=== PATIENT | female | born 1955 | race Caucasian/White ===

== ENCOUNTER → 2016-06-26 | Outpatient (CLI) | payer OTHER ==
[~2016-06-26] MED LIST: ACCUNEB SO1.25 MG/1; ACETAMINOPHEN325 M1 PO; ASPIR 8181 MG PO; ATIVAN0.5 MG PO; ATORVASTATIN CA40 MG PO; CARVEDILOL3.125 MG PO; CYCLOBENZAPRINE5 MG PO; DEMADEX20 MG PO; DUONEB 2.5-0.5 M3 ML INH; GABAPENTIN 100100 MG PO; HYDROCODONE-AP1 EAC6 PO; JANUVIA25 MG PO; KEFLEX500 MG PO; LASIX 40 MG TAB40 M2 PO; LEVOTHYROXIN0.025 MG PO; LEVOTHYROXIN0.075 MG PO; MAGNESIUM OXID400 MG PO; MILK OF MA2400 MG/10 PO; MIRTAZAPINE15 M2 PO; MYLANTA PO; NICOTINE PATCH TRANSDERM; NICOTINE TRANSDE7 MG TRANSDERM; NORCO 5-325 TA1 EACH PO; PLAVIX 75 MG TA75 M1 PO; PREVALITE PACKET4 GM PO; PROTONIX40 M1 PO; SENNA8.6 MG PO; SENOKOT-S1 TA1 PO; TRIPHROCAPS SOFT1 MG PO; TUMS PO; VITAMIN D2000 UNIT PO; VITAMIN E400 UNIT PO; ZINC50 M1 PO
== END ==
LOC: RAD 12:51
DX: M19.011 Primary osteoarthritis, right shoulder (principal)

== ENCOUNTER → 2016-08-14 | Outpatient (CLI) | payer OTHER | LOC: RAD 14:52 | DX: J90 Pleural effusion, not elsewhere classified (principal) ==

== ENCOUNTER → 2016-08-21 | Outpatient (CLI) | payer OTHER ==
--- NOTE | ~2016-08-21 | CNG ---
[facility] [place] [address] CYTO-NONGYN REPORT PROCEDURE Name: PERNELL PEREZ Room #: REG [facility]..#: [id number] Admission: 08/21/16 Date of : 51 Discharge: Report #: [id number] Path Case #: [id number] CYTOPATHOLOGY REPORT COLLECTION DATE: 08/21/2016 RECEIVED DATE: 08/21/2016 SUBMITTING PHYS: Dr. Fady Corbin OTHER PHYS: JANES Cano CLINICAL HISTORY: Right pleural effusion. SPECIMEN(S) RECEIVED: A.Pleural fluid, Right * * * * * * * * * * * * FINAL DIAGNOSIS: A. Pleural fluid, Right: No malignant epithelial cells identified. Paucicellular specimen with rare reactive mesothelial cells showing focal reactive atypia and scattered acute and chronic inflammatory cells identified. PATHOLOGIST: Geeta Bonilla M.D. REPORT ELECTRONICALLY SIGNED BY: Geeta Bonilla M.D. DATE/TIME: 08/22/2016 11:40 * * * * * * * * * * * * GROSS PATHOLOGY: A. Pleural fluid, Right: The specimen is submitted unfixed, labeled "Pernell Perez". Received by the Cytology Department is 15 mL of cloudy yellow fluid. One ThinPrep slide and a cell block were prepared. (clt 08.21.2016) DELIVERY AND MAIL SORTER(S): PAWAN Munoz([facility]) INITIAL CPT CODE(S): A; 39228, 36496 Professional services performed by [facility] at [facility] [address], [place] [address] Technical services performed by [facility] at [address] [place] [address]., [address], [place] [address]. [facility] [address] [place] [address], [facility] [address] [place] [address] [facility] [address] [place] [address] CYTO-NONGYN REPORT PROCEDURE Name: PERNELL PEREZ Room #: REG CLDarron Rivera.#: [id number] Admission: 08/21/16 Date of : 51 Discharge: Report #: [id number] Path Case #: [id number] PHONE: [phone] DIRECTOR: Randy Parish M.D. * * * END OF REPORT * * *
[2016-08-21 13:12] LABS: HEMOGLOBIN 9.8 gm/dL (12.0-15.0); MCH 29.5 pg (26.0-34.0); MCHC 31.7 g/dL (28.0-37.0); MCV 93.1 fL (80.0-100.0); PLATELET COUNT 178 thou/uL (150-400); RBC 3.32 mil/uL (4.20-5.00); RDW 20.3 % (10.5-14.5); WBC 6.8 thou/uL (4.0-11.0)
[2016-08-21 13:14] LABS: MANUAL DIFF YES
[2016-08-21 13:23] LABS: CALCIUM 8.8 mg/dL (8.5-10.1); CREATININE 6.1 mg/dL (0.6-1.0); POTASSIUM 5.5 mmol/L (3.5-5.1)
[2016-08-21 13:24] LABS: INR 1.1; PROTIME 11.5 Seconds (9.3-11.4)
[2016-08-21 13:31] LABS: ABSOLUTE NEUTROPHILS 4.1 thou/uL (1.4-8.2); PLATELET ESTIMATE NORMAL; TOTAL CELL COUNT 100
[2016-08-21 14:39] LABS: BF NUCLEATED CELLS 360; BF RBC 420
[2016-08-21 14:40] LABS: MANUAL DIFF YES
[2016-08-21 15:03] LABS: CLARITY HAZY; COLOR YELLOW; TOTAL VOLUME 60 mL
[2016-08-21 15:35] LABS: BF MACROPHAGE 19; BF NEUTROPHILS 1
[2016-08-22 15:07] LABS: BODY FLUID ALBUMIN 1.5 g/dL (()); BODY FLUID AMYLASE 56 U/L (()); BODY FLUID GLUCOSE 152 mg/dL (()); BODY FLUID LDH 121 IU/L (())
== END ==
LOC: ULTRA 07:44
PROVIDERS: Internal Medicine Pulmonary Disease
DX: J90 Pleural effusion, not elsewhere classified (principal); D64.89 Other specified anemias

== ENCOUNTER → 2016-09-04 | Outpatient (CLI) | payer OTHER | LOC: RAD 08:26 | DX: J90 Pleural effusion, not elsewhere classified (principal) ==

== ENCOUNTER → 2016-10-04 | Outpatient (CLI) | payer OTHER | LOC: RAD 13:26 | DX: J90 Pleural effusion, not elsewhere classified (principal) ==

== ENCOUNTER → 2016-10-11 | Outpatient (CLI) | payer OTHER ==
[~2016-10-11] MED LIST changes: +BENADRYL25 MG PO; +CLARINEX5 MG PO; +JANUVIA100 MG PO; +METOLAZONE 5 MG5 MG PO; +PREDNISONE 10 M10 MG PO; +RENVELA800 MG PO; +SANDOSTATI50 MCG/1 M SUBQ; +VIRT-CAPS SOFTGE1 MG PO
--- NOTE | ~2016-10-11 | CNG ---
[facility] [employer] [place] [address] CYTO-NONGYN REPORT PROCEDURE Name: PERNELL PEREZ Room #: REG [facility]..#: [id number] Admission: 10/11/16 Date of : 51 Discharge: Report #: [id number] Path Case #: [id number] CYTOPATHOLOGY REPORT COLLECTION DATE: 10/11/2016 RECEIVED DATE: 10/11/2016 SUBMITTING PHYS: Dr. Fady Corbin OTHER PHYS: JANES Cano CLINICAL HISTORY: Pleural effusion. SPECIMEN(S) RECEIVED: A.Pleural fluid * * * * * * * * * * * * FINAL DIAGNOSIS: A. Pleural fluid: - No malignant epithelial cells identified. Reactive mesothelial cells and lymphocytes are present in a background of debris. PATHOLOGIST: Lisset Cook M.D. REPORT ELECTRONICALLY SIGNED BY: Lisset Cook M.D. DATE/TIME: 10/12/2016 14:22 * * * * * * * * * * * * GROSS PATHOLOGY: A. Pleural fluid: The specimen is submitted unfixed, labeled "Pernell Perez". Received by the Cytology Department is 15 mL of cloudy yellow fluid. One ThinPrep slide and a cell block were prepared. (clt 10.11.2016) BEVERAGE MANAGER(S): PAWAN Conner([facility]) INITIAL CPT CODE(S): A; 48326, 18891 Professional services performed by [facility] at [facility] [address] [facility] , [place] [address] Technical services performed by [facility] at [address] [place] [address]., [address], [place] [address]. [facility] [address] [place] [address], [facility] [address] [place] [address] PHONE: [phone] [facility] [address] [place] [address] CYTO-NONGYN REPORT PROCEDURE Name: PERNELL PEREZ Room #: REG CL Stormy.#: [id number] Admission: 10/11/16 Date of : 51 Discharge: Report #: [id number] Path Case #: [id number] DIRECTOR: Randy Parish M.D. * * * END OF REPORT * * *
[2016-10-11 10:43] LABS: HEMATOCRIT 25.9 % (37.0-47.0); MCV 93.5 fL (80.0-100.0); RBC 2.77 mil/uL (4.20-5.00); RDW 17.1 % (10.5-14.5); WBC 7.6 thou/uL (4.0-11.0)
[2016-10-11 10:59] LABS: CALCIUM 8.4 mg/dL (8.5-10.1); CREATININE 4.9 mg/dL (0.6-1.0); POTASSIUM 4.3 mmol/L (3.5-5.1)
[2016-10-11 11:01] LABS: APTT 24.9 Seconds (24.5-32.8); INR 1.1; PROTIME 11.3 Seconds (9.3-11.4)
[2016-10-11 13:44] LABS: BF NUCLEATED CELLS 461; BF RBC 978
[2016-10-11 17:11] LABS: BF NEUTROPHILS 0; CLARITY SLIGHTLY CLOUDY; COLOR YELLOW; MANUAL DIFF YES; TOTAL VOLUME 60 mL
[2016-10-11 17:12] LABS: BF COMMENTS MONOCYTE 1; BF MACROPHAGE 31
[2016-10-12 13:09] LABS: BODY FLUID ALBUMIN 1.6 g/dL (()); BODY FLUID AMYLASE 70 U/L (()); BODY FLUID GLUCOSE 145 mg/dL (()); BODY FLUID LDH 122 IU/L (()); BODY FLUID PROTEIN 3.3 g/dL (())
== END | disposition home or self-care (01) ==
LOC: ULTRA 09:48
PROVIDERS: Internal Medicine Pulmonary Disease
DX: J90 Pleural effusion, not elsewhere classified (principal)

== ENCOUNTER 2016-10-21 16:24 | Inpatient (IN) | payer OTHER ==
[~2016-10-21] VITALS: Ht 160 cm; Wt 74.6 kg
--- NOTE | ~2016-10-21 | CNG ---
[facility] [place] [address] CYTO-NONGYN REPORT PROCEDURE Name: PERNELL PEREZ Room #: 205-P [facility] IN M.R.#: [id number] Admission: 10/21/16 Date of : 51 Discharge: 10/23/16 Report #: [id number] Path Case #: [id number] CYTOPATHOLOGY REPORT COLLECTION DATE: 10/23/2016 RECEIVED DATE: 10/23/2016 SUBMITTING PHYS: Dr. Zbigniew Hdez OTHER PHYS: JANSE Cano CLINICAL HISTORY: SOA, itching, aching legs. SPECIMEN(S) RECEIVED: A.Pleural fluid, Right * * * * * * * * * * * * FINAL DIAGNOSIS: A. Right Pleural fluid: - No malignant epithelial cells identified. A few mesothelial cells and lymphocytes identified. PATHOLOGIST: Lisset Cook M.D. REPORT ELECTRONICALLY SIGNED BY: Lisset Cook M.D. DATE/TIME: 10/24/2016 13:54 * * * * * * * * * * * * GROSS PATHOLOGY: A. Pleural fluid, Right: The specimen is submitted unfixed, labeled "Pernell Perez". Received by the Cytology Department is 25 mL of yellow cloudy fluid. One ThinPrep slide and a cell block were prepared. (clt 10.23.2016) INSPECTOR ALIGNING(S): PAWAN Munoz([facility]) INITIAL CPT CODE(S): A; 39787, 21370 Professional services performed by [facility] at [facility] [address], [place] [address] Technical services performed by [facility] at [address] [place] [address]., [address], [place] [address]. [facility] [address] [place] [address], [address] [place] [address] PHONE: [phone] [facility] [address] [place] [address] CYTO-NONGYN REPORT PROCEDURE Name: PERNELL PEREZ Room #: 205-P [facility] IN M.R.#: [id number] Admission: 10/21/16 Date of : 51 Discharge: 10/23/16 Report #: [id number] Path Case #: [id number] DIRECTOR: Randy Parish M.D. * * * END OF REPORT * * *
--- NOTE | ~2016-10-21 | EKG ---
[address] [address] ELECTROCARDIOGRAM REPORT Name: PERNELL PEREZ Room #: 205-P ADM IN M.R.#: [id number] Admission: 10/21/16 Attend Phys: Zbigniew Hdez MD Discharge: Date of : 51 Report #: [id number] THIS REPORT FOR: //name// [facility] ED Test Date: 2016-10-21 Test Time: 16:48:15 Pat Name: PERNELL PEREZ Department: Room: [facility] Gender: F Food Operations Manager: JUSTINE : 1955 Requested By: Devendra Perrin Order Number: [id number] MD: Saul Johnson Measurements Intervals [place] Rate: 76 P: 41 MN: 131 QRS: 43 QRSD: 89 T: 41 QT: 428 QTc: 482 Interpretive Statements Sinus rhythm Anteroseptal infarct, old Compared to ECG 12/30/2015 15:45:46 Atrial premature complex(es) no longer present Myocardial infarct finding still present Electronically Signed On 10-21-2016 22:31:49 CDT by Saul Johnson [email or web address] <ELECTRONICALLY SIGNED> By: Saul Johnson MD 10/21/16 2231 1648 1648 Saul Johnson MD /EPI
[~2016-10-21 16:24] MED LIST changes: -BENADRYL25 MG PO; -CLARINEX5 MG PO; -JANUVIA100 MG PO; -METOLAZONE 5 MG5 MG PO; -PREDNISONE 10 M10 MG PO; -RENVELA800 MG PO; -SANDOSTATI50 MCG/1 M SUBQ; -VIRT-CAPS SOFTGE1 MG PO
[2016-10-21 16:30] VITALS: BP 109/67
[2016-10-21 17:21] LABS: ABSOLUTE NEUTROPHILS 4.1 thou/uL (1.4-8.2); BASOPHILS 2.2 % (0.0-2.0); EOSINOPHILS 4.7 % (0.0-3.0); HEMOGLOBIN 8.1 gm/dL (12.0-15.0); LYMPHOCYTES 20.7 % (24.0-44.0); MCH 28.7 pg (26.0-34.0); MCHC 32.2 g/dL (28.0-37.0); MCV 89.1 fL (80.0-100.0); MONOCYTES 9.2 % (1.0-8.0); PLATELET COUNT 195 thou/uL (150-400); POLYS 63.2 % (36.0-66.0); WBC 6.5 thou/uL (4.0-11.0)
[2016-10-21 17:22] LABS: MANUAL DIFF NO
[2016-10-21 17:38] LABS: ANION GAP 9 mmol/L (7-16); BUN 33 mg/dL (7-18); CHLORIDE 95 mmol/L (98-107); CO2 28 mmol/L (21-32); CREATININE 6.7 mg/dL (0.6-1.0); GLUCOSE 127 mg/dL (74-106); POTASSIUM 4.5 mmol/L (3.5-5.1); SODIUM 132 mmol/L (136-145)
[2016-10-21 17:44] LABS: NT-PRO BRAIN NAT PEPTIDE 8252 pg/mL (<300); TROPONIN-I < 0.04 ng/mL (<0.04-0.07)
[2016-10-21 19:18] VITALS: BP 113/73
[2016-10-21] MEDS ORDERED: METOLAZONE 5 MG5 MG PO (20:12)
[2016-10-21 20:54] VITALS: BP 155/62
[2016-10-21] MEDS ORDERED: VIRT-CAPS SOFTGE1 MG PO (21:02)
[2016-10-21] MEDS ORDERED: BENADRYL25 MG PO (21:04)
[2016-10-21] MEDS ORDERED: SANDOSTATI50 MCG/1 M SUBQ (21:06)
[2016-10-21] MEDS ORDERED: JANUVIA100 MG PO (21:07)
[2016-10-21] MEDS ORDERED: RENVELA800 MG PO (21:07)
[2016-10-21] MEDS ORDERED: CLARINEX5 MG PO (21:14)
[2016-10-21 22:07] LABS: ABG SAMPLE TYPE ARTERIAL; BE(vivo) 1.7 mmol/L (-2 to +3); HCO3 27.4 mmol/L (22.0-26.0); LACTATE 1.47 mmol/L (0.5-2.0); O2(CT) 11.8 mL/dL (15.0-23.0); PCO2 48.4 mmHg (35.0-45.0); PO2 82.4 mmHg (80.0-100.0); sO2 95.7 % (92.0-98.0); tCO2 28.8 mmol/L (24.0-30.0)
[2016-10-21 22:08] LABS: STICK SITE R.RADIAL
[2016-10-21 23:11] VITALS: BP 155/75
[2016-10-21 23:21] VITALS: BP 155/63
[2016-10-22] VITALS (8 sets, daily range): BP systolic 159–202; BP diastolic 62–88
[2016-10-22 02:36] LABS: HEMATOCRIT 25.1 % (37.0-47.0); HEMOGLOBIN 8.1 gm/dL (12.0-15.0); MCH 28.8 pg (26.0-34.0); MCHC 32.4 g/dL (28.0-37.0); MCV 88.9 fL (80.0-100.0); RBC 2.82 mil/uL (4.20-5.00); RDW 17.1 % (10.5-14.5); WBC 8.8 thou/uL (4.0-11.0)
[2016-10-22 02:43] LABS: CALCIUM 7.6 mg/dL (8.5-10.1); CREATININE 7.1 mg/dL (0.6-1.0)
[2016-10-22 02:49] LABS: POTASSIUM 5.5 mmol/L (3.5-5.1)
[2016-10-23] VITALS (7 sets, daily range): BP systolic 146–188; BP diastolic 57–82
[2016-10-23 03:00] LABS: HEMATOCRIT 24.1 % (37.0-47.0); HEMOGLOBIN 7.8 gm/dL (12.0-15.0); MCH 28.5 pg (26.0-34.0); MCHC 32.3 g/dL (28.0-37.0); MCV 88.3 fL (80.0-100.0); RBC 2.73 mil/uL (4.20-5.00); RDW 17.3 % (10.5-14.5); WBC 5.3 thou/uL (4.0-11.0)
[2016-10-23 03:12] LABS: CALCIUM 7.5 mg/dL (8.5-10.1)
[2016-10-23 03:16] LABS: CREATININE 3.9 mg/dL (0.6-1.0); POTASSIUM 3.5 mmol/L (3.5-5.1)
[2016-10-23 11:46] LABS: BF NUCLEATED CELLS 340; BF RBC 1382
[2016-10-23 11:49] LABS: CLARITY HAZY; COLOR YELLOW; TOTAL VOLUME 60 mL
[2016-10-23] MEDS ORDERED: PREDNISONE 10 M10 MG PO (12:34)
[2016-10-23 13:03] LABS: BF MACROPHAGE 16; BF NEUTROPHILS 0; MANUAL DIFF YES
[2016-10-24 15:07] LABS: BODY FLUID ALBUMIN 1.4 g/dL (()); BODY FLUID AMYLASE 57 U/L (()); BODY FLUID GLUCOSE 195 mg/dL (()); BODY FLUID LDH 124 IU/L (())
== END 2016-10-23 18:15 | disposition home or self-care (01) | DRG 190 ==
LOC: ER 16:24 → EROBS 18:18 → 2N 18:18
PROVIDERS: Emergency Medicine; Hospitalist; Nurse Practitioner Acute Care
PROC: 0W993ZX Drainage of Right Pleural Cavity, Percutaneous Approach, Diagnostic (ICD-10-PCS; principal; 2016-10-23)
PROC: BB4BZZZ Ultrasonography of Pleura (ICD-10-PCS; principal; 2016-10-23)
DX: J44.1 Chronic obstructive pulmonary disease with (acute) exacerbation (principal); N18.6 End stage renal disease; J90 Pleural effusion, not elsewhere classified; I50.9 Heart failure, unspecified; E11.22 Type 2 diabetes mellitus with diabetic chronic kidney disease; E03.9 Hypothyroidism, unspecified; E11.42 Type 2 diabetes mellitus with diabetic polyneuropathy; B19.20 Unspecified viral hepatitis C without hepatic coma; T50.995A Adverse effect of other drugs, medicaments and biological substances, initial encounter; I25.10 Atherosclerotic heart disease of native coronary artery without angina pectoris; Z99.2 Dependence on renal dialysis; Z93.0 Tracheostomy status; Z82.49 Family history of ischemic heart disease and other diseases of the circulatory system; Y92.89 Other specified places as the place of occurrence of the external cause; Z86.73 Personal history of transient ischemic attack (TIA), and cerebral infarction without residual deficits; Z86.718 Personal history of other venous thrombosis and embolism; Z87.81 Personal history of (healed) traumatic fracture; Z87.891 Personal history of nicotine dependence; Z90.710 Acquired absence of both cervix and uterus; Z88.8 Allergy status to other drugs, medicaments and biological substances
CPT/HCPCS: 10081; 32100

== ENCOUNTER → 2016-11-15 | Outpatient (CLI) | payer OTHER ==
[~2016-11-15] MED LIST changes: +BENADRYL25 MG PO; +CLARINEX5 MG PO; +JANUVIA100 MG PO; +METOLAZONE 5 MG5 MG PO; +PREDNISONE 10 M10 MG PO; +RENVELA800 MG PO; +SANDOSTATI50 MCG/1 M SUBQ; +VIRT-CAPS SOFTGE1 MG PO
== END ==
LOC: RAD 12:27
DX: J90 Pleural effusion, not elsewhere classified (principal); I51.7 Cardiomegaly; J98.11 Atelectasis

== ENCOUNTER → 2016-11-22 | Outpatient (CLI) | payer OTHER ==
--- NOTE | ~2016-11-22 | CNG ---
[facility] [place] [address] CYTO-NONGYN REPORT PROCEDURE Name: PERNELL PEREZ Room #: REG [facility].#: [id number] Admission: 11/22/16 Date of : 51 Discharge: Report #: [id number] Path Case #: [id number] CYTOPATHOLOGY REPORT COLLECTION DATE: 11/22/2016 RECEIVED DATE: 11/22/2016 SUBMITTING PHYS: Dr. Fady Corbin OTHER PHYS: JANES Cano CLINICAL HISTORY: Pleural effusion. SPECIMEN(S) RECEIVED: A.Pleural fluid, Right * * * * * * * * * * * * FINAL DIAGNOSIS: A. Pleural fluid, Right: - No malignant epithelial cells identified. Paucicellular specimen with rare mesothelial cells and predominantly chronic inflammatory cells (including occasional lymphocytes) are present. PATHOLOGIST: Geeta Bonilla M.D. REPORT ELECTRONICALLY SIGNED BY: Geeta Bonilla M.D. DATE/TIME: 11/23/2016 13:53 * * * * * * * * * * * * GROSS PATHOLOGY: A. Pleural fluid, Right: The specimen is submitted unfixed, labeled "Pernell Perez". Received by the Cytology Department is 35 mL of clear yellow fluid. One ThinPrep slide and a cell block were prepared. (clt 11.22.2016) SKIN CARE THERAPIST(S): PAWAN Conner([facility]) INITIAL CPT CODE(S): A; 17368, 19285 Professional services performed by [facility] at [facility] [address], [place] [address] Technical services performed by [facility] at [address] [place] [address]., [address], [place] [address]. [facility] [address] [place] [address], [facility] [address] [place], [place] [address] [place] [address] [place] [address] CYTO-NONGYN REPORT PROCEDURE Name: PERNELL PEREZ Room #: REG CLDarron Rivera.#: [id number] Admission: 11/22/16 Date of : 51 Discharge: Report #: [id number] Path Case #: [id number] PHONE: [phone] DIRECTOR: Randy Parish M.D. * * * END OF REPORT * * *
[2016-11-22 09:50] LABS: HEMATOCRIT 31.6 % (37.0-47.0); HEMOGLOBIN 9.8 gm/dL (12.0-15.0); MCH 27.5 pg (26.0-34.0); MCHC 31.1 g/dL (28.0-37.0); MCV 88.6 fL (80.0-100.0); RBC 3.57 mil/uL (4.20-5.00); WBC 5.7 thou/uL (4.0-11.0)
[2016-11-22 09:58] LABS: CALCIUM 8.5 mg/dL (8.5-10.1); CREATININE 4.5 mg/dL (0.6-1.0); POTASSIUM 3.6 mmol/L (3.5-5.1); PROTIME 10.7 Seconds (9.3-11.4)
[2016-11-22 11:00] LABS: CLARITY CLEAR; COLOR YELLOW; TOTAL VOLUME 60 mL
[2016-11-22 12:03] LABS: BF NUCLEATED CELLS 401; BF RBC 1538
[2016-11-22 12:45] LABS: BF MACROPHAGE 18; BF NEUTROPHILS 2; MANUAL DIFF YES
[2016-11-23 11:08] LABS: BODY FLUID ALBUMIN 1.4 g/dL (()); BODY FLUID AMYLASE 57 U/L (()); BODY FLUID GLUCOSE 120 mg/dL (()); BODY FLUID LDH 104 IU/L (()); BODY FLUID PROTEIN 2.7 g/dL (())
== END ==
LOC: RAD 09:00 → CAT 11:59
PROVIDERS: Internal Medicine Pulmonary Disease
DX: J90 Pleural effusion, not elsewhere classified (principal)

== ENCOUNTER → 2016-12-04 | Outpatient (CLI) | payer OTHER | LOC: RAD 12:24 | DX: J90 Pleural effusion, not elsewhere classified (principal); J98.11 Atelectasis ==

== ENCOUNTER → 2017-02-14 | Outpatient (CLI) | payer OTHER ==
[2017-02-14 10:05] LABS: HEMATOCRIT 28.7 % (37.0-47.0); HEMOGLOBIN 8.8 gm/dL (12.0-15.0); MCH 25.5 pg (26.0-34.0); MCHC 30.6 g/dL (28.0-37.0); MCV 83.4 fL (80.0-100.0); RBC 3.44 mil/uL (4.20-5.00); RDW 20.4 % (10.5-14.5); WBC 6.6 thou/uL (4.0-11.0)
[2017-02-14 10:16] LABS: PROTIME 10.7 Seconds (9.3-11.4)
[2017-02-14 10:17] LABS: CALCIUM 8.3 mg/dL (8.5-10.1); CREATININE 4.5 mg/dL (0.6-1.0); POTASSIUM 4.4 mmol/L (3.5-5.1)
== END | disposition home or self-care (01) ==
LOC: LABMALL 09:32
PROVIDERS: Internal Medicine Pulmonary Disease
DX: J90 Pleural effusion, not elsewhere classified (principal); J44.9 Chronic obstructive pulmonary disease, unspecified

== ENCOUNTER 2017-03-06 15:40 | Inpatient (IN) | payer OTHER ==
[~2017-03-06] VITALS: Ht 162.6 cm; Wt 65.8 kg
--- NOTE | ~2017-03-06 | HC ---
[facility] [address] [place] [address] CONSULTATION Name: PERNELL PEREZ Room #: 437-P ADM IN M.R.#: [id number] Admission: 03/07/17 Attend Phys: Vinny Olvera DO Discharge: Date of : 51 Report #: [id number] THIS REPORT FOR: //name// CC: Vinny Boswell DATE OF SERVICE: 03/07/2017 REASON FOR CONSULTATION: End-stage renal disease. REASON FOR PRESENTATION: Dizziness. HISTORY OF PRESENT ILLNESS: The patient is a 61-year-old who is well known to me. She is an end-stage renal disease, maintained on hemodialysis every Saturday, and Saturday. She is also known to have liver cirrhosis with recurrent ascites, pleural effusion. She has had repeated episodes of GI bleeding due to AV malformations with numerous hospitalizations related to her GI bleeding. She had a double balloon procedure done at [facility] and then after that she was started on some Sandostatin for her GI bleeding and this has stabilized her GI bleeding with a hemoglobin in the 9 range. She presented complaining of dizziness that started yesterday when she woke up and her way to the dialysis treatment. She completed her dialysis and then presented for further evaluation and management. No significant chest pain. She has vertigo for which she used to take meclizine. She has stopped taking that for some time because of improvement of her symptoms. No reported weakness in any part of her body. No numbness. No visual changes. No headache. She was admitted for further evaluation and management. Initial workup was reviewed and this was nonrevealing other than a right-sided pleural effusion. PAST MEDICAL HISTORY: Extensive and includes the followin. Diabetes mellitus. 2. End-stage renal disease, maintained on hemodialysis. 3. Liver cirrhosis with hepatitis C. 4. Chronic obstructive pulmonary disease. 5. Recurrent pleural effusion. 6. Recurrent gastrointestinal bleeding. 7. Status post hysterectomy. 8. Status post left rotator cuff repair. 9. Status post cardiac arrest requiring ICU stay with a complete heart block. 10. Status post DVT. 11. Coronary artery disease with multiple stents. 12. Left AV fistula. 13. Repeated thoracentesis and paracentesis for both pleural effusion and ascites. [facility] [address] [place] [address] CONSULTATION Name: PERNELL PEREZ Room #: [facility] IN .R.#: [id number] Admission: 03/07/17 Attend Phys: Vinny Olvera DO Discharge: Date of : 51 Report #: [id number] FAMILY HISTORY: Significant for stroke. SOCIAL HISTORY: No drug or alcohol abuse. She is a former smoker. She smoked for 40 years 1 pack per day. She quit a few years ago. REVIEW OF SYSTEMS: GENERAL: Weakness and dizziness. CARDIOVASCULAR: Occasional shortness of breath. PULMONARY: Shortness of breath. GASTROINTESTINAL: No hematemesis or melena. GENITOURINARY: Still makes little amount of urine. No frequency, no urgency. NEUROLOGICAL: As per the history of present illness. MEDICATIONS: 1. Amlodipine. 2. Atorvastatin. 3. Pantoprazole. 4. Sevelamer. 5. Clarinex. 6. Lyrica. 7. Octreotide. PHYSICAL EXAMINATION: GENERAL: The patient is alert, oriented, in no apparent distress. VITAL SIGNS: Temperature 36.7, pulse rate 72, respiratory rate 17, blood pressure 136/44. HEAD AND NECK: No jugular venous distention, no bruit, no thyromegaly. CHEST: Decreased air entry on the right side. CARDIOVASCULAR: Regular, with no rub detected. ABDOMEN: Soft, nontender with no hepatosplenomegaly. LOWER EXTREMITIES: No edema. LABORATORY DATA: Reviewed. BUN is 16, creatinine is 3. Hemoglobin is 7.7. Chest x-ray reviewed. ASSESSMENT, IMPRESSION AND PLAN: 1. Vertigo. 2. End-stage renal disease, maintained on dialysis. 3. Recurrent pleural effusion. 4. Hep C with recurrent ascites 5. Coronary artery disease. 6. Chronic obstructive pulmonary disease. 7. Hypothyroidism. 8. Repeated episodes of gastrointestinal bleeding. 9. Dialysis will be arranged for the patient to be done tomorrow[place] [address] CONSULTATION Name: PERNELL PEREZ Room #: 437-P [facility] IN M.R.#: [id number] Admission: 03/07/17 Attend Phys: Vinny Olvera DO Discharge: Date of : 51 Report #: [id number] for very gentle ultrafiltration with the dialysis tomorrow. She has significant right-sided pleural effusion and pulmonary usually follows her. She is also known to have repeated episodes of gastrointestinal bleeding and I will resume her octreotide. 10. Continue with her usual home medications including her phosphorus binders, peripheral neuropathy medications, thyroid medications. By: 1043 [id number] Shen Torres MD /nt
--- NOTE | ~2017-03-06 | EKG ---
[address] [address] ELECTROCARDIOGRAM REPORT Name: PERNELL PEREZ Room #: 437-P [facility]#: [id number] Admission: 03/06/17 Attend Phys: Willy Dyson MD Discharge: Date of : 51 Report #: [id number] THIS REPORT FOR: //name// [facility] ED Test Date: 2017-03-06 Test Time: 16:09:39 Pat Name: PERNELL PEREZ Department: Room: [facility] Gender: F Feed Mixer: MZOOK : 1955 Requested By: Scot Snyder Order Number: [id number] MD: Saul Johnson Measurements Intervals [place] Rate: 70 P: 45 MA: 170 QRS: 57 QRSD: 94 T: 30 QT: 428 QTc: 462 Interpretive Statements Sinus rhythm Baseline wander in lead(s) V2 Compared to ECG 10/21/2016 16:48:15 Myocardial infarct finding no longer present Electronically Signed On 03-06-2017 21:23:19 [employer] SUPERVISOR by Saul Johnson [email or web address] <ELECTRONICALLY SIGNED> By: Saul Johnson MD 03/06/17 2123 1609 1609 Saul Johnson MD /EPI
--- NOTE | ~2017-03-06 | HC ---
[facility] [address] [place] [address] CONSULTATION Name: PERNELL PEREZ Room #: 437-P ADM IN M.R.#: [id number] Admission: 03/07/17 Attend Phys: Vinny Olvera DO Discharge: Date of : 51 Report #: [id number] THIS REPORT FOR: //name// CC: Vinny Boswell DATE OF SERVICE: 03/08/2017 HISTORY OF PRESENT ILLNESS: The patient is a 61-year-old white female who is a chronic dialysis patient over approximately the last year. She had an episode of severe dizziness prior to dialysis and was admitted to [facility]. She underwent evaluation and MRI showed a small acute subacute ischemic infarct of the right posterior lateral temporal lobe. Her main complaint has been dizziness with position change. She is on Antivert, which seems to help. She also has a premorbid history of neuropathy affecting her hands and her feet. Neurology is involved and she has the infarct of the right temporal lobe and also appears to have a concurrent viral labyrinthitis. She has had a significant functional decline and we are seeing her in rehabilitation medicine consultation. PAST MEDICAL HISTORY: Includes end-stage renal disease on hemodialysis since last May, non-insulin dependent diabetes mellitus, liver cirrhosis with hepatitis C, hypothyroidism, COPD, peripheral neuropathy, left rotator cuff repair, right knee surgery. Complete heart block, was ventilated 02/03/2015 through 02/06/2015. DVT 02/03/2015. Coronary artery disease with stenting 12/22/2016, multiple thoracenteses for recurrent pleural effusions. ALLERGIES: ESTROGENS, INSULIN LISPRO AND METHOCARBAMOL. MEDICATIONS: Please see the full medication listing. HABITS: Former tobacco abuse, quit greater than a year ago. Has a 75-xavs-mkap history. No history of alcohol abuse. SOCIAL HISTORY: Lives in an apartment alone, elevator is present. She premorbidly utilized a walker and also has a wheelchair. There are no steps. She has a sister that lives on the first floor of the same apartment complex. REVIEW OF SYSTEMS: Did not offer any current complaints of chest pain, shortness of breath or abdominal discomfort. Her main complaint is the dizziness with attempted sitting up. She notes she is right handed. She has concern regarding her balance and functional mobility and ADLs. PHYSICAL EXAMINATION: GENERAL: A 61-year-old white female in no obvious distress. VITAL SIGNS: Last recorded temperature is 98.1, pulse 64, respirations 18, [facility] [address] [place] [address] CONSULTATION Name: PERNELL PEREZ Room #: 437-P [facility] ..#: [id number] Admission: 03/07/17 Attend Phys: Vinny Olvera DO Discharge: Date of : 51 Report #: [id number] blood pressure 151/76. She is alert, pleasant. HEENT: Appeared to be benign. NEUROLOGIC: Cranial nerves: She does have some lateral nystagmus, but no horizontal nystagmus. She was able to verbalize reasonably well. She is currently on dialysis through the left arm fistula and I did not do a full examination of the left upper extremity. She appears to have reasonable coordination of the left thumb, wrist and hand. Functional range of motion of the right upper extremity, strength is grade 4/5. She does reasonably good with yzdaar-zf-lnic. LOWER EXTREMITIES: Functional range of motion, strength is grade 4- proximally, 3+ distally. She does have decreased distal sensation both feet and distal hands. DTRs are trace to 1. Functionally, she is needing contact to min assist for basic transfers and short distance ambulation. She has to move slowly. ASSESSMENT: A 61-year-old white female with the following problem list: 1. Right posterior lateral temporal lobe ischemic stroke. 2. Viral labyrinthitis. 3. End-stage renal disease, on hemodialysis. 4. Premorbid significant peripheral neuropathy affecting both distal upper and lower extremities. 5. Chronic obstructive pulmonary disease. 6. Liver cirrhosis with hepatitis C. 7. Recurrent gastrointestinal bleeding. 8. Prior cardiac arrest with complete heart block. 9. History of coronary artery disease with multiple stents. 10. History of repeated thoracentesis and paracentesis for both pleural effusion and ascites. 11. Status post hysterectomy. PLAN: Complex lady with an acute stroke complicated by comorbid viral labyrinthitis. She does meet criteria for an acute in-hospital inpatient rehabilitation stay. She has had a significant functional decline from her premorbid level. From a preadmission screening perspective: 1. Prior level of function is delineated above. 2. Expected level of improvement would be for her to become modified independent with basic transfers, mobility and ADLs at the walker/wheelchair level as well as to improve as far as cognition and decrease in her overall dizziness. 3. Evaluation of the patient's risk for clinical complications. She has multiple significant comorbidities and has potential complications with any or all of them with her potential for GI bleeding, significant cardiac events, pleural effusions, lung disease, kidney disease, etc. 4. Condition that caused the need for rehabilitation would be the acute stroke. 5. Treatments needed would include PT, OT and speech 1 hour per day each five days a week throughout the duration of the acute inpatient rehabilitation stay. 6. Anticipated discharge destination will be back home where she lives alone. [address] [address] CONSULTATION Name: PERNELL PEREZ Room #: 437-P ADM IN M.R.#: [id number] Admission: 03/07/17 Attend Phys: Vinny Olvera DO Discharge: Date of : 51 Report #: [id number] 7. Would anticipate home healthcare therapies along with involvement of her sister. 8. The patient meets diagnostic criteria for an acute in-hospital inpatient rehabilitation stay. She meets medical necessity criteria and has considerable medical comorbidities as noted above. She does have tolerance for an acute rehab stay and has appropriate discharge goals back to the home setting. By: [id number] Nicanor Becerra MD /MITCH
--- NOTE | ~2017-03-06 | CNG ---
[facility] [place] [address] CYTO-NONGYN REPORT PROCEDURE Name: PERNELL PEREZ Room #: 437-P ADM IN M.R.#: [id number] Admission: 03/07/17 Date of : 51 Discharge: Report #: [id number] Path Case #: [id number] CYTOPATHOLOGY REPORT COLLECTION DATE: 03/08/2017 RECEIVED DATE: 03/08/2017 SUBMITTING PHYS: Dr. Vinny Olvera OTHER PHYS: JANES Cano CLINICAL HISTORY: Chest fluid, dizziness SPECIMEN(S) RECEIVED: A.Pleural fluid * * * * * * * * * * * * FINAL DIAGNOSIS: A. Pleural fluid: - No malignant cells identified. -Few mesothelial cells, macrophages and inflammatory cells identified. PATHOLOGIST: Lisset Cook M.D. REPORT ELECTRONICALLY SIGNED BY: Lisset Cook M.D. DATE/TIME: 03/11/2017 16:15 * * * * * * * * * * * * GROSS PATHOLOGY: A. Pleural fluid: The specimen is submitted unfixed, labeled "Pernell Perez". Received by the Cytology Department is 15 mL of cloudy red fluid. One ThinPrep slide and a formalin fixed cell block were prepared. (lg.) LEAD SOFTWARE TESTER(S): PAWAN Trejo([facility]) INITIAL CPT CODE(S): A; 60355, 04912 Professional services performed by [facility] at [facility] [employer] , [place] [address] Technical services performed by [facility] at [address] [place] [address]., [address], [place] [address]. [facility] [address] [place] [address], [facility] [address] [place] [address] PHONE: [phone] [facility] [address] [place] [address] CYTO-NONGYN REPORT PROCEDURE Name: PERNELL PEREZ Room #: 437-P ADM IN M.R.#: [id number] Admission: 03/07/17 Date of : 51 Discharge: Report #: [id number] Path Case #: [id number] DIRECTOR: Randy Parish M.D. * * * END OF REPORT * * *
--- NOTE | ~2017-03-06 | 2DMMODE ---
Formerly [facility] [address] [place] [address] 2 D/M-MODE ECHOCARDIOGRAM Name: PERNELL PEREZ Room #: 437-P ADM IN ..#: [id number] Admission: 03/07/17 Attend Phys: Vinny Olvera, Discharge: Date of : 51 Date of Service: 03/11/17 1545 Report #: [id number] THIS REPORT FOR: //name// APPROVED REPORT Study performed: 03/11/2017 13:29:09 EXAM: Comprehensive 2D, Doppler, and color-flow Echocardiogram Patient Location: Bedside Room #: 437 Status: routine BSA: 1.71 HR: 77 bpm BP: 126/72 mmHg Other Information Study Quality: Adequate Indications COPD CVA/TIA Diabetes Dyspnea Echo Enhancing Agent Indication: Rule out Shunt Agent(s) / Amount(s) Used: Agitated Saline 7 cc 2D Dimensions RVDd: 33.90 mm LVEF(%): 69.29 (>50%) IVSd: 11.15 (7-11mm) LVOT Diam: 18.75 (18-24mm) LVDd: 50.30 mm PWd: 10.79 (7-11mm) Ascending Ao: 30.12 (22-36mm) LVDs: 30.62 (25-40mm) Aortic Root: 30.99 mm IVC: 20.00 mm Mina's LVEF: 69.29 % Volumes Left Atrial Volume (Systole) Single Plane 4CH: 71.78 mL Single Plane 2CH: 61.32 mL LA ESV Index: 43.00 mL/m2 Aortic Valve AoV Peak Tulio.: 1.79 m/s AO Peak Gr.: 12.89 mmHg LVOT Max P.69 mmHg Formerly [facility] [address] [place] [address] 2 D/M-MODE ECHOCARDIOGRAM Name: PERNELL PEREZ Room #: 437-P [facility] IN ..#: [id number] Admission: 03/07/17 Attend Phys: Vinny Olvera, Discharge: Date of : 51 Date of Service: 03/11/17 1545 Report #: [id number] LVOT Max V: 1.29 m/s LUZ MARIA Vmax: 1.99 cm2 Mitral Valve E/A Ratio: 1.2 MV Decel. Time: 194.73 ms MV E Max Tulio.: 1.52 m/s MV A Tulio.: 1.28 m/s MV PHT: 56.47 ms IVRT: 73.82 ms Pulmonary Valve PV Peak Tulio.: 1.23 m/s PV Peak Gr.: 6.05 mmHg Pulmonary Vein P Vein S: 0.35 m/s P Vein A: 0.19 m/s P Vein D: 0.56 m/s P Vein A Dur.: 106.1 msec P Vein S/D Ratio: 0.63 Tricuspid Valve TR Peak Tulio.: 3.59 m/s TR Peak Gr.: 51.62 mmHg PA Pressure: 67.00 mmHg Left Ventricle The left ventricle is normal size. There is normal left ventricular wall thickness. Left ventricular systolic function is hyperdynamic. LVEF is 60-65%. Grade I - abnormal relaxation pattern. Right Ventricle The right ventricle is normal size. The right ventricular systolic function is normal. Atria Left atrium is dilated. Right atrium is dilated. Aortic Valve The aortic valve is normal in structure. Aortic valve is calcified. No aortic regurgitation is present. There is no aortic valvular stenosis. Mitral Valve The mitral valve is normal in structure. Mild mitral regurgitation. No evidence of mitral valve stenosis. Tricuspid Valve Formerly [facility] [address] [place] [address] 2 D/M-MODE ECHOCARDIOGRAM Name: PERNELL PEREZ Room #: 437-P [facility] IN [facility]#: [id number] Admission: 03/07/17 Attend Phys: Vinny Olvera, Discharge: Date of : 51 Date of Service: 03/11/17 1545 Report #: [id number] The tricuspid valve is normal in structure. There is mild tricuspid regurgitation. Estimated PAP 67 mmHg. There is moderate-severe pulmonary hypertension. Pulmonic Valve The pulmonary valve is normal in structure. Trace pulmonic regurgitation. Great Vessels The aortic root is normal in size. The inferior vena cava is dilated with no inspiratory collapse. Pericardium There is no pericardial effusion. <Conclusion> The left ventricle is normal size. LVEF is 60-65%. Left atrium is dilated. Right atrium is dilated. The aortic valve is normal in structure. Aortic valve is calcified. There is no aortic valvular stenosis. The mitral valve is normal in structure. Mild mitral regurgitation. The tricuspid valve is normal in structure. There is mild tricuspid regurgitation. Estimated PAP 67 mmHg. There is moderate-severe pulmonary hypertension. The pulmonary valve is normal in structure. Trace pulmonic regurgitation. There is no pericardial effusion. <ELECTRONICALLY SIGNED> By: Tay Galarza MD 03/11/17 1545 1545 1545 Tay Galarza MD /INF
[~2017-03-06 15:40] MED LIST changes: -MIRTAZAPINE15 M2 PO; +REMERON15 MG PO
[2017-03-06 15:41] VITALS: BP 146/42
[2017-03-06 17:14] LABS: ABSOLUTE NEUTROPHILS 4.1 thou/uL (1.4-8.2); BASOPHILS 0.5 % (0.0-2.0); EOSINOPHILS 7.4 % (0.0-3.0); HEMATOCRIT 24.7 % (37.0-47.0); HEMOGLOBIN 7.7 gm/dL (12.0-15.0); LYMPHOCYTES 17.9 % (24.0-44.0); MCH 25.5 pg (26.0-34.0); MCV 82.3 fL (80.0-100.0); MONOCYTES 10.3 % (1.0-8.0); PLATELET COUNT 196 thou/uL (150-400); POLYS 63.9 % (36.0-66.0); RDW 18.7 % (10.5-14.5); WBC 6.4 thou/uL (4.0-11.0)
[2017-03-06 17:16] LABS: MANUAL DIFF NO
[2017-03-06 17:30] LABS: ANION GAP 6 mmol/L (7-16); BUN 16 mg/dL (7-18); CALCIUM 8.1 mg/dL (8.5-10.1); CHLORIDE 101 mmol/L (98-107); CO2 30 mmol/L (21-32); GLUCOSE 137 mg/dL (74-106); POTASSIUM 4.2 mmol/L (3.5-5.1); SODIUM 137 mmol/L (136-145)
[2017-03-06 17:31] LABS: TROPONIN-I < 0.04 ng/mL (<0.06)
[2017-03-06 18:41] VITALS: BP 123/42
[2017-03-06 20:15] VITALS: BP 145/64
[2017-03-06 20:44] VITALS: BP 132/44
[2017-03-06] MEDS ORDERED: LYRICA 75 MG CA75 MG PO (20:54)
[2017-03-06] MEDS ORDERED: VITAMIN D1000 UNI1 PO (21:00)
[2017-03-06] MEDS ORDERED: NORVASC5 MG PO (22:17)
[2017-03-06] MEDS ORDERED: WELLBUTRIN 75 M75 M1 PO (22:17)
[2017-03-07 04:40] VITALS: BP 132/44
[2017-03-07 08:00] VITALS: BP 136/44
[2017-03-07 15:35] VITALS: BP 115/49
[2017-03-07 19:34] VITALS: BP 119/51
[2017-03-08 03:29] VITALS: BP 154/60
[2017-03-08 06:08] LABS: HEMOGLOBIN 7.3 gm/dL (12.0-15.0); MCH 25.4 pg (26.0-34.0); MCHC 30.2 g/dL (28.0-37.0); RBC 2.86 mil/uL (4.20-5.00)
[2017-03-08 06:25] LABS: ALBUMIN 2.4 g/dL (3.4-5.0); CALCIUM 7.7 mg/dL (8.5-10.1)
[2017-03-08 06:27] LABS: CREATININE 7.1 mg/dL (0.6-1.0)
[2017-03-08 06:32] LABS: POTASSIUM 6.2 mmol/L (3.5-5.1)
[2017-03-08 08:00] VITALS: BP 151/76
[2017-03-08 10:27] LABS: APTT 24.7 Seconds (24.5-32.8); FIBRINOGEN 261.4 mg/dL (210-360); INR 1.1; PROTIME 11.2 Seconds (9.3-11.4)
[2017-03-08 14:05] LABS: CLARITY TURBID; COLOR RED; MANUAL DIFF YES; TOTAL VOLUME 60 mL
[2017-03-08 14:25] LABS: BF NUCLEATED CELLS 803; BF RBC 58333
[2017-03-08 15:19] LABS: BF NEUTROPHILS 4
[2017-03-08 15:26] LABS: BF COMMENTS 10 MONOCYTE; BF MACROPHAGE 10
[2017-03-08 16:36] LABS: CHOLESTEROL 63 mg/dL (<200); HDL CHOLESTEROL 24 mg/dL (>40); LDL CHOLESTEROL 31 mg/dL (<100); TC:HDL 2.6 Ratio (Not establshd); TRIGLYCERIDE 43 mg/dL (<150); VLDL 9 mg/dL (<40)
[2017-03-08 20:04] VITALS: BP 147/56
[2017-03-09 03:13] VITALS: BP 148/48
[2017-03-09 11:30] VITALS: BP 135/47
[2017-03-09 13:09] LABS: BODY FLUID ALBUMIN 1.6 g/dL (()); BODY FLUID AMYLASE 71 U/L (()); BODY FLUID GLUCOSE 177 mg/dL (()); BODY FLUID LDH 207 IU/L (()); BODY FLUID PROTEIN 3.8 g/dL (())
[2017-03-09 16:00] VITALS: BP 142/47
[2017-03-09 20:40] VITALS: BP 153/68
[2017-03-10 03:41] LABS: RBC 2.5 mil/uL (4.20-5.00)
[2017-03-10 03:44] LABS: HEMATOCRIT 20.7 % (37.0-47.0); MCH 25.6 pg (26.0-34.0); MCHC 30.9 g/dL (28.0-37.0); MCV 82.9 fL (80.0-100.0); RDW 19.1 % (10.5-14.5); WBC 7.4 thou/uL (4.0-11.0)
[2017-03-10 03:46] LABS: HEMOGLOBIN 6.4 gm/dL (12.0-15.0)
[2017-03-10 03:56] LABS: ALBUMIN 2.4 g/dL (3.4-5.0); CALCIUM 7.6 mg/dL (8.5-10.1); PHOSPHORUS 4.7 mg/dL (2.5-4.9); POTASSIUM 5.3 mmol/L (3.5-5.1)
[2017-03-10 04:10] LABS: CREATININE 3.6 mg/dL (0.6-1.0)
[2017-03-10 07:39] VITALS: BP 151/52
[2017-03-10 08:00] VITALS: BP 151/52
[2017-03-10 12:00] VITALS: BP 142/48
[2017-03-10 17:23] VITALS: BP 151/54
[2017-03-10 20:07] VITALS: BP 133/45
[2017-03-11 01:31] VITALS: BP 141/54; BP 149/56
[2017-03-11 05:15] VITALS: BP 126/72
[2017-03-11 07:59] LABS: HEMATOCRIT 24.1 % (37.0-47.0); HEMOGLOBIN 7.5 gm/dL (12.0-15.0); MCH 25.7 pg (26.0-34.0); MCV 83.1 fL (80.0-100.0); RBC 2.9 mil/uL (4.20-5.00); RDW 18.6 % (10.5-14.5); WBC 8.7 thou/uL (4.0-11.0)
[2017-03-11 08:09] LABS: CALCIUM 6.4 mg/dL (8.5-10.1); MAGNESIUM 1.5 mg/dL (1.8-2.4); POTASSIUM 5.4 mmol/L (3.5-5.1)
[2017-03-11 08:13] LABS: CREATININE 5.5 mg/dL (0.6-1.0)
[2017-03-11 12:52] VITALS: BP 175/51
[2017-03-11 15:09] VITALS: BP 175/51
== END 2017-03-11 17:11 | disposition home health service (06) | DRG 64 ==
LOC: ER 15:40 → 4S 19:53 → EROBS 19:53 → 4S 20:15 → ENTRNSPT 03-11 16:18 → 4S 03-11 17:11
PROVIDERS: Emergency Medicine; Hospitalist; Internal Medicine; Internal Medicine Geriatric Medicine; Internal Medicine Nephrology; Psychiatry & Neurology Neurology
PROC: 0W993ZZ Drainage of Right Pleural Cavity, Percutaneous Approach (ICD-10-PCS; principal; 2017-03-08)
PROC: 5A1D70Z Performance of Urinary Filtration, Intermittent, Less than 6 Hours Per Day (ICD-10-PCS; 2017-03-08)
PROC: 5A1D70Z Performance of Urinary Filtration, Intermittent, Less than 6 Hours Per Day (ICD-10-PCS; 2017-03-09)
PROC: 30233N1 Transfusion of Nonautologous Red Blood Cells into Peripheral Vein, Percutaneous Approach (ICD-10-PCS; 2017-03-11)
PROC: 5A1D70Z Performance of Urinary Filtration, Intermittent, Less than 6 Hours Per Day (ICD-10-PCS; 2017-03-11)
DX: I63.9 Cerebral infarction, unspecified (principal); N18.6 End stage renal disease; K55.21 Angiodysplasia of colon with hemorrhage; E87.1 Hypo-osmolality and hyponatremia; I50.30 Unspecified diastolic (congestive) heart failure; J90 Pleural effusion, not elsewhere classified; R18.8 Other ascites; E11.22 Type 2 diabetes mellitus with diabetic chronic kidney disease; K74.60 Unspecified cirrhosis of liver; E11.42 Type 2 diabetes mellitus with diabetic polyneuropathy; R42 Dizziness and giddiness; I25.10 Atherosclerotic heart disease of native coronary artery without angina pectoris; D64.9 Anemia, unspecified; E03.9 Hypothyroidism, unspecified; J44.9 Chronic obstructive pulmonary disease, unspecified; B19.20 Unspecified viral hepatitis C without hepatic coma; H83.09 Labyrinthitis, unspecified ear; E87.5 Hyperkalemia; K21.9 Gastro-esophageal reflux disease without esophagitis; E78.5 Hyperlipidemia, unspecified; Z87.891 Personal history of nicotine dependence; Z90.710 Acquired absence of both cervix and uterus; Z86.718 Personal history of other venous thrombosis and embolism; Z95.5 Presence of coronary angioplasty implant and graft; Z79.899 Other long term (current) drug therapy; Z88.8 Allergy status to other drugs, medicaments and biological substances
CPT/HCPCS: 10195; 32100

== ENCOUNTER 2017-04-15 02:21 | Inpatient (IN) | payer OTHER ==
[2017-04-15] VITALS (22 sets, daily range): BP systolic 79–158; BP diastolic 35–124
[~2017-04-15] VITALS: Ht 165.1 cm; Wt 63.0 kg
--- NOTE | ~2017-04-15 | H ---
[facility] [place] [place] [address] HISTORY AND PHYSICAL Name: PERNELL PEREZ Room #: 250-P ADM IN M.R.#: [id number] Admission: 04/15/17 Attend Phys: Miquel Robins MD Discharge: Date of : 51 Report #: [id number] THIS REPORT FOR: //name// CC: Shen Robins DATE OF SERVICE: 04/15/2017 CHIEF COMPLAINT: Weakness. HISTORY OF PRESENT ILLNESS: The patient is a 61-year-old female with history of diabetes; end-stage renal disease, on hemodialysis; liver cirrhosis; history of CVA and history of GI bleed in the past. Presented to the Emergency Room for weakness. The patient has history of chronic vertigo. Apparently, she had dizziness and weakness the day before. She went to bed and she kind of slipped from bed last night. She called EMS. The patient had a heart rate of ____ and the blood pressure of 92/50. The patient was given atropine and IV fluids en route. On arrival to the emergency room, she had EKG done, which showed junctional bradycardia. She was also found to be significantly hyperkalemic with the potassium of 6.5. BUN and creatinine of 63 and 6.5. The patient gets dialyzed 3 times a week, Saturday, Saturday and Saturday and she did get dialyzed last Saturday for 4 hours. The patient was given calcium gluconate and albuterol. The patient started on dialysis. Her heart rate is up to 70. Her blood pressure has improved to 107/59. The patient denies any complaint other than neuropathy bothering her legs. PAST MEDICAL HISTORY: Significant for end-stage renal disease, on hemodialysis. History of CVA in February. The patient was not started on any anticoagulant because of history of GI bleed. The patient has a history of COPD, hepatitis C, hypothyroidism, peripheral neuropathy, complete heart block, CAD and DVT. 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 She also had an M2 capsule study in the past, which showed a single non-bleeding AVM in the second portion of duodenum, which was cauterized in the past. She has a history of chronic vertigo. History of left rotator cuff repair, hysterectomy, right knee surgery and iron-deficiency anemia. History of multiple left rib fractures she quoted in 04/29/2015. History of coronary artery disease, with stent in the past. History of fistula in the left upper extremity. Multiple thoracenteses. ALLERGIES: She has multiple allergies. Please look at the nursing documentation for allergy. She is allergic to ESTROGEN, METHOCARBAMOL and INSULIN. [address] [address] HISTORY AND PHYSICAL Name: PERNELL PEREZ Room #: 250-P [facility] [place] M.R.#: [id number] Admission: 04/15/17 Attend Phys: Miquel Robins MD Discharge: Date of : 51 Report #: [id number] HOME MEDICATIONS: Reviewed. Please look at the nursing documentation. SOCIAL HISTORY: She still smokes occasional cigarettes. No history of alcohol abuse or illicit drug abuse. The patient lives alone. She walks with the walker. FAMILY HISTORY: Noncontributory for this admission. REVIEW OF SYSTEMS: CONSTITUTIONAL: No fever or chills. No weight loss. No weight gain. EYES: No change in vision. THROAT: Denies any sore throat. CARDIOVASCULAR SYSTEM: Denies any shortness of breath or chest pain. Has had chronic dizziness. RESPIRATORY: No cough or expectoration. GASTROINTESTINAL: No nausea, vomiting or abdominal pain. GENITOURINARY: No dysuria or hematuria. NEUROLOGIC: Denies any focal numbness or weakness of the extremity. She has chronic right upper extremity difficulty secondary to neuropathy on right shoulder. The 12-point review of system is negative, other than the positive and negative dictated in the history of present illness and the review of system. PHYSICAL EXAMINATION: VITAL SIGNS: Revealed blood pressure 107/59, heart rate of 70 per minute and afebrile. GENERAL: The patient is awake and alert, not in acute respiratory distress. EYES: Pupils equal and reactive to light. THROAT: She has a dry oral mucosa. NECK: Supple. No JVD, no bruit, no lymphadenopathy. CARDIOVASCULAR SYSTEM: S1, S2. Negative S3. Soft systolic murmur in the left sternal border. CHEST: Bilateral air entry present. Clear on auscultation. ABDOMEN: Soft. Bowel sounds present. No mass, no organomegaly, no tenderness. PERIPHERY: No pedal edema. No calf tenderness. Dorsalis pedis 1+. NEUROLOGIC: The patient is able to move all 4 extremities. Power is 5/5 in the lower extremity and 4/5 in the upper extremity. LABORATORIES: Reviewed. Her hemoglobin is 7.1 this morning, white count is 8.4 and platelet is 166. Chemistry showed potassium of 6.5 initially. Sodium is 130. BUN and creatinine of 63 and 6.5. Magnesium is 2.1. Chest x-ray showed small right pleural effusion with right basilar atelectasis. Stable cardiomegaly with generalized interstitial prominence. EKG reported as junctional rhythm, anterior infarct. [address] [address] HISTORY AND PHYSICAL Name: PERNELL PEREZ Room #: 250-P ADM IN [facility].#: [id number] Admission: 04/15/17 Attend Phys: Miquel Robins MD Discharge: Date of : 51 Report #: [id number] ASSESSMENT: 1. Junctional rhythm, most likely secondary to hyperkalemia. The patient has been evaluated by manager skilled and has been started on dialysis. We will repeat the potassium at 1:00 p.m. We will check TSH level. The patient did have an echocardiogram done last month, which showed normal ejection fraction and pulmonary hypertension. We will also consult Cardiology and monitor closely on telemetry. 2. History of hypertension. Presently blood pressure is on the low end, and we will hold antihypertensive medication and monitor. 3. Diabetes. The patient is on Victoza, which will be continued. The patient is allergic to HUMALOG. 4. Deep venous thrombosis prophylaxis. She will be on sequential compression device on the leg for deep venous thrombosis prophylaxis. 5. Anemia, chronic illness secondary to end-stage renal disease. The patient also has a history of gastrointestinal bleed in the past secondary to arteriovenous malformation in the duodenum. We will check stool for occult blood. We will repeat hemoglobin at 1:00 p.m. She will be continued on p.o. Protonix. 6. History of recent cerebrovascular accident in 02/2017. The patient is not on any anticoagulation because of the gastrointestinal bleed. 7. History of hepatitis C. 8. History of recurrent pleural effusion and recurrent thoracenteses in the past. Treatment plan has been explained to the patient in detail. <ELECTRONICALLY SIGNED> By: Miquel Robins MD 04/15/17 1427 0748 0900 Miquel Robins MD /nt
--- NOTE | ~2017-04-15 | HC ---
[facility] [address] [place] [address] CONSULTATION Name: PERNELL PEREZ Room #: 213-P [facility] IN M.R.#: [id number] Admission: 04/15/17 Attend Phys: Miquel Robins MD Discharge: 04/17/17 Date of : 51 Report #: [id number] THIS REPORT FOR: //name// CC: Lucho Rehman Marie Elbert Robins REASON FOR CONSULTATION: End-stage renal disease and critical hyperkalemia. HISTORY OF PRESENT ILLNESS: The patient followed in our Dialysis Clinic on 3 times weekly dialysis, became weak and dizzy, rolled out of bed and could not get up, was very weak, and was eventually retrieved by emergency medical personnel, found to have slow pulse and low blood pressure, brought to the emergency room. In the emergency room, she was found to have potassium of 6.5 and a slow junctional rhythm. Blood pressure 70/40. She was treated emergently for hyperkalemia with some improvement in her heart rhythm, potassium dropped from 6.5 to 6.2, she was seen in the ICU this morning for emergency hemodialysis. PAST MEDICAL HISTORY: The patient is well known to our service, has been on dialysis for a couple of years. She has end-stage renal disease and history of diabetes and dialyzes 3 times weekly. She has coronary artery disease, previous coronary stents, and has had at least 2 previous cardiorespiratory arrest requiring resuscitation. She has COPD, she has been a longtime smoker and continues to smoke at least a little bit. She has a history of cirrhosis from hepatitis C. She has recurrent right pleural effusions, has required repeat and recurrent right-sided thoracentesis of large volume intermittently. She has bleeding arteriovenous malformations with chronic anemia and requires octreotide treatments at home for that. She has peripheral neuropathy, previous hysterectomy as well as rotator cuff surgery. REVIEW OF SYSTEMS: GENERAL: She has been a little bit weak, but doing reasonably well, getting along at home without her home oxygen. EYES: Her vision is reasonably good. ENT: Hearing okay. Denies mouth ulcers. ENDOCRINE: Positive for the diabetes. RESPIRATORY: Somewhat easily short-winded, but relatively stable at the current time without hemoptysis. She does have a bit of a chronic cough. CARDIAC: No recent chest pains. History of coronary stents as mentioned. GASTROINTESTINAL: Appetite is fair. Eating okay. GENITOURINARY: Makes very little if any urine. NEUROLOGIC: Some peripheral neuropathy and some restless legs. PSYCHIATRIC: Currently without depression or anxiety. MUSCULOSKELETAL: No arthritis. SOCIAL HISTORY: Long time smoker, continues to smoke a little bit, not a lot. [facility] [address] [place] [address] CONSULTATION Name: PERNELL PEREZ Room #: 213-P [facility] IN M.R.#: [id number] Admission: 04/15/17 Attend Phys: Miquel Robins MD Discharge: 04/17/17 Date of : 51 Report #: [id number] No substantial alcohol. MEDICATIONS: Current medications are little unclear. She is on Lyrica, octreotide, Renvela, and Nephrocaps and does not take anything for her diabetes. PHYSICAL EXAMINATION: GENERAL: This is a chronically ill-appearing patient, looking substantially older than her stated age. SKIN: Unremarkable. SKELETAL: She apparently has a bedsore in her coccyx area, which currently is unable to be examined. HEENT: Extraocular movements are full. Vision intact. No scleral icterus. Hearing intact. Mucous membranes dry. NECK: Supple. No carotid bruits. CHEST: Shows diminished breath sounds in the right lower lung. HEART: Currently somewhat irregular. ABDOMEN: Soft and nontender without bruits, masses or organomegaly. EXTREMITIES: Show no peripheral edema. Left upper arm fistula intact and functioning nicely. NEUROLOGIC: Just shows some generalized weakness. LABORATORY DATA: Hemoglobin 7.1, platelets 166. Sodium 130, potassium 6.5, chloride 96, bicarbonate 24, potassium dropping to 6.2 with acute treatment in the emergency room. EKG reviewed, initially showed a slow junctional rhythm, now somewhat irregular, but sinus rhythm. Portable chest x-ray personally reviewed shows a small right pleural effusion. ASSESSMENT: 1. End-stage renal disease. She will get emergency dialysis. She has critical hyperkalemia. She had junctional rhythm, which has responded to initial treatment. She will dialyze on a 2 potassium bath. 2. Congestive heart failure. She does have a known decreased ejection fraction. She is a bit fluid overloaded. Now, she will have ultrafiltration with dialysis. 3. Critical hyperkalemia treated with emergency dialysis, seen in ICU, on treatment. 4. Recurrent right pleural effusion. This is under reasonable control. 5. Chronic anemia with bleeding arteriovenous malformations, remains on octreotide. She gets iron and Aranesp in the Dialysis Unit. 6. Restless legs. She will probably need some Requip. I do not know if she has been on that at home. We will have to investigate. [facility] [address] [place] [address] CONSULTATION Name: PERNELL PEREZ Room #: 213-P DIS IN .R.#: [id number] Admission: 04/15/17 Attend Phys: Miquel Robins MD Discharge: 04/17/17 Date of : 51 Report #: [id number] 7. History of hepatitis C with cirrhosis. 8. Chronic obstructive pulmonary disease with continued cigarette smoking. <ELECTRONICALLY SIGNED> By: Lucho Rehman MD 04/19/17 1128 0627 0944 Lucho Rehman MD /nt
--- NOTE | ~2017-04-15 | EKG ---
[place] [address] [address] [employer] [place] [place] [address] ELECTROCARDIOGRAM REPORT Name: PERNELL PEREZ Room #: 250-P ADM IN M.R.#: [id number] Admission: 04/15/17 Attend Phys: Miquel Robins MD Discharge: Date of : 51 Report #: [id number] THIS REPORT FOR: //name// 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: MZOOK : 1955 Requested By: Magdalena Real Order Number: [id number] MD: Stephon Miranda Measurements Intervals [place] Rate: 45 P: [place]: QRS: 36 QRSD: 85 T: 25 QT: 493 QTc: 427 Interpretive Statements Junctional rhythm Anterior infarct, old Compared to ECG 03/06/2017 16:09:39 Junctional rhythm now present Electronically Signed On 04-15-2017 8:09:59 CHILD [employer]ARE [employer]OOK by Stephon Miranda [email or web address] <ELECTRONICALLY SIGNED> By: Stephon Miranda MD, [facility] 04/15/17808 5 5 Stephon Miranda MD, [facility] /EPI
--- NOTE | ~2017-04-15 | EKG ---
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 OSHEA : 1955 Requested By: Rocio Monge Order Number: [id number] MD: Saul Johnson Measurements Intervals [place] Rate: 66 P: 36 [place]: 159 QRS: 36 QRSD: 92 T: 38 QT: 421 QTc: 442 Interpretive Statements Sinus rhythm Minimal ST elevation, anterior leads Compared to ECG 04/15/2017 02:26:42 ST (T wave) deviation now present Junctional rhythm no longer present Myocardial infarct finding no longer present Electronically Signed On 04-15-2017 23:27:[address] [employer]IO INSTALLER by Saul Johnson [email or web address] <ELECTRONICALLY SIGNED> By: Saul Johnson MD 04/15/17 2327 1724 1724 Saul Johnson MD /EPI
[~2017-04-15 02:21] MED LIST changes: +LYRICA 75 MG CA75 MG PO; +NORVASC5 MG PO; +VITAMIN D1000 UNI1 PO; +WELLBUTRIN 75 M75 M1 PO
[2017-04-15 02:39] LABS: CREATININE 6.5 mg/dL (0.6-1.0); MAGNESIUM 2.1 mg/dL (1.8-2.4)
[2017-04-15 02:40] LABS: HEMATOCRIT 22.4 % (37.0-47.0); HEMOGLOBIN 7.1 gm/dL (12.0-15.0); MCH 27.6 pg (26.0-34.0); MCHC 31.8 g/dL (28.0-37.0); MCV 86.9 fL (80.0-100.0); PLATELET COUNT 166 thou/uL (150-400); RBC 2.58 mil/uL (4.20-5.00); RDW 18.9 % (10.5-14.5); WBC 8.4 thou/uL (4.0-11.0)
[2017-04-15 02:42] LABS: POTASSIUM 6.5 mmol/L (3.5-5.1)
[2017-04-15 03:14] LABS: ABSOLUTE NEUTROPHILS 4.2 thou/uL (1.4-8.2); ANISOCYTOSIS 2+; HYPOCHROMASIA 1+; POLYCHROMASIA OCCASIONAL
[2017-04-15 15:09] LABS: HEP B SURFACE Ab(ANTI-HBS Reactive (()); HEPATITIS B SURFACE AG Negative (Negative)
[2017-04-16] VITALS (13 sets, daily range): BP systolic 117–158; BP diastolic 39–64
[2017-04-16 04:41] LABS: HEMATOCRIT 22.2 % (37.0-47.0); MCH 27.9 pg (26.0-34.0); MCHC 31.4 g/dL (28.0-37.0); MCV 88.7 fL (80.0-100.0); PLATELET COUNT 155 thou/uL (150-400); RDW 18.6 % (10.5-14.5); WBC 5.6 thou/uL (4.0-11.0)
[2017-04-16 04:53] LABS: ALBUMIN 2.5 g/dL (3.4-5.0); CALCIUM 7.7 mg/dL (8.5-10.1); MAGNESIUM 1.9 mg/dL (1.8-2.4); PHOSPHORUS 4.8 mg/dL (2.5-4.9)
[2017-04-16 05:02] LABS: POTASSIUM 4.8 mmol/L (3.5-5.1)
[2017-04-16 05:23] LABS: ABSOLUTE NEUTROPHILS 2.7 thou/uL (1.4-8.2)
[2017-04-16 05:24] LABS: ANISOCYTOSIS 2+
[2017-04-17 03:34] LABS: MCH 27.7 pg (26.0-34.0); MCV 86.7 fL (80.0-100.0); PLATELET COUNT 144 thou/uL (150-400); RBC 2.54 mil/uL (4.20-5.00); RDW 18.1 % (10.5-14.5); WBC 7.3 thou/uL (4.0-11.0)
[2017-04-17 03:49] LABS: CALCIUM 7.4 mg/dL (8.5-10.1); POTASSIUM 5.5 mmol/L (3.5-5.1)
[2017-04-17 03:53] LABS: CREATININE 5.8 mg/dL (0.6-1.0)
[2017-04-17 05:13] VITALS: BP 104/44
[2017-04-17 06:33] LABS: ABSOLUTE NEUTROPHILS 4.1 thou/uL (1.4-8.2); ANISOCYTOSIS 2+; HYPOCHROMASIA SLIGHT
[2017-04-17 06:34] LABS: POLYCHROMASIA OCCASIONAL
[2017-04-17 07:42] VITALS: BP 126/43
[2017-04-17 10:54] VITALS: BP 128/58
[2017-04-17 12:09] VITALS: BP 128/58
[2017-04-17 16:00] VITALS: BP 128/58
== END 2017-04-17 18:10 | disposition home health service (06) | DRG 308 ==
LOC: ER 02:21 → EROBS 03:31 → ICU 03:31 → 2N 04-16 17:51 → ENTRNSPT 04-17 17:00 → 2N 04-17 18:10
PROVIDERS: Emergency Medicine; Family Medicine; Internal Medicine; Internal Medicine Nephrology
PROC: 5A1D70Z Performance of Urinary Filtration, Intermittent, Less than 6 Hours Per Day (ICD-10-PCS; principal; 2017-04-17)
DX: R00.1 Bradycardia, unspecified (principal); N18.6 End stage renal disease; E43 Unspecified severe protein-calorie malnutrition; K55.21 Angiodysplasia of colon with hemorrhage; I50.30 Unspecified diastolic (congestive) heart failure; J90 Pleural effusion, not elsewhere classified; I13.2 Hypertensive heart and chronic kidney disease with heart failure and with stage 5 chronic kidney disease, or end stage renal disease; E87.5 Hyperkalemia; E11.22 Type 2 diabetes mellitus with diabetic chronic kidney disease; K74.60 Unspecified cirrhosis of liver; E03.9 Hypothyroidism, unspecified; J44.9 Chronic obstructive pulmonary disease, unspecified; E11.40 Type 2 diabetes mellitus with diabetic neuropathy, unspecified; I25.10 Atherosclerotic heart disease of native coronary artery without angina pectoris; I95.9 Hypotension, unspecified; G25.81 Restless legs syndrome; D64.9 Anemia, unspecified; E78.00 Pure hypercholesterolemia, unspecified; E78.5 Hyperlipidemia, unspecified; I27.20 Pulmonary hypertension, unspecified; I34.0 Nonrheumatic mitral (valve) insufficiency; I36.1 Nonrheumatic tricuspid (valve) insufficiency; Z86.19 Personal history of other infectious and parasitic diseases; Z87.891 Personal history of nicotine dependence; Z88.8 Allergy status to other drugs, medicaments and biological substances; Z79.899 Other long term (current) drug therapy; Z98.61 Coronary angioplasty status; Z86.718 Personal history of other venous thrombosis and embolism; Z90.710 Acquired absence of both cervix and uterus; Z86.73 Personal history of transient ischemic attack (TIA), and cerebral infarction without residual deficits; Z99.2 Dependence on renal dialysis; Z68.23 Body mass index [BMI] 23.0-23.9, adult
CPT/HCPCS: 10078; 10081; 32100

== ENCOUNTER → 2017-05-02 | Outpatient (CLI) | payer OTHER ==
[~2017-05-02] MED LIST changes: +ARTIFICIAL TEA1 EACH INTRAOCULR; +LEVAQUIN 500 M500 M2 PO; +LOPERAMIDE 2 MG2 M1 PO; +NEPHROCAPS SOFT1 CAP PO; +NYAMYC15 GM TOP; +OCTREOTIDE50 MCG/1 M SUBQ; +PAXIL10 MG PO; +PREDNISONE 5 MG5 M1 PO; +REMERON 30 MG T30 M1 PO; +REQUIP0.5 MG PO; +VICTOZA0.6 MG/0.1 SUBQ; +ZOFRAN ODT4 MG PO
== END ==
LOC: RAD 09:43
DX: J44.9 Chronic obstructive pulmonary disease, unspecified (principal)

== ENCOUNTER → 2017-07-25 | Outpatient (CLI) | payer OTHER ==
[~2017-07-25] MED LIST changes: -ARTIFICIAL TEA1 EACH INTRAOCULR; -LEVAQUIN 500 M500 M2 PO; -LOPERAMIDE 2 MG2 M1 PO; -NEPHROCAPS SOFT1 CAP PO; -NYAMYC15 GM TOP; -OCTREOTIDE50 MCG/1 M SUBQ; -PAXIL10 MG PO; -PREDNISONE 5 MG5 M1 PO; -REMERON 30 MG T30 M1 PO; -REQUIP0.5 MG PO; -VICTOZA0.6 MG/0.1 SUBQ; -ZOFRAN ODT4 MG PO
== END ==
LOC: RAD 12:59
DX: J98.11 Atelectasis (principal); J90 Pleural effusion, not elsewhere classified; Z88.8 Allergy status to other drugs, medicaments and biological substances; Z88.5 Allergy status to narcotic agent; Z88.6 Allergy status to analgesic agent

== ENCOUNTER → 2017-08-06 | Outpatient (CLI) | payer OTHER | LOC: RAD 15:28 | DX: J90 Pleural effusion, not elsewhere classified (principal); J44.9 Chronic obstructive pulmonary disease, unspecified ==

== ENCOUNTER → 2017-09-03 | Outpatient (CLI) | payer OTHER ==
[2017-09-03 15:37] LABS: ALBUMIN 2.8 g/dL (3.4-5.0); CALCIUM 7.7 mg/dL (8.5-10.1); CREATININE 5.1 mg/dL (0.6-1.0); INR 1.2; POTASSIUM 5.6 mmol/L (3.5-5.1); PROTIME 11.8 Seconds (9.3-11.4); TOTAL BILIRUBIN 0.5 mg/dL (<0.1-1.0); TOTAL PROTEIN 8.4 g/dL (6.4-8.2)
[2017-09-03 15:44] LABS: HEMATOCRIT 29.6 % (37.0-47.0); HEMOGLOBIN 9.5 gm/dL (12.0-15.0); MCH 27.7 pg (26.0-34.0); MCHC 32.2 g/dL (28.0-37.0); RBC 3.44 mil/uL (4.20-5.00); RDW 18.5 % (10.5-14.5)
[2017-09-03 16:56] LABS: CLARITY TURBID; COLOR RED; SOURCE RT CHEST; TOTAL VOLUME 55 mL
[2017-09-03 17:07] LABS: BF NUCLEATED CELLS 608; BF RBC 83366
[2017-09-03 18:28] LABS: BF MACROPHAGE 9; BF NEUTROPHILS 12
[2017-09-03 20:45] LABS: SOURCE THORACENTESIS
[2017-09-04 11:09] LABS: BODY FLUID ALBUMIN 1.6 g/dL (()); BODY FLUID AMYLASE 59 U/L (()); BODY FLUID GLUCOSE 117 mg/dL (()); BODY FLUID LDH 142 IU/L (()); BODY FLUID PROTEIN 3.7 g/dL (())
== END | disposition home or self-care (01) ==
LOC: ULTRA 14:15
PROVIDERS: Internal Medicine Pulmonary Disease
DX: J90 Pleural effusion, not elsewhere classified (principal); R06.02 Shortness of breath

== ENCOUNTER → 2017-09-26 | Outpatient (CLI) | payer OTHER | LOC: RAD 14:11 | DX: J90 Pleural effusion, not elsewhere classified (principal); J98.4 Other disorders of lung; J98.11 Atelectasis ==

== ENCOUNTER 2017-10-04 15:55 | Inpatient (IN) | payer OTHER ==
[2017-10-04] VITALS (19 sets, daily range): BP systolic 77–123; BP diastolic 35–94
[~2017-10-04] VITALS: Ht 157.5 cm; Wt 58.5 kg
--- NOTE | ~2017-10-04 | PATH ---
[facility] [address] [place] [address] PATHOLOGY RPT PROCEDURE Name: PERNELL PEREZ Room #: 207-P ADM IN M.R.#: [id number] Admission: 10/04/17 Date of : 51 Discharge: Report #: [id number] Path Case #: [id number] Note [facility] Accession Number: [id number] TESTS RESULT FLAG UNITS REF RANGE LAB Clinician Provided Cytology Information No. of containers..01 Other (Miscellaneous) Source: BAL RLL DIAGNOSIS: BAL RLL NEGATIVE FOR MALIGNANT CELLS. NORMAL BRONCHIAL CELLS AND MACROPHAGES ARE PRESENT. FUNGAL ORGANISMS MORPHOLOGICALLY CONSISTENT WITH "TWILA" SPECIES ARE PRESENT. REACTIVE SQUAMOUS CELLS ARE PRESENT. Signed out by: 02 Melo Gotti MD, Pathologist NPI- [id number] Performed by: 03 Dorota Olivier, Product Support Engineer ([facility]) Gross description: 01 15ML, RED, CLOUDY /LCS FLAG LEGEND: L-Low Normal,H-High Normal,LL-Alert Low,HH-Alert High <-Panic Low,>-Panic High,A-Abnormal,AA-Critical Abnormal Performed at: [address] [place] [address] Brenden Infante MD, [address] [address] Lisset Cook MD, 03 [facility] [address] [address] Randy Parish MD, Performed at: [address], [place], [place] [id number] MD Brenden Infante MD Phone: [phone]
--- NOTE | ~2017-10-04 | PATH ---
[address] [place] [address] PATHOLOGY RPT PROCEDURE Name: PERNELL PEREZ Room #: 207-P ADM IN M.R.#: [id number] Admission: 10/04/17 Date of : 51 Discharge: Report #: [id number] Path Case #: [id number] [facility] Accession Number: [id number] . 01 Material submitted: . BIOPSY, RLL . 01 Clinical history: . Severe sepsis, hypoxia, fever, leukocytosis, pleural effusion . 02 Diagnosis: Lung biopsy "RLL biopsy": - Fragments of lung biopsy revealing focal recent hemorrhage with hemosiderin-laden macrophages. - There are also acute and chronic inflammatory cells mixed with eosinophils. - There is no evidence of malignancy. . (SHA:mmprashant; 10/10/2017) QLM/10/10/2017 . 02 Electronically signed: . Melo Gotti MD, Pathologist NPI- [id number] . 01 Gross description: . The specimen is received in formalin, labeled" Pernell Perez and RLL biopsy forceps", are several laguerre fragments of laguerre to dark brown hemorrhagic soft tissue the aggregate measure 0.3 x 0.1 x 0.1 cm, entirely submitted in A1. . (SWS; 10/08/2017) SHS/SHS . 02 Pathologist provided ICD-10: J98.4 . 02 CPT . 809071 Performed at: [address] [id number] MD Brenden Infante MD Phone: [phone] Performed at: [address] [id number] MD Lisset Cook MD Phone: [phone]
--- NOTE | ~2017-10-04 | HC ---
[facility] [address] [place] [place] [address] CONSULTATION Name: PERNELL PEREZ Room #: 207-P ADM IN M.R.#: [id number] Admission: 10/04/17 Attend Phys: Teri Gordon Discharge: Date of : 51 Report #: [id number] THIS REPORT FOR: //name// CC: Teri Boswell REASON FOR PRESENTATION: Weakness, not feeling well. REASON FOR CONSULTATION: End-stage renal disease. HISTORY OF PRESENT ILLNESS: This is a very well known patient to me. She has end-stage renal disease, maintained on dialysis every Saturday, Saturday and Saturday. I have seen her in the dialysis unit where she had red eye, and she was seen by an tank truck driver. She has not been eating. She has not been drinking. She was also having some discharge, greenish in color, from her left eye. She has chronic COPD, cirrhosis, AV malformations with recurrent GI bleeding. She came under her dry body weight yesterday and was not feeling well. She received full dialysis. She denies fever or chills. She did have some shortness of breath. She has significant weight loss in the last couple of days because of her loss of appetite. She was found with what was described to be a small loculated pleural effusion with right bibasilar infiltrate. She is admitted for further evaluation and management. I am being consulted to manage her end-stage renal disease. PAST MEDICAL HISTORY: 1. End-stage renal disease. 2. Hep C. 3. Recurrent pleural effusion. 4. Dialysis dependent every Saturday, Saturday and Saturday. 5. Recurrent ascites. 6. Recurrent GI bleeding. 7. History of varices. 8. Remote history of tracheostomy. 9. Carotid artery disease. 10. DVT. 11. Status post arrest. 12. Diabetes mellitus. 13. CVAs in the past. 14. Hypothyroidism. 15. CHF. FAMILY HISTORY: Significant for diabetes mellitus and hypertension. SOCIAL HISTORY: No drug or alcohol abuse. She lives with her sister. MEDICATIONS: 1. Amlodipine. [facility] [address] [place] [address] CONSULTATION Name: PERNELL PEREZ Room #: 207-P [facility] IN M.R.#: [id number] Admission: 10/04/17 Attend Phys: Teri Gordon Discharge: Date of : 51 Report #: [id number] 2. Atorvastatin. 3. Pantoprazole. 4. Octreotide. 5. Lyrica. 6. Clarinex. REVIEW OF SYSTEMS: GENERAL: Significant for weakness and dizziness. CARDIOVASCULAR: Shortness of breath. PULMONARY: No cough or hemoptysis, but significant for shortness of breath. GASTROINTESTINAL: No hematemesis, no melena. GENITOURINARY: No frequency, no urgency. NEUROLOGIC: As per the history of present illness. EYES: She did have a red left eye. PHYSICAL EXAMINATION: GENERAL: She is alert, oriented, in no apparent distress. VITAL SIGNS: Pulse rate 76, temperature is mildly elevated at 38.7, blood pressure is 104/45. She was hypoxic when she presented to the Emergency Room yesterday; however, her oxygen has picked up. HEAD AND NECK: Red left eye. CHEST: Decreased air entry bilaterally. CARDIOVASCULAR: Regular, with no rub. ABDOMEN: Slightly distended. Nontender. No hepatosplenomegaly. LOWER EXTREMITIES: No edema. LABORATORY DATA: Reviewed. Hemoglobin stable at 9.8. Sodium 135, Elevated liver enzymes. BNP was elevated. CT was reviewed. Chest x-ray with no significant changes. ASSESSMENT, IMPRESSION AND PLAN: 1. End-stage renal disease, maintained on dialysis. 2. Fever up to 38.7 today. Not feeling well, weakness of unclear sources so far. 3. Repeated pleural effusion, thoracentesis in the past. 4. Repeated abdominal paracentesis for recurrent ascites. 5. Recurrent gastrointestinal bleeding with arteriovenous malformations, maintained on octreotide. 6. Diabetes mellitus. 7. Hypertension. 8. The patient was admitted to the Intensive Care Unit because of hypoxia. Fever workup has been initiated. 9. She is maintained on appropriate antibiotic. 10. Dialysis every Saturday, Saturday and Saturday. 11. ID consultation. 12. Keep on octreotide. [address] [address] CONSULTATION Name: PERNELL PEREZ Room #: 207-P [facility] IN M.R.#: [id number] Admission: 10/04/17 Attend Phys: Teri Gordon Discharge: Date of : 51 Report #: [id number] 13. Resume her outpatient medications. 14. Blood sugar control. 15. Blood pressure seems to be on the low side. We will monitor for now and avoid aggressive ultrafiltration with her dialysis. She received some fluid in the Emergency Room, and her blood pressure seems to have stabilized. We will continue to follow along. <ELECTRONICALLY SIGNED> By: Shen Torres MD 10/07/17 0945 0806 1145 Shen Torres MD /nt
--- NOTE | ~2017-10-04 | P ---
[facility] [place] [place] [address] PROCEDURE REPORT Name: PERNELL PEREZ Room #: 207-P [facility] IN M.R.#: [id number] Admission: 10/04/17 Attend Phys: Teri Gordon Discharge: 10/11/17 Date of : 51 Report #: [id number] THIS REPORT FOR: //name// CC: Teri Salazar Elbert DATE OF SERVICE: 10/08/2017 PROCEDURE: Fiberoptic bronchoscopy with transbronchial biopsies under fluoroscopic guidance in the right lower lobe with 2.1 minutes of fluoroscopy time as well as microscopic protected specimen brush of the right lower lobe, purulent secretions as well as bronchoalveolar lavage sent for microbiologic and cytology. INDICATION: Persistent infiltrate and pleural effusion. ASA classification class 3. PROCEDURE NOTATION: After discussing risks and benefits of planned procedure with the patient, she desired to proceed. After obtaining informed consent, she was brought to [facility]. She was placed on continuous cardiopulmonary monitoring and supplemental oxygen. She was then given 2% lidocaine nebulized to anesthetize the upper respiratory tract. Once accomplished, she received conscious sedation. Due the patient's somnolent nature, only 1 mg Versed was utilized to provide adequate sedation. Bronchoscope was then passed through an oral biteblock until the vocal cords were visualized. Vocal cords moved appropriately before and after procedure. 1% lidocaine was instilled in the vocal cords to provide topical anesthesia. Bronchoscope was then passed into the trachea. 1% lidocaine was instilled in the tracheobronchial tree bilaterally for topical anesthesia. Once complete, airways were surveyed. FINDINGS: Mainstem, lobar, segmental and subsegmental bronchi were all explored and appeared patent with no significant anatomic variation. There were some purulent secretions coming predominantly from right lower lobe. A protected specimen brush was obtained for quantitative cultures. Several transbronchial biopsies were then obtained in the right lower lobe with fluoroscopic guidance. Bronchoalveolar lavage was performed in the right lower lobe and sent for microbiologic and cytologic tests. The patient did have some hypoxemia associated with sedation in supine posturing, which did require high flow oxygen without any significant sequelae. IMPRESSION: Persistent infiltrate and pleural effusion with purulent secretions, status post bronchoscopy with sample collection as identified above. PLAN: Await microbiologic and pathologic tests. Consider obtaining a followup [address] [address] PROCEDURE REPORT Name: PERNELL PEREZ Room #: 207-P [facility] IN ..#: [id number] Admission: 10/04/17 Attend Phys: Teri Gordon Discharge: 10/11/17 Date of : 51 Report #: [id number] arterial blood gas. Speech therapy evaluation for possible chronic aspiration causing persistent infiltrate. <ELECTRONICALLY SIGNED> By: Fady Corbin MD 10/14/17 1121 1018 1406 Fady Corbin MD /nt
--- NOTE | ~2017-10-04 | HC ---
[facility] [address] [place] [address] CONSULTATION Name: PERNELL PEREZ Room #: 241-P ADM IN M.R.#: [id number] Admission: 10/04/17 Attend Phys: Teri Gordon Discharge: Date of : 51 Report #: [id number] THIS REPORT FOR: //name// CC: Teri Boswell REASON FOR CONSULTATION: I was asked to evaluate concerning pneumonia and sepsis. HISTORY OF PRESENT ILLNESS: The patient is a 61-year-old with underlying history of COPD and end-stage renal disease along with hepatitis C. Sees Dr. Corbin in the pulmonary clinic on a regular basis. She noticed that 3 days ago developed a cough, associated with low-grade fever. She developed conjunctival hemorrhage to her left eye, saw Ophthalmology who diagnosed ruptured vessel and dry eyes. Subsequently, became more short of breath with fever up to 102 degrees. Hospitalized, dehydrated and dyspneic. She has had yellow-brown sputum production without hemoptysis. No pleuritic chest pain. No travel. Has history of cirrhosis with hepatitis C. No tuberculosis exposure or history. She is an active smoker. PAST MEDICAL HISTORY: Coronary artery disease, congestive heart failure, diabetes, end-stage kidney disease, left upper extremity AV fistula, cirrhosis with hepatitis C, previous stroke, hypothyroidism, COPD, DVT, left rotator cuff repair, peripheral neuropathy, hysterectomy, right knee surgery, iron deficiency anemia, complete heart block, recurrent pleural effusion on the right. ALLERGIES: ESTROGEN, HUMALOG INSULIN, ROBAXIN. MEDICATIONS: Included Remeron, Norvasc, Wellbutrin, Lipitor, Protonix, metolazone, Benadryl, Renvela, Clarinex, Lyrica. Started on vancomycin, Zosyn and Levaquin last evening. FAMILY HISTORY: Noncontributory. SOCIAL HISTORY: Smoker of cigarettes. No significant alcohol intake. REVIEW OF SYSTEMS: She denies any nausea, vomiting or diarrhea. She has had no reflux symptoms. Minimal urine output, has multiple tattoos. Eyes feel dry and pruritic. No sinus congestion or discharge. PHYSICAL EXAMINATION: VITAL SIGNS: Temperature is 101.7, hemodynamically stable. Last blood pressure was 104/45, with a MAP of 62. Pulse was 76. On 4 liters of oxygen per nasal cannula. SKIN: Unremarkable other than multiple tattoos. LYMPH: Unremarkable. EYES: Conjunctival hemorrhage on the left with some bruising inferior orbit. [facility] [address] [place] [address] CONSULTATION Name: PERNELL PEREZ Room #: 241-P [facility] IN M.R.#: [id number] Admission: 10/04/17 Attend Phys: Teri Gordon Discharge: Date of : 51 Report #: [id number] HEENT: Otherwise, unremarkable. NECK: Supple. LUNGS: Coarse posteriorly, mostly in the mid chest and bases. No consolidation. No rub. CARDIOVASCULAR: Heart was regular, without murmur, gallop or rub. ABDOMEN: Protuberant, had some ascites. No appreciable masses. EXTREMITIES: Unremarkable. NEUROLOGIC: Normal. LABORATORY STUDIES: Chest x-ray, right lower lobe infiltrates, small right pleural effusion, patchy left lower lobe atelectasis, pneumonitis. CT scan of the chest and abdomen showed volume loss in the right chest, infiltrate in the right lower lobe, right middle lobe with air bronchograms compatible with pneumonia. Atelectasis also considered. Also infiltrate in the anterior right upper lobe. Mild shift of mediastinum to the right, mild left axillary adenopathy. Mild mediastinal adenopathy. Mild subpleural infiltrate in left lower lobe. Small amount of ascites. Moderate ileus. In comparison to her previous CT scan 08/22/2017, it is reported not much change. Hemoglobin 10.4, WBC 12.4, platelet count 256,000, 3% bands, rare schistocyte and target cell. Procalcitonin 2.1. Sodium 135, potassium 4.5, bicarbonate 29, creatinine 3.8, alkaline phosphatase 319, AST 93, ALT 26. Blood and sputum cultures pending. Cultures from 08/24, right pleural fluid, negative for bacteria and so far negative AFB, fungus. IMPRESSION: A 61-year-old with chronic obstructive pulmonary disease, chronic pulmonary infiltrates in a smoker with recurring pleural effusion on the right, now with acute exacerbation consistent with pneumonia associated with fever, purulent sputum, leukocytosis and hypoxia. With this, she has sepsis, now improved. Etiology of her pneumonia is yet to be determined. I am awaiting culture results. We will plan to continue broad antibiotic coverage pending cultures. We will do screening for viral respiratory panel, conjunctival culture for bacteria, MRSA screen, serial chest x-rays. If no improvement, we will need to consider bronchoscopy. We will also screen HIV and immunoglobulins. <ELECTRONICALLY SIGNED> By: Yong Urrutia MD 10/06/17 0910 0941 1548 Yong Urrutia MD /nt
--- NOTE | ~2017-10-04 | EKG ---
[place] [address] [facility] [place] [address] ELECTROCARDIOGRAM REPORT Name: PERNELL PEREZ Room #: 207-P ADM IN M.R.#: [id number] Admission: 10/04/17 Attend Phys: Teri Gordon Discharge: Date of : 51 Report #: [id number] THIS REPORT FOR: //name// [facility] ED Test Date: 2017-10-04 Test Time: 16:11:07 Pat Name: PERNELL PEREZ Department: Room: Gender: F Assignment Agent: AGUSTO : 1955 Requested By: Roosevelt Grijalva Order Number: [id number] MD: Stephon Miranda Measurements Intervals [place] Rate: 82 P: 79 CA: 141 QRS: 56 QRSD: 112 T: 40 QT: 387 QTc: 452 Interpretive Statements Sinus rhythm Nonspecific ST segment abnormality Baseline wander in lead(s) V2 Compared to ECG 04/15/2017 17:24:38 ST segment abnormality is slightly more pronounced Electronically Signed On 10-07-2017 9:09:06 CDT by Stephon Miranda [email or web address] <ELECTRONICALLY SIGNED> By: Stephon Miranda MD, [facility] 10/07/17 0909 1611 161 Stephon Miranda MD, [facility] /EPI
[2017-10-04 17:02] LABS: BE(vivo) 6.7 mmol/L (-2 to +3); HCO3 31.4 mmol/L (22.0-26.0); PCO2 45.2 mmHg (35.0-45.0); PO2 71.2 mmHg (80.0-100.0); pH 7.459 (7.360-7.450)
[2017-10-04 17:03] LABS: HEMATOCRIT 31.3 % (37.0-47.0); HEMOGLOBIN 10.4 gm/dL (12.0-15.0); MCH 27.4 pg (26.0-34.0); MCHC 33.1 g/dL (28.0-37.0); MCV 82.6 fL (80.0-100.0); PLATELET COUNT 256 thou/uL (150-400); RBC 3.78 mil/uL (4.20-5.00); RDW 19.2 % (10.5-14.5); WBC 12.4 thou/uL (4.0-11.0)
[2017-10-04 17:24] LABS: CALCIUM 8.1 mg/dL (8.5-10.1); CREATININE 2.8 mg/dL (0.6-1.0); POTASSIUM 3.4 mmol/L (3.5-5.1)
[2017-10-04 17:30] LABS: ALBUMIN 2.5 g/dL (3.4-5.0)
[2017-10-04 17:55] LABS: ABSOLUTE NEUTROPHILS 9.5 thou/uL (1.4-8.2); PLATELET ESTIMATE NORMAL; POLYCHROMASIA OCCASIONAL
[2017-10-04 17:56] LABS: SCHISTOCYTES RARE; TARGET CELLS OCCASIONAL
[2017-10-05] VITALS (26 sets, daily range): BP systolic 81–124; BP diastolic 33–71
[2017-10-05 05:26] LABS: ALBUMIN 2.1 g/dL (3.4-5.0); CALCIUM 7.4 mg/dL (8.5-10.1); TOTAL PROTEIN 8.1 g/dL (6.4-8.2)
[2017-10-05 05:27] LABS: CREATININE 3.8 mg/dL (0.6-1.0); POTASSIUM 4.5 mmol/L (3.5-5.1)
[2017-10-05 05:40] LABS: HEMATOCRIT 29.6 % (37.0-47.0); HEMOGLOBIN 9.8 gm/dL (12.0-15.0); MCH 27.7 pg (26.0-34.0); PLATELET COUNT 184 thou/uL (150-400); RBC 3.52 mil/uL (4.20-5.00); RDW 18.5 % (10.5-14.5); WBC 9.6 thou/uL (4.0-11.0)
[2017-10-05] MEDS ORDERED: NEPHROCAPS SOFT1 CAP PO (06:10)
[2017-10-05] MEDS ORDERED: VICTOZA0.6 MG/0.1 SUBQ (06:11)
[2017-10-05] MEDS ORDERED: NYAMYC15 GM TOP (06:12)
[2017-10-05] MEDS ORDERED: LOPERAMIDE 2 MG2 M1 PO (06:12)
[2017-10-05] MEDS ORDERED: PAXIL10 MG PO (06:13)
[2017-10-05] MEDS ORDERED: REQUIP0.5 MG PO (06:14)
[2017-10-05] MEDS ORDERED: OCTREOTIDE50 MCG/1 M SUBQ (06:16)
[2017-10-05] MEDS ORDERED: ARTIFICIAL TEA1 EACH INTRAOCULR (06:17)
[2017-10-05 06:45] LABS: ABSOLUTE NEUTROPHILS 5.9 thou/uL (1.4-8.2); ANISOCYTOSIS 2+
[2017-10-05 06:47] LABS: HYPOCHROMASIA 1+; POLYCHROMASIA SLIGHT
[2017-10-05 21:06] LABS: IgA 570 mg/dL (87-352); IgG 2503 mg/dL (700-1600); IgM 178 mg/dL (26-217)
[2017-10-06] VITALS (14 sets, daily range): BP systolic 96–116; BP diastolic 39–64
[2017-10-06 01:10] LABS: HIV ANTIBODY Non Reactive (Non Reactive)
[2017-10-06 07:22] LABS: HEMATOCRIT 30.9 % (37.0-47.0); HEMOGLOBIN 10.1 gm/dL (12.0-15.0); MCH 27.9 pg (26.0-34.0); MCHC 32.8 g/dL (28.0-37.0); RBC 3.64 mil/uL (4.20-5.00); RDW 18.4 % (10.5-14.5); WBC 7.1 thou/uL (4.0-11.0)
[2017-10-06 07:36] LABS: CALCIUM 6.6 mg/dL (8.5-10.1); PHOSPHORUS 6.1 mg/dL (2.5-4.9); POTASSIUM 3.8 mmol/L (3.5-5.1)
[2017-10-06 07:43] LABS: CREATININE 5.8 mg/dL (0.6-1.0)
[2017-10-07 00:11] VITALS: BP 114/48
[2017-10-07 03:10] LABS: HEMATOCRIT 30.6 % (37.0-47.0); MCH 27.5 pg (26.0-34.0); MCHC 32.5 g/dL (28.0-37.0); MCV 84.6 fL (80.0-100.0); RBC 3.62 mil/uL (4.20-5.00); RDW 18.4 % (10.5-14.5); WBC 8.2 thou/uL (4.0-11.0)
[2017-10-07 04:30] VITALS: BP 110/46
[2017-10-07 08:01] VITALS: BP 113/48
[2017-10-07 11:29] VITALS: BP 107/46
[2017-10-07 15:30] VITALS: BP 106/57
[2017-10-07 19:18] LABS: INR 1.2; PROTIME 12.6 Seconds (9.3-11.4)
[2017-10-07 20:05] VITALS: BP 117/60
[2017-10-08 00:22] VITALS: BP 102/43
[2017-10-08 01:08] LABS: HEP B SURFACE Ab(ANTI-HBS Reactive (()); HEPATITIS B SURFACE AG Negative (Negative)
[2017-10-08 04:12] VITALS: BP 135/53
[2017-10-08 07:41] VITALS: BP 119/47
[2017-10-08 10:37] VITALS: BP 93/44
[2017-10-08 11:13] LABS: BE(vivo) -0.3 mmol/L (-2 to +3); HCO3 28.9 mmol/L (22.0-26.0); PCO2 73.6 mmHg (35.0-45.0); PO2 111.1 mmHg (80.0-100.0); pH 7.212 (7.360-7.450); sO2 96.9 % (92.0-98.0)
[2017-10-08 15:10] LABS: BE(vivo) 0.8 mmol/L (-2 to +3); HCO3 29.8 mmol/L (22.0-26.0); PO2 85.2 mmHg (80.0-100.0); sO2 94.1 % (92.0-98.0)
[2017-10-08 15:11] LABS: PCO2 73.8 mmHg (35.0-45.0); pH 7.224 (7.360-7.450)
[2017-10-08 18:11] LABS: HISTOPLASMA MYCELIAL-ID Negative (Negative)
[2017-10-08 19:34] VITALS: BP 121/41
[2017-10-09 02:11] LABS: ADENOVIRUS Negative (Negative); INFLUENZA A Negative (Negative); INFLUENZA B Negative (Negative); METAPNEUMOVIRUS Negative (Negative); PARAINFLUENZA 1 Negative (Negative); PARAINFLUENZA 2 Negative (Negative); PARAINFLUENZA 3 Negative (Negative); RHINOVIRUS Negative (Negative); RSV A Negative (Negative); RSV B Negative (Negative)
[2017-10-09 04:52] VITALS: BP 120/52
[2017-10-09 08:02] VITALS: BP 151/75
[2017-10-09 09:47] LABS: BE(vivo) 3.2 mmol/L (-2 to +3); HCO3 31.7 mmol/L (22.0-26.0); sO2 95.8 % (92.0-98.0)
[2017-10-09 09:48] LABS: PCO2 69.4 mmHg (35.0-45.0); pH 7.277 (7.360-7.450)
[2017-10-09 11:29] VITALS: BP 118/65
[2017-10-09 14:55] VITALS: BP 150/56
[2017-10-10 08:19] VITALS: BP 182/82
[2017-10-10 12:27] VITALS: BP 174/78
[2017-10-10 16:00] VITALS: BP 149/65
[2017-10-10 19:32] VITALS: BP 160/65
[2017-10-11 04:23] VITALS: BP 145/67
[2017-10-11] MEDS ORDERED: LEVAQUIN 500 M500 M2 PO (08:23)
[2017-10-11] MEDS ORDERED: REMERON 30 MG T30 M1 PO (08:24)
[2017-10-11] MEDS ORDERED: PREDNISONE 5 MG5 M1 PO (08:25)
[2017-10-11 08:48] VITALS: BP 142/71
[2017-10-11 11:32] VITALS: BP 153/51
[2017-10-11 14:04] VITALS: BP 153/51
[2017-10-11 14:13] VITALS: BP 153/51
== END 2017-10-11 15:30 | disposition home health service (06) | DRG 853 ==
LOC: ER 15:55 → EROBS 17:47 → 2N 17:47 → ICU 19:00 → 2N 10-06 14:34
PROVIDERS: Emergency Medicine; Hospitalist; Internal Medicine Pulmonary Disease; Specialist
DX: A41.9 Sepsis, unspecified organism (principal); N18.6 End stage renal disease; K55.21 Angiodysplasia of colon with hemorrhage; J18.9 Pneumonia, unspecified organism; J96.21 Acute and chronic respiratory failure with hypoxia; J96.22 Acute and chronic respiratory failure with hypercapnia; I50.30 Unspecified diastolic (congestive) heart failure; J90 Pleural effusion, not elsewhere classified; R18.8 Other ascites; J98.11 Atelectasis; I13.2 Hypertensive heart and chronic kidney disease with heart failure and with stage 5 chronic kidney disease, or end stage renal disease; K74.60 Unspecified cirrhosis of liver; E03.9 Hypothyroidism, unspecified; I25.10 Atherosclerotic heart disease of native coronary artery without angina pectoris; Z66 Do not resuscitate; R65.20 Severe sepsis without septic shock; E11.22 Type 2 diabetes mellitus with diabetic chronic kidney disease; F17.210 Nicotine dependence, cigarettes, uncomplicated; B19.20 Unspecified viral hepatitis C without hepatic coma; H10.9 Unspecified conjunctivitis; I27.20 Pulmonary hypertension, unspecified; R13.10 Dysphagia, unspecified; E11.42 Type 2 diabetes mellitus with diabetic polyneuropathy; Z90.710 Acquired absence of both cervix and uterus; Z86.718 Personal history of other venous thrombosis and embolism; Z86.73 Personal history of transient ischemic attack (TIA), and cerebral infarction without residual deficits; Z95.5 Presence of coronary angioplasty implant and graft; Z88.6 Allergy status to analgesic agent; Z88.8 Allergy status to other drugs, medicaments and biological substances; Z93.0 Tracheostomy status; Z83.3 Family history of diabetes mellitus; Z82.49 Family history of ischemic heart disease and other diseases of the circulatory system
CPT/HCPCS: 10078; 10081; 32100

== ENCOUNTER 2018-01-08 19:28 | Emergency (ER) | payer OTHER ==
[~2018-01-08] VITALS: Ht 157.5 cm; Wt 61.2 kg
--- NOTE | ~2018-01-08 | EKG ---
[address] [place] [address] ELECTROCARDIOGRAM REPORT Name: PERNELL PEREZ Room #: [facility]#: [id number] Admission: 01/08/18 Attend Phys: Discharge: 01/08/18 Date of : 51 Report #: [id number] THIS REPORT FOR: //name// [facility] ED Test Date: 2018-01-08 Test Time: 20:13:18 Pat Name: PERNELL PEREZ Department: Room: Gender: F Business Support Liaison: HERIBERTO : 1955 Requested By: David Quijano Order Number: [id number] MD: Stephon Miranda Measurements Intervals [place] Rate: 77 P: 30 WV: 143 QRS: 26 QRSD: 96 T: 31 QT: 418 QTc: 474 Interpretive Statements Sinus rhythm Poor R wave progression Compared to ECG 10/04/2017 16:11:07 ST (T wave) deviation no longer present Electronically Signed On 01-09-2018 8:07:39 CDT by Stephon Miranda [email or web address] <ELECTRONICALLY SIGNED> By: Stephon Miranda MD, [facility] 01/09/18 0807 12 12 Stephon Miranda MD, [facility] /EPI
[~2018-01-08 19:28] MED LIST changes: +ARTIFICIAL TEA1 EACH INTRAOCULR; +LEVAQUIN 500 M500 M2 PO; +LOPERAMIDE 2 MG2 M1 PO; +NEPHROCAPS SOFT1 CAP PO; +NYAMYC15 GM TOP; +OCTREOTIDE50 MCG/1 M SUBQ; +PAXIL10 MG PO; +PREDNISONE 5 MG5 M1 PO; +REMERON 30 MG T30 M1 PO; +REQUIP0.5 MG PO; +VICTOZA0.6 MG/0.1 SUBQ
[2018-01-08 20:18] LABS: HEMATOCRIT 32.5 % (37.0-47.0); HEMOGLOBIN 10.7 gm/dL (12.0-15.0); MCH 29.3 pg (26.0-34.0); MCHC 32.9 g/dL (28.0-37.0); MCV 88.8 fL (80.0-100.0); PLATELET COUNT 241 thou/uL (150-400); RBC 3.66 mil/uL (4.20-5.00); RDW 17.4 % (10.5-14.5); WBC 5.4 thou/uL (4.0-11.0)
[2018-01-08 20:20] LABS: ANION GAP 4 mmol/L (7-16); BUN 15 mg/dL (7-18); CALCIUM 8.4 mg/dL (8.5-10.1); CHLORIDE 97 mmol/L (98-107); CO2 32 mmol/L (21-32); CREATININE 3.1 mg/dL (0.6-1.0); GLUCOSE 153 mg/dL (74-106); POTASSIUM 3.6 mmol/L (3.5-5.1); SODIUM 133 mmol/L (136-145)
[2018-01-08 20:29] LABS: ALBUMIN 2.4 g/dL (3.4-5.0); LIPASE 261 U/L (73-393); SGOT 64 U/L (15-37); SGPT 22 U/L (30-65); TOTAL BILIRUBIN 0.7 mg/dL (<0.1-1.0); TOTAL PROTEIN 9.1 g/dL (6.4-8.2); TROPONIN-I <0.06 ng/mL (<0.06)
[2018-01-08 21:04] LABS: ABSOLUTE NEUTROPHILS 4.1 thou/uL (1.4-8.2); ANISOCYTOSIS 1+; POLYCHROMASIA OCCASIONAL
[2018-01-08 22:50] LABS: PROTIME 10.1 Seconds (9.3-11.4)
[2018-01-08] MEDS ORDERED: ZOFRAN ODT4 MG PO (22:52)
== END 2018-01-08 22:52 | disposition home or self-care (01) ==
LOC: ER 19:28
PROVIDERS: Physician Assistant
DX: R18.8 Other ascites (principal); E11.42 Type 2 diabetes mellitus with diabetic polyneuropathy; E11.22 Type 2 diabetes mellitus with diabetic chronic kidney disease; N18.6 End stage renal disease; Z99.2 Dependence on renal dialysis; K74.60 Unspecified cirrhosis of liver; I50.30 Unspecified diastolic (congestive) heart failure; E03.9 Hypothyroidism, unspecified; J44.9 Chronic obstructive pulmonary disease, unspecified; Z86.718 Personal history of other venous thrombosis and embolism; I25.10 Atherosclerotic heart disease of native coronary artery without angina pectoris; Z88.5 Allergy status to narcotic agent; Z88.8 Allergy status to other drugs, medicaments and biological substances; Z87.891 Personal history of nicotine dependence

== ENCOUNTER → 2018-01-21 | Outpatient (CLI) | payer OTHER ==
[~2018-01-21] MED LIST changes: +ZOFRAN ODT4 MG PO
== END | disposition home or self-care (01) ==
LOC: ULTRA 12:11
DX: R18.8 Other ascites (principal); J44.9 Chronic obstructive pulmonary disease, unspecified; N18.6 End stage renal disease; D64.9 Anemia, unspecified; Z79.899 Other long term (current) drug therapy; Z88.8 Allergy status to other drugs, medicaments and biological substances; Z86.73 Personal history of transient ischemic attack (TIA), and cerebral infarction without residual deficits; Z98.890 Other specified postprocedural states

== ENCOUNTER 2018-05-28 14:58 | Inpatient (IN) | payer OTHER ==
[~2018-05-28] VITALS: Ht 162.6 cm; Wt 52.1 kg
[2018-05-28 14:58] VITALS: BP 148/53
[2018-05-28 15:21] LABS: ABSOLUTE NEUTROPHILS 6.2 thou/uL (1.4-8.2); BASOPHILS 0.9 % (0.0-2.0); HEMATOCRIT 36.2 % (37.0-47.0); HEMOGLOBIN 12.3 gm/dL (12.0-15.0); LYMPHOCYTES 14.7 % (24.0-44.0); MCH 31.1 pg (26.0-34.0); MCHC 34.1 g/dL (28.0-37.0); MCV 91.3 fL (80.0-100.0); MONOCYTES 8.5 % (1.0-8.0); PLATELET COUNT 234 thou/uL (150-400); POLYS 73.9 % (36.0-66.0); RBC 3.97 mil/uL (4.20-5.00); RDW 16.9 % (10.5-14.5); WBC 8.3 thou/uL (4.0-11.0)
[2018-05-28 15:31] LABS: CALCIUM 8.8 mg/dL (8.5-10.1); CREATININE 5.7 mg/dL (0.6-1.0)
[2018-05-28 15:34] LABS: APTT 23.1 Seconds (24.5-32.8); INR 1.1; PROTIME 11.6 Seconds (9.3-11.4)
--- NOTE | 2018-05-28 15:53 | EKG ---
[place] [address] [facility] [place] [address] ELECTROCARDIOGRAM REPORT Name: PERNELL PEREZ Room #: [facility]#: [id number] ������������������ Admission: 05/28/18 ������������������ Attend Phys: Discharge: ������������������ Date of : 51 Report #: [id number] ����������������������������������������������������������������� [id number] THIS REPORT FOR: //name// [facility] ED Test Date: 2018-05-28 Test Time: 15:20:50 Pat Name: PERNELL PEREZ Department: Room: Gender: F Chocolate Temperer: : 1955 Requested By: Scot Snyder Order Number: [id number] MD: Stephon Miranda Measurements Intervals [place] Rate: 74 P: 24 WV: 159 QRS: 22 QRSD: 101 T: 25 QT: 448 QTc: 497 Interpretive Statements Sinus rhythm Probable left atrial enlargement Borderline prolonged QT interval Compared to ECG 01/08/2018 20:13:18 Poor R-wave progression no longer present Electronically Signed On 05-28-2018 15:53:13 ICU MANAGER by Stephon Miranda [email or web address] ��������������������������������������������� <ELECTRONICALLY SIGNED> ���������������������������������������� By: Stephon Miranda MD, [facility] ��������������������������������������������� 05/28/18 1553 D: 02/1519 19 Stephon Miranda MD, [facility] /EPI
[2018-05-28] MEDS ORDERED: CHANTIX0.5 MG PO (16:13)
[2018-05-28] MEDS ORDERED: LOMOTIL TABLET1 EACH PO (16:13)
[2018-05-28 16:56] VITALS: BP 169/65
[2018-05-28 17:19] VITALS: BP 141/74
[2018-05-28 19:20] VITALS: BP 151/59
[2018-05-28 20:05] LABS: HEMATOCRIT 35.8 % (37.0-47.0); HEMOGLOBIN 11.8 gm/dL (12.0-15.0)
[2018-05-28 23:47] VITALS: BP 148/56
--- NOTE | 2018-05-29 02:09 | NUR ---
ASSUMED CARE OF PATIENT AT 1952 FROM NUCLEAR MEDICINE. BRIEF FULL OF BRIGHT RED BLOOD WITH CLOTS. PATIENT CLEANED, ONE OTHER SMALL EPISDE OF BLEED. C/O PAIN IN HANDS FROM NEUROPATHY. ONE ORDER OF [place]IST[place] OBTAINED. SLEPT WELL FOR A FEW HOURS. NPOL CONSENTS SIGNED. POC GOALS ESTABLISHED.
[2018-05-29 04:05] VITALS: BP 155/50
[2018-05-29 05:47] LABS: BASOPHILS 1.3 % (0.0-2.0); HEMATOCRIT 36.6 % (37.0-47.0); HEMOGLOBIN 12.2 gm/dL (12.0-15.0); MCH 30.7 pg (26.0-34.0); MCHC 33.4 g/dL (28.0-37.0); MCV 91.9 fL (80.0-100.0); MONOCYTES 9.5 % (1.0-8.0); PLATELET COUNT 225 thou/uL (150-400); POLYS 64.2 % (36.0-66.0); RBC 3.98 mil/uL (4.20-5.00); RDW 16.7 % (10.5-14.5); WBC 7.8 thou/uL (4.0-11.0)
[2018-05-29 06:08] LABS: ALBUMIN 2.6 g/dL (3.4-5.0); CALCIUM 8.9 mg/dL (8.5-10.1); PHOSPHORUS 3.3 mg/dL (2.5-4.9); POTASSIUM 3.5 mmol/L (3.5-5.1)
[2018-05-29 06:12] LABS: ALBUMIN 2.6 g/dL (3.4-5.0); DIRECT BILIRUBIN 0.2 mg/dL (<0.1-0.3); TOTAL BILIRUBIN 0.5 mg/dL (<0.1-1.0)
[2018-05-29 06:23] LABS: CREATININE 6.8 mg/dL (0.6-1.0)
[2018-05-29 07:37] VITALS: BP 151/61
--- NOTE | 2018-05-29 10:35 | NUR ---
ASSESSMENT: CM REVIEWED CHART AND MET WITH PATIENT AT THE BEDSIDE. PT IS ALERT AND ORIENTED X4. PT WAS ADMITTED DUE TO POSSIBLE RECTAL BLEED AND GI HAS BEEN CONSULTED. PT HAS HX OF ESRD AND GETS DIALYSIS AT [facility] M-W- 1015. CM CONTACTED [facility] [phone] TO NOTIFY OF PATIENTS ADMISSION AND THEY REQUESTED DISCHARGE PAPERWORK/FLOWSHEETS BE FAXED TO THEIR FAX [phone] AT TIME OF DISCHARGE. PATIENT ALSO RECEIVES SERVICES THROUGH HER MEDICAID WHERE SHE GETS A CAREGIVER TO COME IN THROUGH THE WHOLE PERSON 7 DAYS A WEEK FOR 3.5HRS. PT REPORTS USINS A WALKER IN HER APT. PT STATES SHE HAS NO STEPS TO ENTER THE APT. PT STATES SHE HAS A GRAB BAR AND A SHOWER CHAIR. PT REPORTS THAT SHE HAD OXYGEN AT HOME IN THE PAST BUT STATES SHE HAS NOT HAD IT FOR ABOUT A YEAR. PT REPORTS SHE HAS ALSO HAD [facility] IN THE PAST BUT IS NOT CURRENTLY IN SERVICES WITH THEM. CM WILL CONTINUE TO FOLLOW TO ASSIST NEEDED PATIENT MAY BENEFIT FROM HH AT DISCHARGE.
--- NOTE | 2018-05-29 17:45 | NUR ---
PATIENT JUST COMPLETED DIALYSIS. PER DIALYSIS NURSE, SHE REFUSED TO COMPLETE FULL SESSION SHE IS IN A LOT OF PAIN TO HER COCCYX. ALERT ORIENTED X4. RESPIRATIONS NON LABORED. ON RA. CONT TO PROGRESS TOWARDS DISCHARGE GOALS. NO MORE BLEEDING NOTED AT THIS TIME. WILL CONT WITH PLAN OF CARE.
[2018-05-29 19:02] VITALS: BP 152/52
--- NOTE | 2018-05-29 21:02 | P ---
[facility] [place] [address] PROCEDURE REPORT Name: PERNELL PEREZ Room #: 364-P ADM IN M.R.#: [id number] Admission: 05/28/18 ������������������ Attend Phys: Zhen Guerin MD Discharge: ������������������ Date of : 51 Report #: [id number] THIS REPORT FOR: //name// CC: Marie Guerin MD DATE OF SERVICE: 05/29/2018 PROCEDURE: EGD with biopsies. She is a patient of Dr. Zhen Guerin. INDICATION FOR PROCEDURE: This patient has midepigastric abdominal pain that occurs with eating. It is a pressure-like pain. The patient reports losing approximately 30 pounds in the last 6 months unintentionally because every time she tries to eat some solid food she develops increased epigastric pain that lasts for quite some time. She chews up her food now and spits it out instead of swallowing it. She is hungry all the time. She initially told me she had no appetite, but she is actually hungry and fearful of swallowing any food because of the abdominal pain that follows shortly after swallowing. She also has a history of cirrhosis and she was admitted to the hospital with painless hematochezia. Her hemoglobin has remained stable at 12. EGD and flexible sigmoidoscopy are being performed today. Informed consent for this procedure was obtained prior to the administration of any medication. The risks of the procedure, which include bleeding, perforation, infection, complications of sedation and the possibility I could miss something have been explained to the patient and she has indicated her consent by signing. Anesthesia kindly provided deep sedation for this procedure. Propofol was administered for this procedure by the Anesthesia Service. DESCRIPTION OF PROCEDURE: The Olympus upper videoscope was introduced through the upper esophageal sphincter and advanced under direct visualization to the third portion of the duodenum. Findings were noted on withdrawal of the scope. The duodenal mucosa appears normal throughout its entirety. Pylorus, normal mucosa. Antrum, erythematous mucosa. Body, portal hypertensive gastropathy with patches of erythema. Biopsies obtained from the antrum and body of the stomach for histopathology to evaluate this further. Cardia and fundus, mild erythema is noted. The scope was withdrawn to the esophagus. The Z-line is appropriately located at the top of the gastric folds and appears normal. The esophageal mucosa appears normal throughout its entirety. I did not see any esophageal varices. The scope was withdrawn. The patient was turned for flexible sigmoidoscopy. [address] [address] PROCEDURE REPORT Name: PERNELL PEREZ Room #: 364-P [facility] IN M.R.#: [id number] Admission: 05/28/18 ������������������ Attend Phys: Zhen Guerin MD Discharge: ������������������ Date of : 51 Report #: [id number] IMPRESSION: Portal hypertensive gastropathy. Biopsies obtained from the stomach to evaluate for etiologies of this finding. Other than that, normal esophagus and duodenum. RECOMMENDATIONS: To await the path report and we will proceed with a flexible sigmoidoscopy to evaluate her painless hematochezia at this time. Thank you very much once again for allowing me to participate in her care Dr. Guerin. ��������������������������������������������� <ELECTRONICALLY SIGNED> ���������������������������������������� By: Lita Sinclair DO ��������������������������������������������� 05/29/182 1301 192 Lita Sinclair DO /nt
--- NOTE | 2018-05-29 21:02 | P ---
[facility] [place] [address] PROCEDURE REPORT Name: PERNELL PEREZ Room #: 364-P ADM IN M.R.#: [id number] Admission: 05/28/18 ������������������ Attend Phys: Zhen Guerin MD Discharge: ������������������ Date of : 51 Report #: [id number] THIS REPORT FOR: //name// CC: Marie Guerin MD DATE OF SERVICE: 05/29/2018 PROCEDURE: Flexible sigmoidoscopy with biopsies. DESCRIPTION OF PROCEDURE: Informed consent for this procedure was obtained prior to the administration of any medication. The risks of the procedure, which include bleeding, perforation, infection, complications of sedation have been explained to the patient and they are certainly not limited by these five simple risks and the patient understands and has indicated her consent by signing. Propofol was slowly titrated before and during this procedure for the patient comfort by the Anesthesia Service for deep sedation for this procedure. A digital rectal exam was performed and I could not palpate any masses digitally in the rectum. Then, the Olympus colonoscope was introduced carefully through the anal sphincter and advanced under direct visualization to the distal transverse colon. Findings are noted on withdrawal of the scope. The visualized portion of the distal transverse colon appears normal. At the splenic flexure, however, the mucosa has patchy areas of erythema of uncertain etiology. These extend all the way down through the descending colon, sigmoid colon and into the rectum. Biopsies were obtained x 2 from the descending colon to evaluate this colitis further. Scope was then withdrawn down to the sigmoid colon where colitis was also present. Biopsies were obtained x 2 from the 30 cm erica for histopathology to evaluate this colitis further. In the rectum, there is a single 3-4 mm rectal polyp that is sessile that was removed with a biopsy forceps and sent to pathology lab. Good hemostasis was noted after that polypectomy. It was an incomplete polypectomy, due to spasm in the rectum and the colon I was unable to remove the entire polyp at this time. Retroflexed view in the rectum does reveal ongoing rectal erythema/proctitis. Biopsies were obtained from the rectum x 2 for histopathology as well. Retroflexed view did not reveal any other abnormalities. The scope was withdrawn. The patient went to the recovery area in stable condition. She tolerated the procedure well. IMPRESSION: 1. Proctitis extending from the splenic flexure all the way down to the distal rectum, uncertain etiology. 2. Sigmoid diverticulosis. It should be noted that on introduction of the scope and advancement of the scope up into the colon, we did see blood initially [address] [address] PROCEDURE REPORT Name: PERNELL PEREZ Room #: 364-P ADM IN M.R.#: [id number] Admission: 05/28/18 ������������������ Attend Phys: Zhen Guerin MD Discharge: ������������������ Date of : 51 Report #: [id number] in the rectum and in the distal sigmoid, but not above this level. There were multiple diverticula seen in the sigmoid colon and I suspect that the source of blood loss was from a diverticulum. 3. Rectal polyp partially removed. RECOMMENDATIONS: To await the path report. With her history of diffuse moderately severe abdominal pain with eating, the patient is a smoker, we will monitor her H and H and stool output in that interim. I think she may benefit from a CT angiogram of the mesenteric arteries to be certain that she does not have an ischemic etiology of her abdominal pain or intestinal ischemia. Thank you very much once again for allowing me to participate in her care Dr. Guerin. ��������������������������������������������� <ELECTRONICALLY SIGNED> ���������������������������������������� By: Lita Sinclair DO ��������������������������������������������� 05/29/18 2102 1301 [id number] Lita Sinclair DO /nt
[2018-05-30 03:45] VITALS: BP 155/98
--- NOTE | 2018-05-30 05:08 | NUR ---
PATIENT IS PROGRESSING SLOWLY IN HER CARE PLAN. VITAL SIGNS STABLE WITH PATIENT HAVING NO COMPLAINTS OF NAUSEA. PATIENT DID COMPLAIN OF PAIN FREQUENTLY IN ABDOMEN WHICH WAS TREATED SOMEWHAT EFFECTIVELY WITH MEDICATIONS. FOLLOWING DIALYSIS PATIENT CONSUMED MULTIPLE ITEMS OFF CLEAR LIQUID DIET AND WAS IN PAIN SOON THERE AFTER. NPO FROM MIDNIGHT IN ANTICIPATION OF TODAYS PROCEDURE. PATIENT IS ORIENTED AND ABLE TO PARTICIPATE IN CARE AND CALL APPROPRIATELY FOR NEEDS. PATIENT HAD TWO BOUTS OF FECAL INCONTINENCE WHICH PRODUCED DARK BLOOD. PATIENT WAS ABLE TO GET OUT OF BED WITH ASSISTANCE INCIDENT FREE. CONTINUE PLAN OF CARE.
[2018-05-30 05:58] LABS: ABSOLUTE NEUTROPHILS 4.7 thou/uL (1.4-8.2); BASOPHILS 0.9 % (0.0-2.0); HEMATOCRIT 34.3 % (37.0-47.0); HEMOGLOBIN 11.2 gm/dL (12.0-15.0); LYMPHOCYTES 17.9 % (24.0-44.0); MCHC 32.6 g/dL (28.0-37.0); MCV 91.9 fL (80.0-100.0); MONOCYTES 9.7 % (1.0-8.0); PLATELET COUNT 180 thou/uL (150-400); POLYS 68.5 % (36.0-66.0); RBC 3.73 mil/uL (4.20-5.00); RDW 17.4 % (10.5-14.5); WBC 6.9 thou/uL (4.0-11.0)
[2018-05-30 07:43] VITALS: BP 134/51
[2018-05-30 08:22] LABS: CALCIUM 8.2 mg/dL (8.5-10.1); POTASSIUM 3.1 mmol/L (3.5-5.1)
[2018-05-30] MEDS ORDERED: NICOTINE TRANSD14 M1 TRANSDERM (08:48)
--- NOTE | 2018-05-30 11:28 | HC ---
[facility] [address] [place] [address] CONSULTATION Name: PERNELL PEREZ Room #: 364-P ADM IN M.R.#: [id number] Admission: 05/28/18 ������������������ Attend Phys: Zhen Guerin MD Discharge: ������������������ Date of : 51 Report #: [id number] THIS REPORT FOR: //name// CC: Marie Guerin DATE OF SERVICE: 05/29/2018 ATTENDING PHYSICIAN: Dr. Guerin. REASON FOR CONSULTATION: Rectal bleed. HISTORY OF PRESENT ILLNESS: The patient is extremely well known to our service, on dialysis for several years at our [facility]. She has longstanding diabetes, end-stage renal disease, status post multiple episodes of acute renal failure as well. She has had chronic GI bleeding with AV malformations, had done extremely well for some time on octreotide with stabilization of her very low hemoglobins and 2 months ago the octreotide was discontinued. Yesterday, she developed bright red blood with clots, came to the hospital, but with no drop in her hemoglobin. PAST MEDICAL HISTORY: Very severe chronic obstructive pulmonary disease, ongoing cigarette smoking, cirrhosis with hepatitis C, coronary artery disease with ischemic cardiomyopathy and previous percutaneous intervention and stents, she has had at least 3 cardiorespiratory arrests with CPR, longstanding diabetes, she has left upper arm fistula and a history of DVT as well as hysterectomy and left rotator cuff repair. HOME MEDICATIONS: Listed include amlodipine 5 mg daily, Chantix is listed but she is not taking it, Lipitor 40 mg daily, Renvela 3 with meals t.i.d., Nephrocaps and Victoza subcutaneously. ALLERGIES: REPORTEDLY TO ACYCLOVIR, CYMBALTA, GABAPENTIN, ROBAXIN, MORPHINE. SOCIAL HISTORY: Ongoing cigarette smoking. No substantial alcohol. Lives by herself, but her sisters in the same building. REVIEW OF SYSTEMS: GENERAL: She has otherwise been feeling reasonably well. EYES: Vision is reasonably good. ENT: Hearing okay, swallows okay. No mouth sores. ENDOCRINE: Positive for the diabetes. RESPIRATORY: She chronically has dyspnea with exertion and has a chronic cough. CARDIAC: No chest pain or swelling. GASTROINTESTINAL: She has had some abdominal discomfort along with the rectal bleed from yesterday. [facility] [address] [place] [address] CONSULTATION Name: PERNELL PEREZ Room #: 364-[facility] IN .R.#: [id number] Admission: 05/28/18 ������������������ Attend Phys: Zhen Guerin MD Discharge: ������������������ Date of : 51 Report #: [id number] GENITOURINARY: No dysuria. NEUROLOGIC: Generalized weakness, but gets around okay. PHYSICAL EXAMINATION: GENERAL: This is a chronically ill-appearing patient, looking older than her stated age. SKIN: Otherwise, unremarkable. SKELETAL: Well developed, well nourished, no amputations. HEENT: Extraocular movements are full. Vision intact. No scleral icterus. Hearing intact. Mucous membranes moist. Tongue, buccal mucosa benign. NECK: Supple, no carotid bruits. Left upper arm fistula looks good. CHEST: Shows diminished breath sounds with occasional coarse breath sounds. HEART: Distant, but regular. ABDOMEN: Slightly tender, but soft, mostly in the mid epigastrium. EXTREMITIES: Show no edema. Peripheral pulses are diminished. NEUROLOGIC: Shows some numbness in the feet. LABORATORY DATA: Hemoglobin is 12.2; it should be noted that is rather high for her, platelets 225. Sodium 137, potassium 3.5, chloride 97, bicarbonate 28, BUN 41, creatinine 6.8, phosphorus 3.3, albumin 2.6. ASSESSMENT AND PLAN: 1. Rectal bleed. She is having a rectal bleed, possibly this is related to the discontinuation of the octreotide and rebleeding from her arteriovenous malformations or could be another source. Fortunately, the amount of blood loss is obviously negligible with her hemoglobin staying up nicely. She is due for dialysis today and we will arrange that. 2. End-stage renal disease, for dialysis today. No heparin. 3. Chronic obstructive pulmonary disease with ongoing cigarette smoking. 4. History of cirrhosis with hepatitis C. 5. Diabetes mellitus with peripheral neuropathy and end-stage renal disease. 6. Status post multiple cardiorespiratory arrests with resuscitations. ��������������������������������������������� <ELECTRONICALLY SIGNED> ���������������������������������������� By: Lucho Rehman MD ��������������������������������������������� 05/30/18 1128 1002 [id number] Lucho Rehman MD /nt
[2018-05-30 11:36] VITALS: BP 136/55
--- NOTE | 2018-05-30 13:51 | NUR ---
ON-GOING ASSESSMENT: CM REVIEWED CHART AND SPOKE WITH ATTENDING. PT IS POSSIBLE DISCHARGE TODAY IF OK WITH GI. CM MET WITH PATIENT AT THE BEDSIDE. PT STATING SHE DOES NOT FEEL SHE NEEDS HH AND DOES NOT WANT IT. PT HAS CAREGIVER THROUGH THE WHOLE PERSON 7 DAYS A WEEK. CM CONTACTED [facility] TO NOTIFY THEM OF LIKELY DISCHARGE TODAY AND TO EXPECT PATIENT FOR DIALYSIS ON SATURDAY. CM FAXED FLOWSEETS AND PROGRESS NOTE TO [facility]. PT REPORTS SHE WILL HAVE A RIDE HOME.
[2018-05-30 15:13] VITALS: BP 143/54
--- NOTE | 2018-05-30 15:32 | NUR ---
PATIENT HAS SLEPT THE THROUGH THE DAY STATING SHE DOES NOT FEEL WELL AND WILL LIKE TO STAY IN BED. REMAINS ANURIC. COLOSTOMY TODAY WAS POSPONED FOR OUTPATIENT PROCEDURE ONCE SHE GOES HOME. SHE IS ALERT ORIENTED X4. NO COMPLAIN OF PAIN AT THIS TIME. WILL CONT WITH PLAN OF CARE.
--- NOTE | 2018-05-30 17:06 | PATH ---
[facility] [address] [place] [address] PATHOLOGY RPT PROCEDURE Name: PERNELL PEREZ Room #: 364-P ADM IN M.R.#: [id number] ������������������ Admission: 05/28/18 ������������������ Date of : 51 Discharge: Report #: [id number] Path Case #: [id number] [facility] Accession Number: [id number] . 01 Material submitted: . PART A: BX OF ANTRUM RE:ERYTHEMA R/O H-PYLORI, R/O ISCHEMIA PART B: RANDOM BIOPSY DESCENDING COLON R/O COLITIS PART C: BX COLITIS AT 30CM PART D: BX RECTAL POLYP PART E: RANDOM RECTAL BX OF PROCTITIS . 01 Clinical history: . Pre-OP DX: GI bleed, hematochezia Post-OP DX: Gastric erythema, rectal polyp, gastritis, portal hypertension gastroplasty . 02 Diagnosis: A. Gastric mucosa, antrum (erythema, rule out H. pylori, rule out ischemia), endoscopic biopsy: - Congested lamina propria vessels, - Moderate reactive gastropathy. - Negative for intestinal metaplasia or atrophy. - Negative for Helicobacter pylori (properly controlled immunohistochemical stain performed). . B. Large intestinal mucosa, descending colon rule out colitis, endoscopic biopsy: - Mild active colitis including crypt abscess formation (please see comment). - Negative for dysplasia or malignancy. - Negative for features of microscopic colitis. . C. Large intestinal mucosa, colitis at 30 cm, endoscopic biopsy: - Mild focal active colitis. - Negative for dysplasia or malignancy. - Negative for microscopic colitis. . D. Polyp, rectal polyp, endoscopic biopsy: - Tubulovillous adenoma. - Negative for high-grade dysplasia. . E. Large intestinal mucosa, rectum (proctitis), endoscopic biopsy: - Fragment consistent with ulceration. - Remainder of fragments showing mild active colitis associated with crypt abscess formation and reactive hyperplastic changes. - Negative for dysplasia or malignancy. (IUV:office services associate; 05/30/2018) MBR/05/30/[address] [address] PATHOLOGY RPT PROCEDURE Name: PERNELL PEREZ Room #: 364-P ADM IN ..#: [id number] ������������������ Admission: 05/28/18 ������������������ Date of : 51 Discharge: Report #: [id number] Path Case #: [id number] . 02 Comment: Examination of the "descending colon", "colitis at 30 cm", "rectal biopsy of proctitis" show increased cellularity of the lamina propria cryptitis and surface epithelial inflammation. Fibrinopurulent material consistent with ulceration is present in the "proctitis" biopsy tissue. There are no viral inclusions present. There are no granuloma identified as well. Overall, findings may be suggestive of active colitis due to infectious etiology, acute diverticulitis, inflammatory bowel disease, as well as drug induced injury. Focal atrophic crypts are identified within the rectum/proctitis biopsy tissue raising concern for an ischemic process as well. Changes to suggest ischemia are not identified in the remainder of biopsy tissues. Clinical correlation is suggested. (IUV:office services associate; 05/30/2018) . 02 Electronically signed: . Lisset Cook MD, Pathologist NPI- [id number] . 01 Gross description: . A. Received in formalin labeled "Pernell Perez, BX of antrum erythema, rule out H. pylori," is a single segment of laguerre soft tissue measuring 0.7 cm in maximum dimension. The specimen is entirely submitted in cassette A1. . B. Received in formalin labeled "Pernell Perez, random BX descending colon, rule out colitis," is a single segment of laguerre soft tissue measuring 0.6 cm in maximum dimension. The specimen is entirely submitted in cassette B1. . C. Received in formalin labeled "Pernell Perez, BX colitis at 30 cm," are 2 segments of laguerre soft tissue measuring 0.9 x 0.2 x 0.2 cm in aggregate dimensions and ranging from 0.4 to 0.5 cm in maximum dimension. The specimen is submitted entirely in cassette C1. . D. Received in formalin labeled "Pernell Perez, BX rectal polyp," are 2 segments of laguerre soft tissue measuring 0.9 x 0.3 x 0.3 cm in aggregate dimensions and ranging from 0.4 to 0.5 cm in maximum dimension. The specimen is submitted entirely in cassette D1. . E. Received in formalin labeled "Pernell Perez, random rectal BX of proctitis," are 3 segments of laguerre soft tissue measuring 1.0 x 0.6 x 0.2 cm in aggregate dimensions and ranging from 0.3 to 0.6 cm in maximum dimension. The specimen is submitted entirely in cassette E1. (TSD; 05/29/2018) TOB/TOB . [address] [place] [id number] PATHOLOGY RPT PROCEDURE Name: PERNELL PEREZ Room #: 364-P ADM IN M.R.#: [id number] ������������������ Admission: 05/28/18 ������������������ Date of : 51 Discharge: Report #: [id number] Path Case #: [id number] Pathologist provided ICD-10: K31.9, K52.9, D12.8, K62.6 . 02 CPT . 719135, 476241, 678405, [id number], [id number], [id number] Specimen Comment: A courtesy copy of this report has been sent to Specimen Comment: [phone], , . Specimen Comment: Report sent to ,DR DUTTA / DR HERRERA Performed at: [address] [facility], [place] [id number] MD Brenden Infante MD Phone: [phone] Performed at: [facility] [address] [place], [place] [id number] MD Lisset Cook MD Phone: [phone]
[2018-05-30 19:45] VITALS: BP 151/67
[2018-05-31 04:45] VITALS: BP 151/55
--- NOTE | 2018-05-31 06:31 | NUR ---
PATIENT IS ALERT AND ORIENTED. NURSE CALLED FOR MORE PAIN MEDS. PATIENT IS ON ROOM AIR. SMALL AMOUNT OF BLEEDING FROM RECTUM TODAY. PENDING DISCHARGE TO DO OUT PATIENT COLONOSCOPY. PATIENT WANTS TO ASK DOCTOR ABOUT PAIN MEDICATION FOR AT HOME. PATIENT IS TIMES ONE ASSIST WITH WALKER. PATIENT IS ANURIC. PATIENT HAS A LT AV FISTULA. PATIENT HAS DIALYSIS MWF. PATIENT IS RESTING COMFORTABLEY IN BED. WCM. PATIENT IS PROGRESSING TO GOALS.
[2018-05-31 08:05] VITALS: BP 137/52
[2018-05-31] MEDS ORDERED: HYDROCODONE-AP1 EAC6 PO (09:30)
[2018-05-31 11:47] VITALS: BP 126/52
[2018-05-31 20:30] VITALS: BP 142/54
[2018-05-31 20:59] LABS: HEMATOCRIT 36.9 % (37.0-47.0); HEMOGLOBIN 12.2 gm/dL (12.0-15.0); MCH 30.6 pg (26.0-34.0); MCHC 33.1 g/dL (28.0-37.0); MCV 92.6 fL (80.0-100.0); RBC 3.98 mil/uL (4.20-5.00); RDW 17.6 % (10.5-14.5); WBC 6.5 thou/uL (4.0-11.0)
[2018-05-31 21:09] LABS: CALCIUM 8.4 mg/dL (8.5-10.1); POTASSIUM 3.6 mmol/L (3.5-5.1)
[2018-05-31 21:10] LABS: CREATININE 2.7 mg/dL (0.6-1.0)
[2018-05-31 21:13] LABS: APTT 24.4 Seconds (24.5-32.8); INR 1.1; PROTIME 11.8 Seconds (9.3-11.4)
[2018-05-31 21:15] LABS: ALBUMIN 2.8 g/dL (3.4-5.0); TOTAL BILIRUBIN 0.5 mg/dL (<0.1-1.0); TOTAL PROTEIN 8.7 g/dL (6.4-8.2)
[2018-06-01] VITALS: BP 143/64
--- NOTE | 2018-06-01 03:58 | NUR ---
PATIENT IS ALERT AND ORIENTED. PATIENT IS SBA. PATIENT COMPLAINS OF ABDOMINAL PAIN. PATIENT SEEMS TO BE BETTER WHEN TREATED IN CONJUCTION WITH NAUSEA MEDICATIONS. PATIENT HAD DIAYLSIS AT THE START OF SHIFT. PATIENT IS RESTING COMFORTABLEY. PATIENT IS ON ROOM AIR. LABS ARE STABLE. PATIENT HAS SMALL AMOUNTS OF BLEEDING FROM RECTUM. LBM WAS THE . PATIENT IS PENDING PIPIDA ON SATURDAY AND A COLONOSCOPY OUT PATIENT. WCM. PATIENT IS PROGRESSING TO GOALS
[2018-06-01 05:20] VITALS: BP 156/60
[2018-06-01 08:18] VITALS: BP 121/45
[2018-06-01 10:56] VITALS: BP 127/47
--- NOTE | 2018-06-01 17:08 | NUR ---
PT HAS PREFERRED TO STAY IN BED ALL DAY. DOES NOT SEEM TO BE IN PAIN AT THIS TIME BUT EARLIER SHE RATED ABDOMINAL PAIN AT 10/10. PRN FENTANYL ADMININSTERED. SHE HAS EATEN HER MEALS THROUGH THE DAY WITH NO VOMITING NOTED. WILL CONT WITH PLAN OF CARE.
[2018-06-01 19:51] VITALS: BP 148/61
[2018-06-01 21:32] VITALS: BP 157/59
[2018-06-02] VITALS (8 sets, daily range): BP systolic 79–177; BP diastolic 50–112
--- NOTE | 2018-06-02 03:52 | NUR ---
PROVIDER AWARE OF VITALS AND PAIN. MONITORING. BLEED TO RECTUM IS UNCHANGED. [id number] AMOUNT DUE TO MULT SUPPOSITORIES.
--- NOTE | 2018-06-02 06:47 | NUR ---
PATIENT IS ALERT AND ORIENTED. PATIENT HAS A LOT OF PAIN. PAIN IS TREATED WITH GI COCKTAIL AND PROTONIX AND ONDANSTRON THE BEST. PATIENT HAS BEEN NPO SENSE MIDNIGHT. PATIENTS PAIN IMPROVED A LIL WITH WALKING. PROVIDER AWARE OF BRADICARDIC EPISODE. PATIENTS IV DRESSING WAS CHANGED. PATIENT WAS GIVEN A SUPPOSITORY SMALL HARD BLOODY BM WAS PASSED. PATIENT REQUESTED BRIEFS TO BE WORN IN BED. PATIENT IS PENDING PIPIDA AND DIALYSIS TODAY. PATIENT WILL DO OUT PATIENT COLONOSCOPY. WCM. PATIENT IS RESTING COMFORTABLEY. PATIENT NOT PROGRESSING TO GOALS
[2018-06-02 12:32] LABS: ALBUMIN 2.8 g/dL (3.4-5.0); DIRECT BILIRUBIN 0.2 mg/dL (<0.1-0.3); TOTAL BILIRUBIN 0.5 mg/dL (<0.1-1.0)
--- NOTE | 2018-06-02 18:16 | NUR ---
SHIFT SUMMARY: ALERT AND ORIENTED, VITALS STABLE. MEDICATED FOR ABD PAIN SEVERAL TIMES WITH PRN MEDS. NUC MED FOR PIPIDA SCAN EARLY IN THE MORNING, HEMODIALYSIS THIS AFTERNOON. STARTED ON BLAND DIET AND IS TOLERATING WELL. USING BSC WITH STANDBY ASSISTANCE.
[2018-06-03 06:03] VITALS: BP 143/60
[2018-06-03 08:07] VITALS: BP 136/52
[2018-06-03 11:12] LABS: HEMATOCRIT 35.6 % (37.0-47.0); HEMOGLOBIN 11.5 gm/dL (12.0-15.0); MCH 29.7 pg (26.0-34.0); MCHC 32.2 g/dL (28.0-37.0); MCV 92.3 fL (80.0-100.0); RBC 3.86 mil/uL (4.20-5.00); RDW 17.2 % (10.5-14.5); WBC 14.3 thou/uL (4.0-11.0)
[2018-06-03 12:01] VITALS: BP 134/66
--- NOTE | 2018-06-03 15:42 | 2DMMODE ---
[facility] [address] [place] [address] 2 D/M-MODE ECHOCARDIOGRAM Name: PERNELL PEREZ Room #: 364-P ADM IN M.R.#: [id number] ������������� Admission: 05/28/18 ������������� Attend Phys: Zhen Guerin MD Discharge: ��� ������������� ��� Date of : 51 Date of Service: 06/03/18 1542 �� Report #: [id number] �������� ��������������������������������������������[id number] THIS REPORT FOR: //name// APPROVED REPORT Study performed: 06/03/2018 15:02:44 EXAM: Comprehensive 2D, Doppler, and color-flow Echocardiogram Patient Location: Bedside Room #: 364 Status: routine BSA: 1.60 HR: 673 bpm BP: 134/66 mmHg Rhythm: NSR Other Information Study Quality: Adequate Indications COPD Pulmonary Hypertension Diabetes CAD Hypertension/HDD 2D Dimensions RVDd: 33.64 mm IVSd: 13.18 (7-11mm) LVOT Diam: 20.04 (18-24mm) LVDd: 47.41 mm PWd: 13.20 (7-11mm) Ascending Ao: 28.05 (22-36mm) LVDs: 27.31 (25-40mm) Aortic Root: 31.14 mm IVC: 22.00 mm Volumes Left Atrial Volume (Systole) Single Plane 4CH: 71.48 mL Single Plane 2CH: 64.61 mL LA ESV Index: 45.00 mL/m2 Aortic Valve AoV Peak Tulio.: 1.66 m/s AO Peak Gr.: 11.02 mmHg LVOT Max P.52 mmHg LVOT Max V: 1.28 m/s LUZ MARIA Vmax: 2.43 cm2 [facility] [address] [place] [address] 2 D/M-MODE ECHOCARDIOGRAM Name: PERNELL PEREZ Room #: 364-P [facility] IN ..#: [id number] ������������� Admission: 05/28/18 ������������� Attend Phys: Zhen Guerin MD Discharge: ��� ������������� ��� Date of : 51 Date of Service: 06/03/18 1542 �� Report #: [id number] �������� ��������������������������������������������[id number] Mitral Valve E/A Ratio: 1.2 MV Decel. Time: 253.97 ms MV E Max Tulio.: 1.17 m/s MV A Tulio.: 1.01 m/s MV PHT: 73.65 ms IVRT: 78.43 ms Pulmonary Valve PV Peak Tulio.: 1.12 m/s PV Peak Gr.: 5.04 mmHg Pulmonary Vein P Vein S: 0.46 m/s P Vein A: 0.36 m/s P Vein D: 0.42 m/s P Vein A Dur.: 120.0 msec P Vein S/D Ratio: 1.10 Tricuspid Valve TR Peak Tulio.: 3.64 m/s TR Peak Gr.: 52.92 mmHg PA Pressure: 63.00 mmHg Left Ventricle The left ventricle is normal size. There is normal LV segmental wall motion. Mild concentric left ventricular hypertrophy. Left ventricular systolic function is hyperdynamic. LVEF is >70%. Grade II - pseudonormal filling dynamics. Right Ventricle The right ventricle is normal size. The right ventricular systolic function is normal. Atria Left atrium is dilated. Right atrium is dilated. Aortic Valve The aortic valve is normal in structure. Aortic valve is calcified. No aortic regurgitation is present. There is no aortic valvular stenosis. Mitral Valve The mitral valve is normal in structure. Mild mitral regurgitation. No evidence of mitral valve stenosis. Tricuspid Valve The tricuspid valve is normal in structure. There is mild to moderate tricuspid regurgitation. Estimated PAP 63 mmHg. There is moderate [facility] [address] [place] [address] 2 D/M-MODE ECHOCARDIOGRAM Name: PERNELL PEREZ Room #: 364-P ADM IN M.R.#: [id number] ������������� Admission: 05/28/18 ������������� Attend Phys: Zhen Guerin MD Discharge: ��� ������������� ��� Date of : 51 Date of Service: 06/03/18 1542 �� Report #: [id number] �������� ��������������������������������������������[id number] pulmonary hypertension. Pulmonic Valve The pulmonary valve is normal in structure. Trace pulmonic regurgitation. Great Vessels The aortic root is normal in size. IVC is dilated and collapses <50% with inspiration. Pericardium There is no pericardial effusion. <Conclusion> The left ventricle is normal size. Mild concentric left ventricular hypertrophy. Left ventricular systolic function is hyperdynamic. Grade II - pseudonormal filling dynamics. The right ventricle is normal size. Left atrium is dilated. Right atrium is dilated. Aortic valve is calcified. There is no aortic valvular stenosis. Mild mitral regurgitation. There is mild to moderate tricuspid regurgitation. Estimated PAP 63 mmHg. There is moderate pulmonary hypertension. ��������������������������������������������� <ELECTRONICALLY SIGNED> ���������������������������������������� By: Arnold Leal MD ��������������������������������������������� 06/03/18 1542 [id number] Arnold Leal MD /INF
[2018-06-03 17:22] VITALS: BP 109/49
[2018-06-03 19:07] VITALS: BP 135/49
--- NOTE | 2018-06-03 21:22 | NUR ---
NURSE UPDATED PATIENT ON PLAN OF CARE AND PHYSICIANS PLAN FOR POTENTIAL SURGERY THE DAY PROGRESSED. SHE IS NPO, WHICH WAS EXPLAINED, EXCEPT FOR SIPS OF WATER WITH MEDICATIONS. POTENTIAL PLAN FOR SURGERY SATURDAY OR SATURDAY IF ALL PHYSICIANS CLEAR PATIENT TO GO. CARDIOLOGY CONSULT NOTED AND SOMEONE FROM THE GROUP ROUNDED. PAIN BETTER CONTROLED TODAY WITH AN INCREASE DOSEAGE ON PAIN MEDICATION. PRN MEDICATION FOR PAIN DOES NOT APPEAR TO LAST PATIENT THE FOUR HOURS AND SHE IS IN PAIN THE LAST HOUR BEFORE TIME TO GET HER NEXT DOSE. NURSE ENCOURAGED RELAXATION TECHNIQUES AND REST TO GET PATIENT THROUGH THE LAST HOUR. ASSESSMENTS AND VITAL SIGNS DOCUMETNED. PATIENT HAS RESTED THROUGHOUT THE DAY. NURSE PLACED OXYGEN HER OXYGEN LEVELS WERE LOWER AFTER PAIN MEDICATION ADMINISTRATION. WHEN SHE IS AWAKE HER O2 SATURATION IS HIGHER. REPORT GIVEN TO THE ULTRASOUND MANAGER RN FOR CONTINUATION OF CARE. PATIENT EXPRESSED THAT SHE NEEDS TO KNOW WHEN AND IF SHE IS HAVING SURGERY SO THAT SHE CAN LET HER FAMILY KNOW TO BE HERE IF THEY CAN. PATIENT DID EXPRESS IMPROVED PAIN RELIEF WITH IV PAIN MEDICATION.
[2018-06-04 03:17] VITALS: BP 139/56
[2018-06-04 05:19] LABS: HEMATOCRIT 35.8 % (37.0-47.0); HEMOGLOBIN 11.4 gm/dL (12.0-15.0); MCH 29.6 pg (26.0-34.0); MCHC 31.8 g/dL (28.0-37.0); MCV 92.9 fL (80.0-100.0); RBC 3.86 mil/uL (4.20-5.00); WBC 10.8 thou/uL (4.0-11.0)
[2018-06-04 05:31] LABS: CALCIUM 8.3 mg/dL (8.5-10.1); CREATININE 5.2 mg/dL (0.6-1.0); POTASSIUM 4.3 mmol/L (3.5-5.1)
--- NOTE | 2018-06-04 07:46 | NUR ---
PT MAKING POOR PROGRESS TOWARDS GOALS. PT GOAL HAS BEEN 5/10. PT C/O SEVERE ABDOMINAL PAIN AT TIMES. PT FOUND TO BE NEARLY TEARFUL, MOANING AND ROCKING BACK AND FORTH IN BED DURING THESE EPISODES RATING THE PAIN 9 OR 10/10. FENTANYL GIVEN PER ORDERS AND ALONG WITH LORTAB.
[2018-06-04 08:40] VITALS: BP 139/59
[2018-06-04 13:43] VITALS: BP 140/78
--- NOTE | 2018-06-04 14:34 | NUR ---
on-going assessment: PT GOT CARDIAC CLEARANCE FOR SURGERY. PT IS TO HAVE CHOLECYSTECTOMY. CM WILL CONTINUE TO FOLLOW TO ASSIST NEEDED.
[2018-06-04 16:13] VITALS: BP 91/54
--- NOTE | 2018-06-04 18:20 | NUR ---
Assumed care off at 0700. Pt alert and oriented x3 in no acute distress. complaining of severe pain to abdominal area. dialyzed this AM - then taken to OR for lap wilder. lap sites dermabonded. patient asking for pain meds this evening, but is lethargic and blood pressure low. will hold pain meds until bp higher. sinus on telemetry. now on clear liquid. calls out appropriately. pt progressing toward poc goals.
[2018-06-04 20:15] VITALS: BP 128/48
[2018-06-05] VITALS (7 sets, daily range): BP systolic 86–138; BP diastolic 39–60
--- NOTE | 2018-06-05 05:50 | NUR ---
PT MAKING SLOW PROGRESS TOWARDS GOALS. PT REQUESTING IV PAIN MEDICATIONS APPROXIMATELY EVERY THREE HOURS. PT FREQUENTLY REPORTING ABDOMINAL PAIN AT 8-9/10 WHEN ASKING FOR PAIN MEDICATIONS. OF NOTE, PT STATES THAT GLOBAL ABDOMINAL PAIN IS GONE AND IS NOW ONLY LOCATED IN THE RUQ. LAP SITES AND CLEAN AND INTACT.
[2018-06-05 08:05] LABS: HEMATOCRIT 32.2 % (37.0-47.0); HEMOGLOBIN 10.5 gm/dL (12.0-15.0); MCH 30.1 pg (26.0-34.0); MCHC 32.7 g/dL (28.0-37.0); MCV 92.1 fL (80.0-100.0); RBC 3.5 mil/uL (4.20-5.00); RDW 16.5 % (10.5-14.5); WBC 10.2 thou/uL (4.0-11.0)
[2018-06-05] MEDS ORDERED: PERCOCET PO (08:22)
[2018-06-05 10:01] LABS: ALBUMIN 2.4 g/dL (3.4-5.0); DIRECT BILIRUBIN 0.2 mg/dL (<0.1-0.3); TOTAL BILIRUBIN 0.4 mg/dL (<0.1-1.0)
--- NOTE | 2018-06-05 12:39 | NUR ---
ON-GOING ASSESSMENT: CM REVIEWED CHART AND SPOKE WITH ATTENDING. PT IS PROGRESSING WELL AND IS POSSIBLE DISCHARGE WITH HH TODAY. CM SPOKE WITH PATIENT AND [facility] THAT SHE HAD HAD IN THE PAST IS AT [facility] SO CANNOT ACCEPT HER AT THIS TIME. PT HAS NO RPEFERENCE FOR HH. CM S[facility]FERRAL TO [facility].
[2018-06-06] VITALS (7 sets, daily range): BP systolic 101–121; BP diastolic 40–60
--- NOTE | 2018-06-06 05:12 | NUR ---
ASSUMED PT CARE AROUND 1900. A&OX4, FORGETFUL. DENIES N/V. C/O RLQ ABDOMINAL PAIN. 4 ABDOMINAL LAP SITES C/D/I. PAIN MEDICATION GIVEN INDICATED, WITH TEMPORARY RELIEF. PT REQUESTED IMODIUM FOR LOOSE STOOLS. ORDER RECEIVED AND MEDICATION GIVEN. PT SLEPT OFF AND ON DURING THE NIGHT. RESP EVEN AND UNLABORED. UP TO BSC WITH ASSISTANCE. FALL PRECAUTIONS IN PLACE. PROGRESSING SLOWLY TOWARD POC GOALS. WILL CONTINUE TO MONITOR FURTHER.
[2018-06-06 05:53] LABS: HEMATOCRIT 30.7 % (37.0-47.0); MCH 30.2 pg (26.0-34.0); MCHC 32.5 g/dL (28.0-37.0); MCV 92.9 fL (80.0-100.0); RBC 3.3 mil/uL (4.20-5.00); RDW 16.7 % (10.5-14.5); WBC 9.8 thou/uL (4.0-11.0)
[2018-06-06 06:16] LABS: ALBUMIN 2.3 g/dL (3.4-5.0); DIRECT BILIRUBIN 0.2 mg/dL (<0.1-0.3); TOTAL BILIRUBIN 0.5 mg/dL (<0.1-1.0); TOTAL PROTEIN 7.5 g/dL (6.4-8.2)
--- NOTE | 2018-06-06 14:21 | NUR ---
on-going assessment: cm reviewed CHART AND MET WITH PATIENT AT THE BEDSIDE. PT HAS ORDERS TO DISCHARGE HOME TODAY WITH HH ([facility]). CM NOTIFIED [facility] OF DISCHARGE AND CM FAXED DISCHARGE ORDERS/SUMMARY AND CONFIRMED THEY RECEIVED THEM. CM CONTACTED [facility] OF DISCHARGE TODAY AND FAXED OVER DISCHARGE PAPERWORK. PT REPORTS HAVING A RIDE HOME AND REPORTS NO FURTHER QUESTIONS FROM CM.
--- NOTE | 2018-06-06 15:28 | NUR ---
Assumed care of patient at 0700. Vitals have been stable. Patient alert and oriented x4. Complaints of RLQ pain. Dilaudid given this morning with good effect. Patient left for dialysis this morning and returned this afternoon. Only able to take 500 mL off during dialysis because BP then soft. Improved now on return to floor. Now controlled pain with PO Percocet with partial pain relief. Dermabond sites to abdomen are C/D/I - some bruising noted to abdomen, reported to Dr. Daly. Patient up with one assist. One loose stool this shift. Discharge orders received. Reviewed new prescriptions with patient at bedside, including discharge orders and follow up appointments. Verbalizes understanding. IV and telemetry discontinued. Belongings gathered. Belongings returned to patient from security. Patient to discharge home with home health via wheelchair when ride is here.
--- NOTE | 2018-06-09 14:06 | PATH ---
[facility] [place] [address] [place] [address] PATHOLOGY RPT PROCEDURE Name: PERNELL PEREZ Room #: 364-P [facility] IN M.R.#: [id number] ������������������ Admission: 05/28/18 ������������������ Date of : 51 Discharge: 06/06/18 Report #: [id number] Path Case #: [id number] [facility] Accession Number: [id number] . 01 Material submitted: . GALLBLADDER . 01 Clinical history: . Symptomatic cholelithiasis . 02 Diagnosis: Gallbladder, cholecystectomy: - Moderate chronic cholecystitis associated with ulceration. - Cholelithiasis. (IUV:poultry culler; 06/06/2018) MBR/06/06/2018 . 02 Electronically signed: . Lisset Cook MD, Pathologist NPI- [id number] . 01 Gross description: . Received in formalin labeled "Pernell Perez, gallbladder," is an irregular, previously opened and disrupted gallbladder measuring 8.7 x 3.2 x 2.1 cm in greatest dimensions. The serosal surface is wrinkled to shaggy and pale yellow-laguerre to dark brown in appearance. The mucosal surface is shaggy, granular and green-laguerre to dark brown in appearance, measuring 0.1 cm in thickness with an average gallbladder wall thickness of 0.2 cm. No polyps or nodules are noted grossly. A 5.8 x 4.9 x 2.3 cm aggregate of friable, dark brown material is present within the specimen and specimen container that contains yellow calculi ranging from 0.1 to 2.0 cm in maximum dimension. The specimen is submitted representatively in cassette A1, to include the body, possible infundibulum and possible fundus. ([facility]; 06/05/2018) XDC/XDC . 02 Pathologist provided ICD-10: K80.10 . 02 CPT . 312165 Specimen Comment: A courtesy copy of this report has been sent to Specimen Comment: [phone], , . Specimen Comment: Report sent to ,DR DUTTA / DR HERRERA Specimen Comment: A duplicate report has been generated due to demographic updates. [address] [address] PATHOLOGY RPT PROCEDURE Name: PERNELL PEREZ Room #: 364-P DIS IN M.R.#: [id number] ������������������ Admission: 05/28/18 ������������������ Date of : 51 Discharge: 06/06/18 Report #: [id number] Path Case #: [id number] Performed at: 01 [facility] Roger Leal [address], [place], [place] [id number] MD Brenden Infante MD Phone: [phone] Performed at: [address] [id number] MD Lisset Cook MD Phone: [phone]
== END 2018-06-06 18:45 | disposition home health service (06) | DRG 356 ==
LOC: ER 14:58 → EROBS 16:15 → 3W 16:15 → ENTRNSPT 06-06 17:09 → 3W 06-06 18:45
PROVIDERS: Emergency Medicine; Hospitalist; Internal Medicine Gastroenterology; Nurse Practitioner; Specialist; ADMIT Internal Medicine
PROC: 5A1D70Z Performance of Urinary Filtration, Intermittent, Less than 6 Hours Per Day (ICD-10-PCS; principal; 2018-05-29)
PROC: 0DB68ZX Excision of Stomach, Via Natural or Artificial Opening Endoscopic, Diagnostic (ICD-10-PCS; principal; 2018-05-29)
PROC: 0DBM8ZX Excision of Descending Colon, Via Natural or Artificial Opening Endoscopic, Diagnostic (ICD-10-PCS; 2018-05-29)
PROC: 0DBP8ZX Excision of Rectum, Via Natural or Artificial Opening Endoscopic, Diagnostic (ICD-10-PCS; 2018-05-29)
PROC: 5A1D70Z Performance of Urinary Filtration, Intermittent, Less than 6 Hours Per Day (ICD-10-PCS; 2018-05-31)
PROC: 5A1D70Z Performance of Urinary Filtration, Intermittent, Less than 6 Hours Per Day (ICD-10-PCS; 2018-06-02)
PROC: 0FT44ZZ Resection of Gallbladder, Percutaneous Endoscopic Approach (ICD-10-PCS; 2018-06-04)
PROC: 5A1D70Z Performance of Urinary Filtration, Intermittent, Less than 6 Hours Per Day (ICD-10-PCS; 2018-06-04)
PROC: 5A1D70Z Performance of Urinary Filtration, Intermittent, Less than 6 Hours Per Day (ICD-10-PCS; 2018-06-06)
DX: K57.31 Diverticulosis of large intestine without perforation or abscess with bleeding (principal); N18.6 End stage renal disease; E43 Unspecified severe protein-calorie malnutrition; K76.6 Portal hypertension; I13.2 Hypertensive heart and chronic kidney disease with heart failure and with stage 5 chronic kidney disease, or end stage renal disease; K55.9 Vascular disorder of intestine, unspecified; R18.8 Other ascites; Z68.1 Body mass index [BMI] 19.9 or less, adult; K55.21 Angiodysplasia of colon with hemorrhage; K80.20 Calculus of gallbladder without cholecystitis without obstruction; E11.22 Type 2 diabetes mellitus with diabetic chronic kidney disease; K74.60 Unspecified cirrhosis of liver; E03.9 Hypothyroidism, unspecified; J44.9 Chronic obstructive pulmonary disease, unspecified; E11.42 Type 2 diabetes mellitus with diabetic polyneuropathy; I25.10 Atherosclerotic heart disease of native coronary artery without angina pectoris; T78.40XA Allergy, unspecified, initial encounter; I25.5 Ischemic cardiomyopathy; F17.210 Nicotine dependence, cigarettes, uncomplicated; E87.6 Hypokalemia; D50.9 Iron deficiency anemia, unspecified; E11.51 Type 2 diabetes mellitus with diabetic peripheral angiopathy without gangrene; E78.5 Hyperlipidemia, unspecified; I70.208 Unspecified atherosclerosis of native arteries of extremities, other extremity; B19.20 Unspecified viral hepatitis C without hepatic coma; Z60.2 Problems related to living alone; Z96.659 Presence of unspecified artificial knee joint; K82.8 Other specified diseases of gallbladder; Z86.73 Personal history of transient ischemic attack (TIA), and cerebral infarction without residual deficits; Z90.710 Acquired absence of both cervix and uterus; Z86.718 Personal history of other venous thrombosis and embolism; Z87.81 Personal history of (healed) traumatic fracture; Z95.5 Presence of coronary angioplasty implant and graft; Z88.6 Allergy status to analgesic agent; Z88.8 Allergy status to other drugs, medicaments and biological substances; Z83.3 Family history of diabetes mellitus; Z82.49 Family history of ischemic heart disease and other diseases of the circulatory system; K62.89 Other specified diseases of anus and rectum
CPT/HCPCS: 10879; 32100; 50010; 50101; 50249; 50411; 50555; 50558; 50900; 50962; 51489; 51975; 52265; 52266; 52287; 53307; 53310; 54022; 54118; 55245; 55317; 56462; 56525; 56526; 56639; 62110; 62900; 70005

== ENCOUNTER 2018-06-10 16:21 | Emergency (ER) | payer OTHER ==
[~2018-06-10] VITALS: Ht 162.6 cm; Wt 52.2 kg
[~2018-06-10 16:21] MED LIST changes: +CHANTIX0.5 MG PO; +LOMOTIL TABLET1 EACH PO; +NICOTINE TRANSD14 M1 TRANSDERM; +PERCOCET PO
[2018-06-10 16:53] LABS: HEMATOCRIT 33.2 % (37.0-47.0); MCH 30.1 pg (26.0-34.0); MCHC 33.2 g/dL (28.0-37.0); MCV 90.7 fL (80.0-100.0); PLATELET COUNT 279 thou/uL (150-400); RBC 3.66 mil/uL (4.20-5.00); RDW 16.6 % (10.5-14.5); WBC 7.6 thou/uL (4.0-11.0)
[2018-06-10 17:10] LABS: ABSOLUTE NEUTROPHILS 4.9 thou/uL (1.4-8.2); ANISOCYTOSIS 1+; PLATELET ESTIMATE NORMAL
[2018-06-10 17:20] LABS: CALCIUM 8.2 mg/dL (8.5-10.1); CREATININE 3.9 mg/dL (0.6-1.0); POTASSIUM 4.3 mmol/L (3.5-5.1)
[2018-06-10 17:25] LABS: ALBUMIN 2.1 g/dL (3.4-5.0); TOTAL BILIRUBIN 0.4 mg/dL (<0.1-1.0); TOTAL PROTEIN 7.4 g/dL (6.4-8.2)
[2018-06-10 20:13] VITALS: BP 138/67
[2018-06-10] MEDS ORDERED: ANUSOL-HC25 MG RECTAL (20:17)
[2018-06-10] MEDS ORDERED: ZOFRAN ODT4 MG PO (20:18)
== END 2018-06-10 20:31 | disposition home or self-care (01) ==
LOC: ER 16:21
PROVIDERS: Nurse Practitioner Family
DX: R19.7 Diarrhea, unspecified (principal); R11.2 Nausea with vomiting, unspecified; E03.9 Hypothyroidism, unspecified; J44.9 Chronic obstructive pulmonary disease, unspecified; I25.10 Atherosclerotic heart disease of native coronary artery without angina pectoris; E11.42 Type 2 diabetes mellitus with diabetic polyneuropathy; E11.22 Type 2 diabetes mellitus with diabetic chronic kidney disease; N18.6 End stage renal disease; I50.30 Unspecified diastolic (congestive) heart failure; Z87.891 Personal history of nicotine dependence; Z88.8 Allergy status to other drugs, medicaments and biological substances; Z86.2 Personal history of diseases of the blood and blood-forming organs and certain disorders involving the immune mechanism; Z86.718 Personal history of other venous thrombosis and embolism; Z90.710 Acquired absence of both cervix and uterus; Z95.5 Presence of coronary angioplasty implant and graft; Z88.6 Allergy status to analgesic agent; Z86.73 Personal history of transient ischemic attack (TIA), and cerebral infarction without residual deficits

== ENCOUNTER 2018-06-18 12:36 | Emergency (ER) | payer OTHER ==
[~2018-06-18] VITALS: Ht 162.6 cm; Wt 55.3 kg
[~2018-06-18 12:36] MED LIST changes: +ANUSOL-HC25 MG RECTAL
[2018-06-18 13:04] LABS: ABSOLUTE NEUTROPHILS 5.1 thou/uL (1.4-8.2); BASOPHILS 0.9 % (0.0-2.0); EOSINOPHILS 2.7 % (0.0-3.0); HEMATOCRIT 31.1 % (37.0-47.0); HEMOGLOBIN 10.4 gm/dL (12.0-15.0); MCH 30.6 pg (26.0-34.0); MCHC 33.4 g/dL (28.0-37.0); MCV 91.7 fL (80.0-100.0); MONOCYTES 8.1 % (1.0-8.0); PLATELET COUNT 249 thou/uL (150-400); POLYS 68.3 % (36.0-66.0); RBC 3.39 mil/uL (4.20-5.00); RDW 18.4 % (10.5-14.5); WBC 7.5 thou/uL (4.0-11.0)
[2018-06-18 13:06] LABS: ANION GAP 8 mmol/L (7-16); BUN 26 mg/dL (7-18); CALCIUM 8.4 mg/dL (8.5-10.1); CHLORIDE 99 mmol/L (98-107); CO2 32 mmol/L (21-32); CREATININE 4.8 mg/dL (0.6-1.0); GLUCOSE 99 mg/dL (74-106); POTASSIUM 3.2 mmol/L (3.5-5.1); SODIUM 139 mmol/L (136-145)
[2018-06-18 13:14] LABS: ALBUMIN 2.2 g/dL (3.4-5.0); LIPASE 127 U/L (73-393); SGOT 35 U/L (15-37); SGPT 16 U/L (30-65); TOTAL BILIRUBIN 0.4 mg/dL (<0.1-1.0); TOTAL PROTEIN 7.7 g/dL (6.4-8.2); TROPONIN-I <0.06 ng/mL (<0.06)
[2018-06-18 13:51] LABS: ANISOCYTOSIS 1+; PLATELET ESTIMATE NORMAL
[2018-06-18] MEDS ORDERED: TRAMADOL 50 MG50 MG PO (15:42)
[2018-06-18] MEDS ORDERED: MIRALAX17 GM PO (15:45)
[2018-06-18 16:00] VITALS: BP 135/67
--- NOTE | 2018-06-19 07:48 | EKG ---
[place] [address] [facility] [place] [address] ELECTROCARDIOGRAM REPORT Name: PERNELL PEREZ Room #: DEP [facility]#: [id number] ������������������ Admission: 06/18/18 ������������������ Attend Phys: Discharge: 06/18/18 ������������������ Date of : 51 Report #: [id number] ����������������������������������������������������������������� [id number] THIS REPORT FOR: //name// [facility] ED Test Date: 2018-06-18 Test Time: 13:40:52 Pat Name: PERNELL EPREZ Department: Room: Gender: F Bed Control Specialist: WG : 1955 Requested By: Nguyen Suarez Order Number: [id number] MD: Stephon Miranda Measurements Intervals [place] Rate: 65 P: -1 OH: 116 QRS: 42 QRSD: 99 T: 20 QT: 461 QTc: 480 Interpretive Statements Sinus rhythm Borderline short OH interval Borderline prolonged QT interval Compared to ECG 05/28/2018 15:20:50 No significant changes Electronically Signed On 06-19-2018 7:48:26 CDT by Stephon Miranda [email or web address] ��������������������������������������������� <ELECTRONICALLY SIGNED> ���������������������������������������� By: Stephon Miranda MD, [facility] ��������������������������������������������� 06/19/18 0748 1340 1340 Stephon Miranda MD, FAC /EPI
== END 2018-06-18 16:00 | disposition home or self-care (01) ==
LOC: ER 12:36
PROVIDERS: Nurse Practitioner Family
DX: K59.00 Constipation, unspecified (principal); K60.2 Anal fissure, unspecified; I13.2 Hypertensive heart and chronic kidney disease with heart failure and with stage 5 chronic kidney disease, or end stage renal disease; E11.22 Type 2 diabetes mellitus with diabetic chronic kidney disease; I50.30 Unspecified diastolic (congestive) heart failure; N18.6 End stage renal disease; K74.60 Unspecified cirrhosis of liver; E03.9 Hypothyroidism, unspecified; J44.9 Chronic obstructive pulmonary disease, unspecified; G62.9 Polyneuropathy, unspecified; E78.5 Hyperlipidemia, unspecified; I25.10 Atherosclerotic heart disease of native coronary artery without angina pectoris; Z86.2 Personal history of diseases of the blood and blood-forming organs and certain disorders involving the immune mechanism; Z86.718 Personal history of other venous thrombosis and embolism; Z90.710 Acquired absence of both cervix and uterus; Z87.891 Personal history of nicotine dependence; Z88.8 Allergy status to other drugs, medicaments and biological substances; Z88.5 Allergy status to narcotic agent

== ENCOUNTER 2018-06-21 20:20 | Inpatient (IN) | payer OTHER ==
[~2018-06-21] VITALS: Ht 162.6 cm; Wt 56.7 kg
[~2018-06-21 20:20] MED LIST changes: +MIRALAX17 GM PO; +TRAMADOL 50 MG50 MG PO
[2018-06-21 20:22] VITALS: BP 139/76
[2018-06-21 20:50] LABS: ABSOLUTE NEUTROPHILS 3.6 thou/uL (1.4-8.2); EOSINOPHILS 3.1 % (0.0-3.0); HEMATOCRIT 25.4 % (37.0-47.0); HEMOGLOBIN 8.4 gm/dL (12.0-15.0); MCH 30.8 pg (26.0-34.0); MCHC 33.3 g/dL (28.0-37.0); MCV 92.4 fL (80.0-100.0); MONOCYTES 10.2 % (1.0-8.0); PLATELET COUNT 213 thou/uL (150-400); POLYS 59.7 % (36.0-66.0); RBC 2.74 mil/uL (4.20-5.00); RDW 19.9 % (10.5-14.5); WBC 6.1 thou/uL (4.0-11.0)
[2018-06-21 20:57] LABS: ANION GAP 0 mmol/L (7-16); BUN 39 mg/dL (7-18); CALCIUM 8.5 mg/dL (8.5-10.1); CHLORIDE 100 mmol/L (98-107); CO2 39 mmol/L (21-32); CREATININE 4.4 mg/dL (0.6-1.0); GLUCOSE 143 mg/dL (74-106); POTASSIUM 4.4 mmol/L (3.5-5.1); SODIUM 139 mmol/L (136-145)
[2018-06-21 21:06] LABS: ALBUMIN 1.9 g/dL (3.4-5.0); LIPASE 480 U/L (73-393); SGOT 33 U/L (15-37); SGPT 15 U/L (30-65); TOTAL BILIRUBIN 0.3 mg/dL (<0.1-1.0); TOTAL PROTEIN 7.5 g/dL (6.4-8.2); TROPONIN-I <0.06 ng/mL (<0.06)
[2018-06-22 02:21] VITALS: BP 146/65
[2018-06-22 02:45] LABS: CLARITY CLOUDY; COLOR RED; TOTAL VOLUME 30 mL
[2018-06-22 02:49] LABS: BF NUCLEATED CELLS 509; BF RBC 11821
[2018-06-22 03:19] LABS: SOURCE ABDOMINAL
[2018-06-22 03:22] LABS: BF NEUTROPHILS 8
[2018-06-22 03:23] LABS: BF MACROPHAGE 8
[2018-06-22 03:30] VITALS: BP 146/59
--- NOTE | 2018-06-22 03:50 | NUR ---
Pt. admitted to the unit from the emergency room accompanied by staff via stretcher. Pt. immediately demanding pain medicine. Explained to the pt. that I need to wait for her orders to come through. Pt. very hateful and not very understanding. Bed alarm is on.
[2018-06-22 03:54] VITALS: BP 146/59
--- NOTE | 2018-06-22 04:30 | NUR ---
Attempted to give pt. her fentanyl that was ordered for pain, but pt. did not want it. She expressed that it does not help with her pain. notified and new orders for morphine and dc fentanyl (see cpoe). Morphine was given (see emar). Admission assessment and history was completed.
[2018-06-22 05:17] LABS: HEMATOCRIT 24.4 % (37.0-47.0); HEMOGLOBIN 8.1 gm/dL (12.0-15.0); MCH 30.7 pg (26.0-34.0); MCHC 33.1 g/dL (28.0-37.0); MCV 92.9 fL (80.0-100.0); RBC 2.62 mil/uL (4.20-5.00); WBC 5.4 thou/uL (4.0-11.0)
[2018-06-22 05:29] LABS: CALCIUM 7.8 mg/dL (8.5-10.1); CREATININE 4.3 mg/dL (0.6-1.0); POTASSIUM 3.9 mmol/L (3.5-5.1)
[2018-06-22 05:30] LABS: INR 1.1
[2018-06-22 08:00] VITALS: BP 115/51
[2018-06-22 11:10] LABS: BODY FLUID GLUCOSE 119 mg/dL (()); BODY FLUID LDH 68 IU/L (()); BODY FLUID PROTEIN 2.6 g/dL (())
--- NOTE | 2018-06-22 13:41 | EKG ---
[place] [address] [address] [facility] [place] [address] ELECTROCARDIOGRAM REPORT Name: PERNELL PEREZ Room #: 463-P ADM IN M.R.#: [id number] ������������������ Admission: 06/22/18 ������������������ Attend Phys: Teri Gordon Discharge: ������������������ Date of : 51 Report #: [id number] ����������������������������������������������������������������� [id number] THIS REPORT FOR: //name// [facility] ED Test Date: 2018-06-21 Test Time: 20:34:12 Pat Name: PERNELL PEREZ Department: Room: 463 Gender: F Photographic Aide: vandana : 1955 Requested By: Munir Weiner Order Number: [id number] MD: Stephon Miranda Measurements Intervals [place] Rate: 65 P: 28 SD: 154 QRS: 6 QRSD: 101 T: 25 QT: 448 QTc: 466 Interpretive Statements Sinus rhythm Poor R wave progression Compared to ECG 06/18/2018 13:40:52 No significant change was found Electronically Signed On 06-22-2018 13:41:27 CDT by Stephon Miranda [email or web address] ��������������������������������������������� <ELECTRONICALLY SIGNED> ���������������������������������������� By: Stephon Miranda MD, [facility] ��������������������������������������������� 06/22/18 1341 33 33 Stephon Miranda MD, [facility] /EPI
[2018-06-22 15:00] VITALS: BP 110/43
--- NOTE | 2018-06-22 17:56 | NUR ---
PT A&OX4, VSS. PT STATES SHE HAS GENERALIZED PAIN. PT GOAL IS FOR PAIN CONTROL. PT STATED SHES HAPPY SHE CAN EAT WITHOUT PAIN AND TOLERATED FOOD TODAY. PT HAD PARACENTESIS. WILL CONTINUE TO MONITOR.
[2018-06-22 19:55] VITALS: BP 95/61
--- NOTE | 2018-06-23 04:12 | NUR ---
Assumed care of pt at 2300. A&ox4. IV antibiotic administered. C/o back pain. Prn pain meds administered. Dialysis MWF. Call light within reach. Will continue to monitor.
[2018-06-23 04:31] LABS: CALCIUM 7.7 mg/dL (8.5-10.1)
[2018-06-23 04:36] LABS: CREATININE 6.1 mg/dL (0.6-1.0)
[2018-06-23 05:12] LABS: HEMATOCRIT 23.1 % (37.0-47.0); HEMOGLOBIN 7.6 gm/dL (12.0-15.0); MCH 31.2 pg (26.0-34.0); MCHC 32.9 g/dL (28.0-37.0); MCV 94.9 fL (80.0-100.0); RBC 2.43 mil/uL (4.20-5.00); RDW 19.9 % (10.5-14.5)
--- NOTE | 2018-06-23 05:14 | NUR ---
CARE ASSUMED AT 1900 AND ENDED UP AT 2200. PATIENT WAS AOX4 MADE NEEDS KNOWN. PATIENT HAS HOME INSULIN, FAMILY BROGHT IT AND ITS IN THE FRIDGE. PATIENT DENIED PAIN OR DISCOMFORT. PATIENT IN BED ASLEEP AT THIS TIME BREATHING REGULAR AND UNLABOURED.
[2018-06-23 05:21] VITALS: BP 121/50
[2018-06-23 08:29] VITALS: BP 123/49
[2018-06-23 09:32] LABS: SOURCE ABDOMINAL
[2018-06-23 15:46] VITALS: BP 114/56
--- NOTE | 2018-06-23 18:19 | CRIT ---
[facility] [place] [address] [place] [address] CRITICAL CARE NOTE Name: PERNELL PEREZ Room #: 463-P ADM IN M.R.#: [id number] Admission: 06/22/18 ������������������ Attend Phys: Teri Gordon Discharge: ������������������ Date of : 53 Report #: [id number] THIS REPORT FOR: //name// CC: Teri Gordon Marie Elbert DATE OF SERVICE: 06/22/2018 HISTORY OF PRESENT ILLNESS: The patient is a pleasant 62-year-old male who I have been asked to see for abdominal pain, which is now resolved after disimpaction. She did have right upper quadrant and midepigastrium pain as well as anorectal pain upon presentation. She has had a cholecystectomy on 06/04/2018 and had begun to have pain approximately 3-4 days after that. His pain has now resolved. 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 She has had DVT, CVA, and cirrhosis with hepatitis C. She has had ascites, cardiac arrest, constipation, end-stage renal disease, dialysis, intra-abdominal abscesses, rectal fissure, respiratory failure, severe sepsis. ALLERGIES: SHE IS ALLERGIC TO MULTIPLE MEDICATIONS DOCUMENTED IN THE CHART. MEDICATION: On presentation include Norvasc, Lomotil, Chantix, Lipitor, Renvela, Nephrocaps, Victoza, artificial tears. FAMILY HISTORY AND SOCIAL HISTORY: Noncontributory. REVIEW OF SYSTEMS: She denies head, eyes, ears, nose or throat complaints. Denies chest pain, chest palpitation, chest pressure, cough, shortness of breath, wheezing, genitourinary, musculoskeletal or neuropsychiatric complaints beyond that mentioned above. PHYSICAL EXAMINATION: GENERAL: The patient is currently afebrile. VITAL SIGNS: Stable. HEENT: Nonicteric. NECK: No JVD, thyromegaly or bruits. CARDIOVASCULAR: Regular. LUNGS: Clear anteriorly. ABDOMEN: Soft, nondistended, nontender, normoactive bowel sounds. No hepatosplenomegaly. No stigmata of chronic liver disease. No abnormal masses or bruits. EXTREMITIES: No edema. NEUROLOGIC: Deferred. RECTAL: Deferred. She apparently had rectal exam with disimpaction yesterday and complete resolution of her symptoms. [address] [address] CRITICAL CARE NOTE Name: PERNELL PEREZ Room #: 463-P ADM IN M.R.#: [id number] Admission: 06/22/18 ������������������ Attend Phys: Teri Gordon Discharge: ������������������ Date of : 53 Report #: [id number] IMAGING STUDIES: Reveal abdominal pelvis CT scan, air collections over the gallbladder fossa, uncertain as to whether or not this is abscess related or postsurgical. There is diffuse ascites throughout the abdomen, increase in right pleural effusion. LABORATORY DATA: Notable for hemoglobin 8.4, down to 8.1. White count normal, platelet count 213. INR 1.1. Chemistry notable for venous bicarbonate 39, BUN 39, creatinine 4.4, glucose 143, alkaline phosphatase 208. AST and ALT normal, protein normal, lipase 480, albumin 1.9. ASSESSMENT AND PLAN: In summary, the patient presents with abdominal pain and significant complex history. She has had complete resolution of her abdominal pain post-disimpaction. She had mild elevation in her lipase, chronic anemia and abnormal CT of the gallbladder fossa, which may be postsurgical. The fact that her white count is normal suggest to me that this is not abscess related, but postsurgical. If she developed a white count or recurrent right upper quadrant pain, I would be significantly concerned about an abscess. This may be related to the lipase being elevated; however, she does not have clinical presentation consistent with pancreatitis. At this point, I would observe for recurrent abdominal pain after eating and proceed with advancing her diet. I would also monitor her for fever or any sign of occult infection. I would also watch her lipase to see if it is elevated with advancement of her diet. Thank you for allowing us to participate in her care. We will follow concurrently. ��������������������������������������������� <ELECTRONICALLY SIGNED> ���������������������������������������� By: Omar Patino MD ��������������������������������������������� 06/23/181818 1 39 Kevin Servin MD /nt
[2018-06-23 19:25] VITALS: BP 125/48
[2018-06-24 03:04] VITALS: BP 125/52
--- NOTE | 2018-06-24 04:25 | NUR ---
PATIENT HAD X2 BOWEL MOVEMENT THIS SHIFT, BLACK SOFT STOOLS. PERICARE AND BARRIER CREAM APPLIED NEEDED. PATIENT ABD IS SOFT AND ROUND. PAIN CONTROLLED THIS SHIFT. 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 NEW ORDER OF TONG. PATIENT DENIED NAUSEA OR VOMIT THIS SHIFT. PATIENT IN BED ASLEEP AT THIS TIME BREATHING REGULAR AND UNLABOURED.
[2018-06-24 05:19] LABS: HEMATOCRIT 23.9 % (37.0-47.0); HEMOGLOBIN 7.8 gm/dL (12.0-15.0)
[2018-06-24 07:20] VITALS: BP 126/69
--- NOTE | 2018-06-24 10:56 | NUR ---
ASSUMED CARE 0700. PAIN MANAGED WITH MEDICAITON, DENIES NAUSEA, NO VOMITING AT THIS TIME. TOLERATE HER MORNING MEAL. REQUIEST DRESSING ON ABD TO CHANGE DUE TO ITCHING. BANDAID IN PLACE OVER SITE ON RIGHT ABD. LAP SITE INTACT. ON FALL PRECATIONS, CALL LIGHT IN REACH. SLEEPING AT THIS TIME AND AWAKENS EASILY. PLANS TO DC HOME WITH FAMILY THIS AFTERNOON .
[2018-06-24 13:47] VITALS: BP 126/69
--- NOTE | 2018-06-24 14:55 | NUR ---
INITIAL ASSESSMENT/DISCHARGE NOTE: DIAN reviewed chart and spoke with nursing and attending physician. Pt was admitted from home due to intra-abdominal abscess. Pt is medically stable for discharge home today. DIAN met with pt at bedside. Introduced role of SW. Pt is alert/orientated x 4. Pt reports she lives at home alone. Pt has family that are involved in pt's care. Pt goes to outpatient dialysis at [facility] MWF at 1015. Pt has in-home services through her [place]icaid 3.5 hrs/daily. Pt is [facility] with [facility]. Pt's PCP is Dr. Marie Boswell. Pt has a walker and home O2 in place at home. Pt states she is interested in finding a new PCP. SW provided pt with list of [facility] providers. Pt is agreeable with discharge plan. Pt's dtr will provide transportation home today. Contact info for [facility] placed in pt's discharge summary. DIAN faxed clinical info and discharge orders/summary to [facility]. DIAN notified [facility] clinical science liaison of pt's discharge. DIAN faxed clinical info and discharge orders/summary/dialysis flow sheets to [facility] and left voice message to notify of pt's discharge. No additional SW needs identified at this time, but is available to assist should needs arise.
== END 2018-06-24 15:20 | disposition home health service (06) | DRG 432 ==
LOC: ER 20:20 → EROBS 06-22 01:52 → 4W 06-22 01:52 → ENTRNSPT 06-24 15:10 → EDTRNSPTSTS 06-24 15:13 → 4W 06-24 15:20
PROVIDERS: Emergency Medicine; Nurse Practitioner Family; ADMIT Hospitalist
PROC: 0W9G30Z Drainage of Peritoneal Cavity with Drainage Device, Percutaneous Approach (ICD-10-PCS; principal; 2018-06-22)
PROC: 5A1D70Z Performance of Urinary Filtration, Intermittent, Less than 6 Hours Per Day (ICD-10-PCS; principal; 2018-06-22)
DX: K74.60 Unspecified cirrhosis of liver (principal); N18.6 End stage renal disease; K65.2 Spontaneous bacterial peritonitis; R18.8 Other ascites; L02.211 Cutaneous abscess of abdominal wall; K92.1 Melena; Q27.30 Arteriovenous malformation, site unspecified; B18.2 Chronic viral hepatitis C; K80.20 Calculus of gallbladder without cholecystitis without obstruction; K82.8 Other specified diseases of gallbladder; J44.9 Chronic obstructive pulmonary disease, unspecified; E78.5 Hyperlipidemia, unspecified; R26.81 Unsteadiness on feet; K59.00 Constipation, unspecified; E11.51 Type 2 diabetes mellitus with diabetic peripheral angiopathy without gangrene; Z96.659 Presence of unspecified artificial knee joint; E11.22 Type 2 diabetes mellitus with diabetic chronic kidney disease; E03.9 Hypothyroidism, unspecified; I25.10 Atherosclerotic heart disease of native coronary artery without angina pectoris; E11.42 Type 2 diabetes mellitus with diabetic polyneuropathy; Z79.899 Other long term (current) drug therapy; Z88.8 Allergy status to other drugs, medicaments and biological substances; Z86.73 Personal history of transient ischemic attack (TIA), and cerebral infarction without residual deficits; Z88.5 Allergy status to narcotic agent; Z90.710 Acquired absence of both cervix and uterus; Z90.49 Acquired absence of other specified parts of digestive tract; Z87.891 Personal history of nicotine dependence; Z86.718 Personal history of other venous thrombosis and embolism
CPT/HCPCS: 10040; 32100

== ENCOUNTER 2018-07-11 00:11 | Inpatient (IN) | payer OTHER ==
[~2018-07-11] VITALS: Ht 157.5 cm; Wt 56.2 kg
--- NOTE | ~2018-07-11 | HC ---
[facility] [place] [address] [place] [address] CONSULTATION Name: PERNELL PEREZ Room #: 451-P ADM IN M.R.#: [id number] Admission: 07/11/18 ������������������ Attend Phys: Zhen Guerin MD Discharge: ������������������ Date of : 53 Report #: [id number] THIS REPORT FOR: //name// CC: ROD physician/PCP Zhen Guerin DATE OF SERVICE: 07/11/2018 REASON FOR CONSULTATION: End-stage renal disease. HISTORY OF PRESENT ILLNESS: The patient is well known to our service, has been followed for several years with end-stage renal disease. She has over the last couple of months, had ongoing and difficult issues with abdominal pain, mostly midepigastric. She eventually underwent cholecystectomy approximately 6 weeks ago. Unfortunately, the abdominal pain really has not subsided, although it has changed a little bit in character. She had quite a bit of diarrhea, but that is at least temporarily resolved. She continues to have serious abdominal pain with poor p.o. intake, alternates between constipation and diarrhea and is unable to effectively eat. She was admitted at [facility], also had a paracentesis, which ruled out spontaneous bacterial peritonitis at that time. She also has recurrent right pleural effusions, which has recurred. At [facility], she also had an episode of confusion and unsteadiness and tremor, possible seizure versus stroke, was transferred to [facility], but she was treated extremely rudely there and she left and now is admitted here. PAST MEDICAL HISTORY: She has very severe COPD, ongoing tobacco abuse. She has end-stage renal disease, longstanding diabetes. She has cirrhosis secondary presumably to hepatitis C, diffuse peripheral arterial disease. She has had the recent cholecystectomy and recurrent right pleural effusions as mentioned above. She has known cardiac disease, has had multiple code blue arrests and resuscitations over the last several years, typically while she is in the hospital. Most recent echocardiogram from 2 months ago showed preserved left ventricular function with left ventricular hypertrophy, possibly some diastolic dysfunction and she currently continues on with her abdominal pain. In addition, she has also had AVM issues with treatment with Sandostatin, which has helped her chronic ongoing GI bleeding and anemia. PAST SURGICAL HISTORY: Includes a left upper extremity dialysis fistula, left rotator cuff repair, hysterectomy, arthroscopic surgery on her right knee. ALLERGIES: REPORTED TO ACYCLOVIR, DULOXETINE, GABAPENTIN, ROBAXIN AND ESTROGENS. FAMILY HISTORY: Noncontributory. SOCIAL HISTORY: She continues to smoke. No substantial alcohol. [facility] [address] [place] [address] CONSULTATION Name: PERNELL PEREZ Room #: 451-P [facility] IN M.R.#: [id number] Admission: 07/11/18 ������������������ Attend Phys: Zhen Guerin MD Discharge: ������������������ Date of : 51 Report #: [id number] REVIEW OF SYSTEMS: GENERAL: She is feeling poorly and weak. EYES: Her vision is not good. ENT: Hearing okay, swallows okay. No mouth sores. ENDOCRINE: Positive for the diabetes and she also has hypothyroidism. RESPIRATORY: Easily short-winded, no pleuritic pain. CARDIAC: No chest pain or angina or swelling in her legs. GASTROINTESTINAL: She has had the ongoing epigastric pain as mentioned. GENITOURINARY: Makes very little urine. NEUROLOGIC: She had this episode as described above, but no definitive history of stroke. Generalized weakness is noted, but she can walk with a walker at home. PHYSICAL EXAMINATION: GENERAL: This is a chronically ill-appearing patient, looking much older than her stated age. SKIN: No lesions noted. SKELETAL: No amputations. HEENT: Extraocular movements are full. No scleral icterus. Hearing and vision grossly intact. Mucous membranes slightly dry. NECK: Veins are not distended. No carotid bruits. CHEST: Shows diminished breath sounds at the right base. HEART: Regular. ABDOMEN: Soft, some tenderness in the mid epigastrium. EXTREMITIES: Show no edema. Peripheral pulses diminished. LABORATORY DATA: Hemoglobin 8.2, white count 6.5, platelets 190. Sodium 129, potassium 5.2, chloride 94, bicarbonate 30, creatinine 3.5, BUN 48. ASSESSMENT AND PLAN: 1. End-stage renal disease. We will dialyze today on a 2 potassium bath, no ultrafiltration. 2. Recurrent right pleural effusion for thoracentesis. 3. Cirrhosis, presumably secondary to hepatitis C. 4. Longstanding diabetes mellitus with triopathy including peripheral neuropathy. 5. Ongoing abdominal pain suggestive of intestinal ischemia, although CT angiogram showed reasonable patency of the celiac and mesenteric arteries. 6. Status post cholecystectomy. 7. Chronic obstructive pulmonary disease with ongoing cigarette smoking. 8. Status post multiple cardiorespiratory arrests. ��������������������������������������������� ���������������������������������������� By: ��������������������������������������������� [id number] Lucho Rehman MD /nt
[2018-07-11 00:46] LABS: ABSOLUTE NEUTROPHILS 3.8 thou/uL (1.4-8.2); BASOPHILS 1.1 % (0.0-2.0); EOSINOPHILS 3.8 % (0.0-3.0); HEMATOCRIT 24.9 % (37.0-47.0); HEMOGLOBIN 8.2 gm/dL (12.0-15.0); LYMPHOCYTES 29.2 % (24.0-44.0); MCH 30.3 pg (26.0-34.0); MCHC 32.8 g/dL (28.0-37.0); MCV 92.4 fL (80.0-100.0); MONOCYTES 7.2 % (1.0-8.0); PLATELET COUNT 190 thou/uL (150-400); POLYS 58.7 % (36.0-66.0); WBC 6.5 thou/uL (4.0-11.0)
[2018-07-11 00:57] LABS: ANION GAP 5 mmol/L (7-16); BUN 48 mg/dL (7-18); CALCIUM 7.2 mg/dL (8.5-10.1); CHLORIDE 94 mmol/L (98-107); CO2 30 mmol/L (21-32); CREATININE 3.5 mg/dL (0.6-1.0); GLUCOSE 87 mg/dL (74-106); POTASSIUM 5.2 mmol/L (3.5-5.1); SODIUM 129 mmol/L (136-145)
[2018-07-11 01:02] LABS: ALBUMIN 2.2 g/dL (3.4-5.0); SGOT 43 U/L (15-37); SGPT 16 U/L (30-65); TOTAL BILIRUBIN 0.3 mg/dL (<0.1-1.0); TOTAL PROTEIN 7.5 g/dL (6.4-8.2); TROPONIN-I <0.06 ng/mL (<0.06)
--- NOTE | 2018-07-11 03:30 | NUR ---
Pt. was admitted to the unit from the emergency room accompanied by staff and family member. Pt. is alert and oriented. Admission assessment and history is completed. Pt. c/o abdominal pain and was premediacted upon arrival to the unit. Bed alarm is on.
[2018-07-11 03:39] VITALS: BP 155/54
[2018-07-11 03:45] VITALS: BP 120/52
--- NOTE | 2018-07-11 06:00 | NUR ---
PAIN MEDICATION GIVEN DOWN IN THE ER WAS PAIN EFFECTIVE. PT. RESTED QUIETLY THE REMAINDER OF THE SHIFT. BED ALARM IS ON.
[2018-07-11 08:26] VITALS: BP 144/66
[2018-07-11 11:09] LABS: APTT 23.1 Seconds (24.5-32.8); PROTIME 10.8 Seconds (9.3-11.4)
--- NOTE | 2018-07-11 11:15 | NUR ---
Nutrition: assess d/t consult for weight. Pt admitted for right PE; hx of ESRD w/ HD. Pt currently NPO for possible thoracentesis. Pt denies any recent weight loss, states UBW of ~125 lbs. Previously liked Ensure Enlive, will reorder BID. Obtained food preferences. With nutrition intervention in place, consider low nutrition risk.
--- NOTE | 2018-07-11 12:48 | NUR ---
Pt admitted related toright plural effusion, encephalopathy. CM reviewed chart and spoke with care team. CM met with pt at bedside this day. Pt is a&o x4. cm role introduced. Pt indicated she lives alone in an apartment with no steps to enter and no steps inside. Pt indicated she has a fww to use upon dc. Pt indicated she has caregiver services through [facility] for 3.5hrs 7 days a week. She indicated he son is her caregiver. Pt goes to [facility] at 1015. pt had been [facility] with [facility]. Pt indicated she plans to return home once Medically stable. Cm to follow as indicated with dc planning.
--- NOTE | 2018-07-11 13:34 | NUR ---
DISCHARGE PLANNING. ANTICIPATED DISCHARGE PLANNED FOR THE BEGINNING OF NEXT WEEK. HOME HEALTH SERVICES RECOMMENDED FOR PATIENT AT DISCHARGE. REFERRAL FAXED TO [facility]. CALL PLACED TO [facility] TO NOTIFY. [facility] TO VISIT WITH PATIENT SATURDAY OF NEXT WEEK TO DISCUSS [facility]. [facility] TO FACILITATE PATIENTS HOME HEALTH NEEDS ONCE DISCHARGE ORDERS OBTAINED. FOLLOWING TO ASSIST WITH DISCHARGE NEEDS.
[2018-07-11 15:47] VITALS: BP 145/59
--- NOTE | 2018-07-11 16:28 | NUR ---
IT IS ANTICPATED THAT PT WILL LIKELY BE HERE OVER THE WEEKEND. SHOULD PT BE READY TO DC FAX HOME HEALTH ORDERS TO [facility] . CM TO FOLLOW INDICATED WITH DC PLANNING.
--- NOTE | 2018-07-11 19:58 | NUR ---
PATIENT REFUSED CARE THIS AM. REFUSED TO HAVE LAB DRAWN. NOTIFIED DR. HERRERA. DR. HERRERA THEN SPOKE WITH PATIENT AND THEN PATIENT COOPERATED WITH CARE. HAS BEEN PLEASANT SINCE THEN. REMAINED NPO FOR THORACENTESIS. THORACENTESIS DELAYED DUE TO NON COMPLIANCE SO UNABLE TO DO TODAY. DR. HERRERA NOTIFIED AND WILL DO THORACENTESIS ON SATURDAY. MAIN COMPLAINT IS LEFT HAND PAIN FROM RECENT FINGER FRACTURES. MEDICATED WITH MORPHINE AND THEN ABLE TO SLEEP. WENT TO DIALYSIS AROUND 1600. ATE SOME LAWSON CRACKERS AND PEANUT BUTTER PRIOR TO GOING TO DIALYSIS. XRAY DONE OF LEFT HAND WHICH CONFIRMED 2,3,4 FINGER FRACTURES. ORTHOPEDICS CONSULTED.
[2018-07-12 04:15] VITALS: BP 130/48
[2018-07-12 05:17] LABS: HEMATOCRIT 28.2 % (37.0-47.0); HEMOGLOBIN 8.2 gm/dL (12.0-15.0); MCH 30.1 pg (26.0-34.0); MCHC 29.2 g/dL (28.0-37.0); RBC 2.74 mil/uL (4.20-5.00); RDW 18.6 % (10.5-14.5); WBC 3.9 thou/uL (4.0-11.0)
--- NOTE | 2018-07-12 05:24 | NUR ---
Pt. rested quietly at short intervals during the night when checked on during frequent rounds. C/o some constipation and new order for dulcolax suppository which pt. did not want as she was very tired after dialysis. Blood sugar at hs was 50, but soon up to 87 after pt. had some of her dinner and juice. She c/o abdominal pain and pain to her left hand. Po pain meds given with no relief or some relief noted (see emar). Bed alarm is on.
[2018-07-12 05:48] LABS: ALBUMIN 2.1 g/dL (3.4-5.0); CALCIUM 7.4 mg/dL (8.5-10.1); CREATININE 2.8 mg/dL (0.6-1.0); PHOSPHORUS 2.9 mg/dL (2.5-4.9); POTASSIUM 4.3 mmol/L (3.5-5.1)
[2018-07-12 07:31] VITALS: BP 155/51
[2018-07-12 15:47] VITALS: BP 135/65
--- NOTE | 2018-07-12 17:25 | NUR ---
Pt stable through out the shift. did have 2 bowel movements. Initial bm was formed and moderated in amount while the 2nd bm was explosive and loose with some formed stools. Pt has a bandage on her left wrist til her hand and would take them on and off, claiming that it is when she squeezes her hand that the pain is lessened. But pain in her hand is what she complained of in the afternoon, pain medication given and partial relief was noted. Pt is aware that she needs to be on NPO midnight gary Saturday for her procedure on Saturday morning (US thoracenthesis). Stated pain in the abdomen is much better compared to previous days. No further issues verbalized or identifed. POC followed.
[2018-07-12 19:11] VITALS: BP 137/50
--- NOTE | 2018-07-13 02:03 | NUR ---
PT SLEPT ON AND OFF DURING THE NIGHT PT COMPLAINING OF 10 OUT OF 10 ABDOMINAL PAIN AND NAUSEA PT CRYING PT GIVEN TRAMADOL AND ZOFRAN AND REGLAN PT WAS ABLE TO GET SOME SLEEP AFTER MEDICATIONS. PT USED CALL LIGHT EFFECTIVELY.
[2018-07-13 03:33] VITALS: BP 166/69
[2018-07-13 07:33] VITALS: BP 170/69
--- NOTE | 2018-07-13 13:11 | EKG ---
[address] [place] [address] ELECTROCARDIOGRAM REPORT Name: PERNELL PEREZ Room #: 451-P ADM IN M.R.#: [id number] ������������������ Admission: 07/11/18 ������������������ Attend Phys: Zhen Guerin MD Discharge: ������������������ Date of : 51 Report #: [id number] ����������������������������������������������������������������� [id number] THIS REPORT FOR: //name// 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: emily luo : 1955 Requested By: Litzy Fowler Order Number: [id number] MD: Stephon Miranda Measurements Intervals [place] Rate: 62 P: 29 AR: 126 QRS: 23 QRSD: 91 T: 37 QT: 464 QTc: 472 Interpretive Statements Sinus rhythm Nonspecific ST segment abnormality Compared to ECG 06/21/2018 20:34:12 Poor R-wave progression no longer present Electronically Signed On 07-13-2018 13:11:15 CDT by Stephon Miranda [email or web address] ��������������������������������������������� <ELECTRONICALLY SIGNED> ���������������������������������������� By: Stephon Miranda MD, [facility] ��������������������������������������������� 07/13/18 1311 0059 0059 Stephon Miranda MD, [facility] /EPI
[2018-07-13 14:08] VITALS: BP 172/59
--- NOTE | 2018-07-13 15:21 | NUR ---
TOWARDS POC PT A/O X4, VSS,AFEBRILE, PAIN MANAGED BY MEDS. WILL CONTINUE TO MONITOR.
[2018-07-13 19:47] VITALS: BP 152/67
--- NOTE | 2018-07-14 01:05 | NUR ---
Pt refused bed alarm after being advised.
[2018-07-14 04:52] VITALS: BP 149/53
--- NOTE | 2018-07-14 05:46 | NUR ---
Assumed care at 1845. Pt resting in bed. Been having abdmnl pain and N/V. Informed TILLER MAN who prescribed Prochlorperazine which seemed to have help. She refused to have bed alarm on. Shes been NPO since midnight. For possible thoracentesis in the am. No identified needs at the moment. Call light within reach. Will continue to monitor.
[2018-07-14 05:56] LABS: HEMOGLOBIN 8.5 gm/dL (12.0-15.0); MCH 30.3 pg (26.0-34.0); MCHC 32.8 g/dL (28.0-37.0); RBC 2.82 mil/uL (4.20-5.00); RDW 17.1 % (10.5-14.5); WBC 4.9 thou/uL (4.0-11.0)
[2018-07-14 06:01] LABS: MCV 92.2 fL (80.0-100.0)
[2018-07-14 06:09] LABS: ALBUMIN 2.2 g/dL (3.4-5.0); CALCIUM 7.2 mg/dL (8.5-10.1); MAGNESIUM 2.2 mg/dL (1.8-2.4); TOTAL BILIRUBIN 0.3 mg/dL (<0.1-1.0); TOTAL PROTEIN 7.2 g/dL (6.4-8.2)
[2018-07-14 06:16] LABS: CREATININE 4.9 mg/dL (0.6-1.0); POTASSIUM 5.6 mmol/L (3.5-5.1)
[2018-07-14 07:24] VITALS: BP 147/50
--- NOTE | 2018-07-14 09:19 | NUR ---
Pt is on telemetry, manifested hr of 27 40's, checked pt, pt was asymptomatic. Pt 10 minutes after came to afib at 136. Informed Dr. Guerin, read labs and informed him that dialysis will start this am then thoracenthesis will be at 1 pm, was advised to proceed with POC today and not to cancel any procedures slated, No neew orders given with regards to the reported telemetry manifestation.
[2018-07-14 13:38] VITALS: BP 190/77
[2018-07-14 15:31] VITALS: BP 163/64
[2018-07-14 16:27] LABS: CLARITY SLIGHTLY CLOUDY; COLOR DARK YELLOW; SOURCE RIGHT THORACENTESIS; TOTAL VOLUME 61 mL
[2018-07-14 16:32] LABS: BF NUCLEATED CELLS 427; BF RBC 2726
[2018-07-14 17:50] LABS: BF MACROPHAGE 0; BF NEUTROPHILS 0
[2018-07-14 19:33] VITALS: BP 142/52
[2018-07-15 03:33] VITALS: BP 161/46
[2018-07-15 05:53] LABS: CALCIUM 7.1 mg/dL (8.5-10.1); PHOSPHORUS 3.2 mg/dL (2.5-4.9); POTASSIUM 5.1 mmol/L (3.5-5.1)
[2018-07-15 05:54] LABS: CREATININE 3.3 mg/dL (0.6-1.0)
--- NOTE | 2018-07-15 07:05 | NUR ---
PROGRESS PT A/O X4, UP W/1 GB AND WALKER. REMAINS ON BLEEDING PRECAUTIONS. TELEMETRY INTACT READING SB/SR NO EPISODES OF AFIB NOTED THIS SHIFT. PT C/O OF LEFT HAND PAIN RATED IT AN 8 TO A 10 TAKING TRAMADOL Q4HRS AND HAD ONE DOSE OF 4 MG OF MORPHINE WITH SOME EFFECT. CONTINUE POC.
[2018-07-15 07:48] VITALS: BP 177/69
[2018-07-15 08:53] LABS: SOURCE RIGHT THORACENTESIS
[2018-07-15 12:22] VITALS: BP 154/60
--- NOTE | 2018-07-15 14:52 | NUR ---
CARE TEAM INDICATED THAT PT IS PROGRESSING TOWARD GOAL OF DISHCARGE. PT IS SCHEDULED FOR DIALYSIS TOMORROW. CM TO FOLLOW INDICATED WITH DC PLANNING.
[2018-07-15 15:07] LABS: BODY FLUID ALBUMIN 0.8 g/dL (()); BODY FLUID AMYLASE 57 U/L (()); BODY FLUID GLUCOSE 65 mg/dL (()); BODY FLUID LDH 79 IU/L (()); BODY FLUID PROTEIN 2.3 g/dL (())
--- NOTE | 2018-07-15 15:47 | NUR ---
ASSUMED CARE 0700. ALERT X4, PAIN MANAGED WITH MEDICATIONS, UP WITH ASSISTX1 DOES NOT URINATE DIALYSIS MWF, DIALYSIS ORDER FOR 07/16/18, BS WNL FOR AM AND NOON MEAL, DECLINES ICE FOR PAIN MANAGEMENT. FALL PRECAUTIONS IN PLACE. USES CALL LIGHT APPROPRIATELY
[2018-07-15 20:32] VITALS: BP 160/65
[2018-07-16 02:43] VITALS: BP 159/60
[2018-07-16 07:27] VITALS: BP 163/69
[2018-07-16 13:10] VITALS: BP 163/69
[2018-07-16 14:49] VITALS: BP 143/68
[2018-07-16] MEDS ORDERED: PEPCID20 MG PO (15:18)
[2018-07-16] MEDS ORDERED: CEFUROXIME500 MG PO (15:18)
[2018-07-16] MEDS ORDERED: TUMS PO (15:18)
--- NOTE | 2018-07-16 16:03 | NUR ---
CARE TEAM INDICATED THAT PT IS MEDICALLY STABLE TO DISCHARGE HOME THIS DAY. REFERRAL HAD BEEN SENT TO [facility] UPON [place]. CM TO FAX FLOW SHEETS TO [facility] FOR PT TO RESUME HEMODIALYSIS SATURDAY. PT HAS ALL RECOMMENDED DME. NO OTHER CM INTERVENTION INDICATED AT THIS TIME. CASE CLOSED.
--- NOTE | 2018-07-16 16:04 | NUR ---
DISCHARGE ORDERS RECEIVED. PATIENT DISCHARGING TO HOME WITH [facility]. DISCHARGE/HOME HEALTH ORDERS AND DISCHARGE SUMMARY FAXED TO [facility]. [facility] NOTIFIED OF PATIENTS DISCHARGE AND ORDERS FAXED, WILL FACILITATE PATIENTS HOME HEALTH NEEDS. UNIT CM/DIAN AWARE.
--- NOTE | 2018-07-16 18:51 | NUR ---
PT A&OX4, VSS, PAIN IN LEFT HAND AND MANAGED WITH MEDICATION. PT HAD DIALYSIS TODAY 1L REMOVED. NO SIGNS OF DISTRESS OR BLEEDING. PT UP IN BED AND TOLERATING DIET. WILL CONTINUE TO MONITOR.
--- NOTE | 2018-07-16 20:58 | NUR ---
PT LEFT WITH DAUGHTER. VSS. IV AND TELE REMOVED PREVIOUS SHIFT. NO S/S ACUTE DISTRESS NOTED OR REPORTED UPON DEPARTURE. ALL BELONGINGS SENT WITH THE PATIENT.
--- NOTE | 2018-07-17 11:12 | PATH ---
[facility] [address] [place] [address] PATHOLOGY RPT PROCEDURE Name: PERNELL PEREZ Room #: 451-P [facility] IN M.R.#: [id number] ������������������ Admission: 07/11/18 ������������������ Date of : 51 Discharge: 07/16/18 Report #: [id number] Path Case #: [id number] Note [facility] Accession Number: [id number] TESTS RESULT FLAG UNITS REF RANGE LAB Clinician Provided Cytology Information No. of containers..01 Other (Miscellaneous) Source: RIGHT PLEUAL FLUID DIAGNOSIS: 02 RIGHT PLEUAL FLUID NEGATIVE FOR MALIGNANT CELLS. MESOTHELIAL CELLS ARE PRESENT. THIS INTERPRETATION INCLUDES EVALUATION OF A CELL BLOCK. MODERATE CHRONIC INFLAMMATION. Pathologist ICD10: 02 J91.8 Signed out by: Lisset Cook MD, Pathologist NPI- [id number] Performed by: Remy Urrutia, Clarifying Plant Operator ([facility]) Gross description: 01 25ML, GIUSEPPE, CLOUDY /LCS FLAG LEGEND: L-Low Normal,H-High Normal,LL-Alert Low,HH-Alert High <-Panic Low,>-Panic High,A-Abnormal,AA-Critical Abnormal Performed at: [address] [place] [address] Brenden Infante MD, [address] [place] [phone] Lisset Cook MD, Specimen Comment: A courtesy copy of this report has been sent to Specimen Comment: [phone]. Specimen Comment: Report sent to Performed at: [address], [place], [place] [id number] MD Brenden Infante MD Phone: [phone]
== END 2018-07-16 20:59 | disposition home health service (06) | DRG 371 ==
LOC: ER 00:11 → 4W 03:20 → EROBS 03:20 → 4W 03:21
PROVIDERS: Internal Medicine Nephrology; Nurse Practitioner Family; Radiology Diagnostic Radiology; Student in an Organized Health Care Education/Training Program; ADMIT Internal Medicine
PROC: 5A1D70Z Performance of Urinary Filtration, Intermittent, Less than 6 Hours Per Day (ICD-10-PCS; principal; 2018-07-11)
PROC: 5A1D70Z Performance of Urinary Filtration, Intermittent, Less than 6 Hours Per Day (ICD-10-PCS; 2018-07-13)
PROC: 0W993ZZ Drainage of Right Pleural Cavity, Percutaneous Approach (ICD-10-PCS; 2018-07-14)
PROC: 5A1D70Z Performance of Urinary Filtration, Intermittent, Less than 6 Hours Per Day (ICD-10-PCS; 2018-07-15)
DX: K65.2 Spontaneous bacterial peritonitis (principal); N18.6 End stage renal disease; J91.8 Pleural effusion in other conditions classified elsewhere; E87.1 Hypo-osmolality and hyponatremia; R18.8 Other ascites; K92.2 Gastrointestinal hemorrhage, unspecified; B18.2 Chronic viral hepatitis C; D63.8 Anemia in other chronic diseases classified elsewhere; J44.9 Chronic obstructive pulmonary disease, unspecified; F17.200 Nicotine dependence, unspecified, uncomplicated; I25.10 Atherosclerotic heart disease of native coronary artery without angina pectoris; K74.60 Unspecified cirrhosis of liver; E11.42 Type 2 diabetes mellitus with diabetic polyneuropathy; E11.22 Type 2 diabetes mellitus with diabetic chronic kidney disease; R26.81 Unsteadiness on feet; Z96.651 Presence of right artificial knee joint; S62.611A Displaced fracture of proximal phalanx of left index finger, initial encounter for closed fracture; S62.613A Displaced fracture of proximal phalanx of left middle finger, initial encounter for closed fracture; S62.615A Displaced fracture of proximal phalanx of left ring finger, initial encounter for closed fracture; X58.XXXA Exposure to other specified factors, initial encounter; W19.XXXA Unspecified fall, initial encounter; Y93.89 Activity, other specified; Z95.5 Presence of coronary angioplasty implant and graft; Z86.718 Personal history of other venous thrombosis and embolism; Z86.73 Personal history of transient ischemic attack (TIA), and cerebral infarction without residual deficits; Y92.89 Other specified places as the place of occurrence of the external cause; Z88.8 Allergy status to other drugs, medicaments and biological substances; Z90.710 Acquired absence of both cervix and uterus; Y99.8 Other external cause status; Z79.899 Other long term (current) drug therapy; Z90.49 Acquired absence of other specified parts of digestive tract; Z11.51 Encounter for screening for human papillomavirus (HPV)
CPT/HCPCS: 10045; 32100

== ENCOUNTER 2018-07-22 04:51 | Inpatient (IN) | payer OTHER ==
[~2018-07-22] VITALS: Ht 157.5 cm; Wt 58.7 kg
[~2018-07-22 04:51] MED LIST changes: +CEFUROXIME500 MG PO; +PEPCID20 MG PO
[2018-07-22 04:52] VITALS: BP 161/71
[2018-07-22] MEDS ORDERED: NORCO 5-325 TA1 EACH PO (05:05)
[2018-07-22 05:28] LABS: CALCIUM 7.6 mg/dL (8.5-10.1); CREATININE 3.3 mg/dL (0.6-1.0); POTASSIUM 4.6 mmol/L (3.5-5.1)
[2018-07-22 05:29] LABS: HEMOGLOBIN 8.2 gm/dL (12.0-15.0); MCHC 32.8 g/dL (28.0-37.0); MCV 91.2 fL (80.0-100.0); PLATELET COUNT 252 thou/uL (150-400); RBC 2.74 mil/uL (4.20-5.00); RDW 16.1 % (10.5-14.5); WBC 5.2 thou/uL (4.0-11.0)
[2018-07-22 05:38] LABS: APTT 22.6 Seconds (24.5-32.8); PROTIME 10.9 Seconds (9.3-11.4)
[2018-07-22 05:43] LABS: ALBUMIN 2.2 g/dL (3.4-5.0); DIRECT BILIRUBIN 0.1 mg/dL (<0.1-0.3); TOTAL BILIRUBIN 0.2 mg/dL (<0.1-1.0); TOTAL PROTEIN 7.4 g/dL (6.4-8.2)
[2018-07-22 06:57] LABS: ABSOLUTE NEUTROPHILS 3.8 thou/uL (1.4-8.2); ANISOCYTOSIS 1+
[2018-07-22 08:13] VITALS: BP 156/70
--- NOTE | 2018-07-22 08:14 | EKG ---
[address] [address] ELECTROCARDIOGRAM REPORT Name: PERNELL PEREZ Room #: 170-9 ADM IN M.R.#: [id number] ������������������ Admission: 07/22/18 ������������������ Attend Phys: Ron Daly MD Discharge: ������������������ Date of : 51 Report #: [id number] ����������������������������������������������������������������� [id number] THIS REPORT FOR: //name// [facility] ED Test Date: 2018-07-22 Test Time: 04:58:17 Pat Name: PERNELL PEREZ Department: Room: 170 Gender: F Industrial Hygiene Manager: robert : 1955 Requested By: Magdalena Real Order Number: [id number] MD: Saul Johnson Measurements Intervals [place] Rate: 87 P: 38 ME: 164 QRS: 32 QRSD: 88 T: 27 QT: 403 QTc: 485 Interpretive Statements Sinus rhythm Consider left ventricular hypertrophy Compared to ECG 07/11/2018 00:59:55 ST (T wave) deviation no longer present Electronically Signed On 07-22-2018 8:14:22 CDT by Saul Johnson [email or web address] ��������������������������������������������� <ELECTRONICALLY SIGNED> ���������������������������������������� By: Saul Johnson MD ��������������������������������������������� 07/22/18 0814 0458 0458 Saul Johnson MD /ANDIE
[2018-07-22 08:16] VITALS: BP 143/74
[2018-07-22 09:19] VITALS: BP 157/54
--- NOTE | 2018-07-22 13:45 | NUR ---
ASSESSMENT-PT LIVES IN AN APT ALONE. HER SISTER LIVES IN THE SAME BUILDING. SHE HAS HBCS 3.5HRS/7 DAYS A WEEK. PT USES [employer] [facility]SPORT TO GO TO AND FROM [facility] ON -W- 1015 SHIFT. PT USES A WALKER OR A WC TO GET AROUND. PT HAS ASSIST WITH COOKING, CLEANING AND LAUNDRY. PT WAS DISCHARGED HOME ON 07/16/18 AND [facility] WAS TO FOLLOW BUT PT SAYS SHE HAS NOT MADE CONNECTIONS WITH THEM YET FOR A VISIT. PT HAD A FALL AT HOME. PT SAYS SHE HAS AN ADV DIR AT HOME AND ASKED HER TO BRING A COPY NEXT TIME [facility]. FOLLOWING TO ASSIST WITH DC PLANNING.
--- NOTE | 2018-07-22 13:46 | NUR ---
ASSUMED CARE AT 0830, SHIFT ASSESSMENT DONE, MEDS GIVEN, ADMISSION DONE, MED REC UPDATED. WENT FOR PARACENTESIS AT 1345. WILL CONTINUE TO ASSESS AND ASSIST WITH ADLs NEEDED.
[2018-07-22 16:45] VITALS: BP 154/62
--- NOTE | 2018-07-22 17:17 | NUR ---
CAME BACK FROM PARACENETESIS AT 1500, 4.8 L FLUID WAS TAKEN OFF. REPORTED PAIN, PRN PAIN MED GIVEN. SITE HAS PRESSURE DRESSING ON, C/D/I. CAN COME OFF TOMORROW.
[2018-07-22 22:10] VITALS: BP 163/53
[2018-07-23 07:30] VITALS: BP 159/56
--- NOTE | 2018-07-23 07:32 | NUR ---
ASSUMED PT CARE 1899. PT ALERT ND ORIENTED. VSS. PT DENIES N/V. PT REPORTS PAIN, SEE EMAR. IV DRESSING C/D/I, NO SIGNS OF INFILTRATION. REPORT GIVEN TO AM NURSE.
--- NOTE | 2018-07-23 10:32 | HC ---
[facility] [place] [address] CONSULTATION Name: PERNELL PEREZ Room #: 430-P ADM IN M.R.#: [id number] Admission: 07/22/18 ������������������ Attend Phys: Ron Daly MD Discharge: ������������������ Date of : 51 Report #: [id number] THIS REPORT FOR: //name// CC: Ron Boswell DATE OF SERVICE: 07/22/2018 ATTENDING PHYSICIAN: Dr. Daly. REASON FOR CONSULTATION: End-stage renal disease. HISTORY OF PRESENT ILLNESS: This patient, extremely well known to our service, was recently discharged from this hospital after a several-day stay for abdominal pain and diarrhea. At that time, she gradually improved with treatment for spontaneous bacterial peritonitis. She was sent home with antibiotics. She did reasonably well, but developed severe constipation and went to a hospital in [place]. She was admitted overnight. She was given laxatives, had a large bowel movement and then proceeded to have diarrhea until yesterday. She developed abdominal distention and pain. The pain became severe and she came to the Emergency Room here. PAST MEDICAL HISTORY: Severe chronic obstructive pulmonary disease with ongoing tobacco abuse, end-stage renal disease with longstanding diabetes. She has cirrhosis, hepatitis C, diffuse peripheral arterial disease, recurrent right pleural effusions and she has had recent cholecystectomy about 6 or 7 weeks ago and since that time, she has had severe intermittent diarrhea, constipation, abdominal pain and discomfort. She also has cardiac disease, multiple code blue cardiac arrests, but preserved left ventricular function. She has had ongoing issues with AVMs and GI bleeding and has been treated intermittently with Sandostatin. PAST SURGICAL HISTORY: Also includes left upper extremity dialysis fistula, left rotator cuff repair, hysterectomy, arthroscopic surgery on her right knee. ALLERGIES: REPORTEDLY TO ACYCLOVIR, FLUOXETINE, GABAPENTIN, ROBAXIN AND ESTROGENS. FAMILY HISTORY: No renal disease. SOCIAL HISTORY: She is a smoker and continues to smoke. No alcohol. REVIEW OF SYSTEMS: GENERAL: She continues to feel poorly. She is weak. EYES: She has got poor vision. ENT: Hearing okay, swallows okay. Denies mouth sores or ulcers. [facility] [address] [place] [address] CONSULTATION Name: PERNELL PEREZ Room #: 430-P [facility] IN M.R.#: [id number] Admission: 07/22/18 ������������������ Attend Phys: Ron Daly MD Discharge: ������������������ Date of : 51 Report #: [id number] ENDOCRINE: Positive for diabetes and hypothyroidism, on replacement. RESPIRATORY: She becomes easily short-winded, no pleuritic pain or hemoptysis. CARDIAC: No chest pain, angina or leg swelling. GASTROINTESTINAL: She has had the abdominal distention, abdominal pain, the diarrhea which is now resolved. GENITOURINARY: Very little urine. No dysuria. NEUROLOGIC: General weakness, can walk with a walker. PHYSICAL EXAMINATION: GENERAL: Chronically ill-appearing patient, looking much older than her stated age. SKIN: No lesions are noted. SKELETAL: No amputations. No joint deformities. HEENT: Extraocular movements are full and there is no scleral icterus. Hearing and vision are intact. Mucous membranes are slightly dry. NECK: Veins are flat. CHEST: Clear to auscultation with some diminished breath sounds at the right base. HEART: Regular rate and rhythm. ABDOMEN: Distended, firm, slightly tender. Bowel sounds diminished. EXTREMITIES: Show no peripheral edema. Peripheral pulses are decreased. LABORATORY DATA: Hemoglobin 8.2, white count 5.2, platelets 252. INR 1.0. Sodium 140, potassium 4.6, chloride 102, bicarbonate 34, BUN 28, creatinine 3.3. AST slightly elevated, ALT slightly depressed. Alkaline phosphatase slightly elevated. Albumin 2.2. ASSESSMENT AND PLAN: 1. Abdominal distention and pains with intermittent diarrhea. Still unclear as to why she is having so much trouble in the GI tract. She has been evaluated for intestinal ischemia and that evaluation was negative. Question as to whether those studies need to be repeated. Further x-rays per the GI service at this time. So far no radiologic studies have been ordered. Pending results of radiologic studies, further testing would be indicated. 2. End-stage renal disease. Will continue on 3 times weekly dialysis. 3. Recurrent right pleural effusions. 4. Chronic obstructive pulmonary disease with cigarette smoking. 5. Status post multiple cardiac arrests with preserved left ventricular function. 6. Cirrhosis with hepatitis C by history. ��������������������������������������������� <ELECTRONICALLY SIGNED> ���������������������������������������� By: Lucho Rehman MD ��������������������������������������������� 07/23/18 1032 0737 2236 Lucho Rehman MD /nt
[2018-07-23 10:57] VITALS: BP 159/56
--- NOTE | 2018-07-23 14:21 | NUR ---
Assumed pt care at 7am.Pt left for hemodialysis at the beginning of shift and returned to room 4 hours later.Assessment completed.Pt was upset for not given pain rx by Dr Gordon.She said her load dropper refused to give her too.She wanted to change pcp.public events facilities rental manager notified for assist.Dr Gordon rounded on pt and dc summary completed and reviewed with pt.Saline lock dc'd.Pt will be dc home this afternoon by 1500.Will continue to monitor.
--- NOTE | 2018-07-23 15:43 | NUR ---
PT UPSET AND CRYING SAYING SHE HAS NO PAIN MEDS AT HOME FOR HER BROKEN WRIST. PT HAS A SPLIT ON HER LEFT WRIST. SHE SAYS SHE HAD AN APPT WITH DR FRANCOIS YESTERDAY BUT WAS HER IN THE HOSPITAL. S/W DR SINGLETON OFFICE AND THEY HAVE AN OPENING ON FRI BUT THAT IS PT'S DIALYSIS DAY AND SHE CANNOT CHANGE HER TRANSPORT FOR DIALYSIS. MADE AN APT FOR HER FOR AT 0930. S/W JIMMY [facility] [employer] ERECTOR AND DR MIJARES MAY BE IN THE CLINIC ON SAT. FAXED FLOW SHEET, DC SUMMARY FROM LAST ADM AND THIS ADM AND BOTH H&P'S ALSO. ENCOURAGED PT TO FOLLOW-UP WITH HER PRIMARY CARE DR FOR PAIN MEDS. S/W DR HARDEN AND HE IS NOT WILLING TO ORDER ANY PAIN MEDS FOR PT AT [facility] TIME. PT SAYS SHE WAS DISCHARGED LAST WEEK WITH ONLY 3 DAYS OF PAIN MEDS.
== END 2018-07-23 15:25 | disposition home or self-care (01) | DRG 432 ==
LOC: ER 04:51 → EROBS 06:14 → 4E 06:14
PROVIDERS: Emergency Medicine; ADMIT Hospitalist
PROC: 0W9G3ZZ Drainage of Peritoneal Cavity, Percutaneous Approach (ICD-10-PCS; principal; 2018-07-22)
DX: K74.69 Other cirrhosis of liver (principal); N18.6 End stage renal disease; R18.8 Other ascites; J91.8 Pleural effusion in other conditions classified elsewhere; I50.32 Chronic diastolic (congestive) heart failure; E46 Unspecified protein-calorie malnutrition; Z96.651 Presence of right artificial knee joint; K57.90 Diverticulosis of intestine, part unspecified, without perforation or abscess without bleeding; E78.5 Hyperlipidemia, unspecified; E11.42 Type 2 diabetes mellitus with diabetic polyneuropathy; E11.22 Type 2 diabetes mellitus with diabetic chronic kidney disease; E03.9 Hypothyroidism, unspecified; I25.10 Atherosclerotic heart disease of native coronary artery without angina pectoris; F17.210 Nicotine dependence, cigarettes, uncomplicated; J44.9 Chronic obstructive pulmonary disease, unspecified; Z86.718 Personal history of other venous thrombosis and embolism; Z95.5 Presence of coronary angioplasty implant and graft; Z90.49 Acquired absence of other specified parts of digestive tract; Z79.899 Other long term (current) drug therapy; Z86.73 Personal history of transient ischemic attack (TIA), and cerebral infarction without residual deficits; Z88.8 Allergy status to other drugs, medicaments and biological substances; Z68.23 Body mass index [BMI] 23.0-23.9, adult; Z90.710 Acquired absence of both cervix and uterus; Z83.3 Family history of diabetes mellitus; Z82.49 Family history of ischemic heart disease and other diseases of the circulatory system; Z87.81 Personal history of (healed) traumatic fracture
CPT/HCPCS: 10084

== ENCOUNTER 2018-07-27 00:58 | Emergency (ER) | payer OTHER ==
[~2018-07-27] VITALS: Ht 157.5 cm; Wt 56.7 kg
[2018-07-27 02:14] LABS: ABSOLUTE NEUTROPHILS 2.7 thou/uL (1.4-8.2); BASOPHILS 1.6 % (0.0-2.0); HEMATOCRIT 27.3 % (37.0-47.0); HEMOGLOBIN 8.8 gm/dL (12.0-15.0); LYMPHOCYTES 26.1 % (24.0-44.0); MCH 29.1 pg (26.0-34.0); MCHC 32.2 g/dL (28.0-37.0); MCV 90.3 fL (80.0-100.0); MONOCYTES 11.1 % (1.0-8.0); PLATELET COUNT 259 thou/uL (150-400); POLYS 57.2 % (36.0-66.0); RBC 3.02 mil/uL (4.20-5.00); RDW 16.1 % (10.5-14.5); WBC 4.7 thou/uL (4.0-11.0)
[2018-07-27 02:16] LABS: CALCIUM 8.3 mg/dL (8.5-10.1); CREATININE 3.8 mg/dL (0.6-1.0); POTASSIUM 4.7 mmol/L (3.5-5.1)
[2018-07-27 02:22] LABS: ALBUMIN 2.4 g/dL (3.4-5.0); TOTAL BILIRUBIN 0.3 mg/dL (<0.1-1.0)
[2018-07-27 03:03] LABS: APTT 19.6 Seconds (24.5-32.8); PROTIME 10.2 Seconds (9.3-11.4)
[2018-07-27] MEDS ORDERED: ONDANSETRON ODT8 MG PO (04:38)
[2018-07-27 04:44] VITALS: BP 176/56
--- NOTE | 2018-07-27 10:38 | EKG ---
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 : 1955 Requested By: Yong Kwan Order Number: [id number] MD: Arnold Leal Measurements Intervals [place] Rate: 86 P: 40 PA: 137 QRS: 44 QRSD: 95 T: 65 QT: 402 QTc: 481 Interpretive Statements Sinus rhythm Borderline low voltage, extremity leads Poor R-wave progression Nonspecific ST segment abnormalities Compared to ECG 07/22/2018 04:58:17 Electronically Signed On 07-27-2018 10:38:19 CDT by Arnold Leal [email or web address] ��������������������������������������������� <ELECTRONICALLY SIGNED> ���������������������������������������� By: Arnold Leal MD ��������������������������������������������� 07/27/18 1038 0254 0254 MD MARTÍNEZ Lag[place]
[2018-07-28] MEDS ORDERED: NORCO 5-325 TA1 EACH PO ×2 (13:33→16:04)
[2018-07-28] MEDS ORDERED: ATORVASTATIN CA40 MG PO (13:34)
[2018-07-28] MEDS ORDERED: NORVASC5 MG PO (13:34)
[2018-07-28] MEDS ORDERED: MYNEPHRON CAPSUL1 MG PO (13:35)
[2018-07-28] MEDS ORDERED: WELLBUTRIN SR150 MG PO (13:36)
[2018-07-28] MEDS ORDERED: GENTEAL TEARS 015 ML OPHTHALMIC (13:37)
[2018-07-28] MEDS ORDERED: LOMOTIL TABLET1 EACH PO (13:38)
[2018-07-28] MEDS ORDERED: REMERON15 MG PO (13:40)
[2018-07-28] MEDS ORDERED: PAXIL10 MG PO (13:41)
[2018-07-28] MEDS ORDERED: REQUIP 1 MG TABL1 M1 PO (13:42)
[2018-07-28] MEDS ORDERED: GAS RELIEF80 MG PO (13:43)
[2018-07-28] MEDS ORDERED: TRAMADOL 50 MG50 MG PO (13:44)
[2018-07-28] MEDS ORDERED: CHANTIX0.5 MG PO (13:45)
== END 2018-07-27 04:44 | disposition home or self-care (01) ==
LOC: ER 00:58
PROVIDERS: Emergency Medicine
DX: K85.90 Acute pancreatitis without necrosis or infection, unspecified (principal); E88.09 Other disorders of plasma-protein metabolism, not elsewhere classified; E11.22 Type 2 diabetes mellitus with diabetic chronic kidney disease; N18.6 End stage renal disease; D63.1 Anemia in chronic kidney disease; Z99.2 Dependence on renal dialysis; G89.29 Other chronic pain; I50.30 Unspecified diastolic (congestive) heart failure; B19.20 Unspecified viral hepatitis C without hepatic coma; E03.9 Hypothyroidism, unspecified; J44.9 Chronic obstructive pulmonary disease, unspecified; E11.42 Type 2 diabetes mellitus with diabetic polyneuropathy; I25.10 Atherosclerotic heart disease of native coronary artery without angina pectoris; F17.210 Nicotine dependence, cigarettes, uncomplicated; Z86.718 Personal history of other venous thrombosis and embolism; Z87.19 Personal history of other diseases of the digestive system; Z86.74 Personal history of sudden cardiac arrest; Z90.49 Acquired absence of other specified parts of digestive tract; Z90.710 Acquired absence of both cervix and uterus; Z79.899 Other long term (current) drug therapy; Z88.8 Allergy status to other drugs, medicaments and biological substances

== ENCOUNTER 2018-07-28 12:07 | Emergency (ER) | payer OTHER ==
[~2018-07-28] VITALS: Ht 157.5 cm; Wt 56.7 kg
[~2018-07-28 12:07] MED LIST changes: +ONDANSETRON ODT8 MG PO
[2018-07-28 12:42] LABS: ABSOLUTE NEUTROPHILS 3.2 thou/uL (1.4-8.2); EOSINOPHILS 5.3 % (0.0-3.0); HEMATOCRIT 26.4 % (37.0-47.0); HEMOGLOBIN 8.3 gm/dL (12.0-15.0); LYMPHOCYTES 22.8 % (24.0-44.0); MCH 28.3 pg (26.0-34.0); MCHC 31.4 g/dL (28.0-37.0); MCV 90.1 fL (80.0-100.0); MONOCYTES 11.7 % (1.0-8.0); PLATELET COUNT 189 thou/uL (150-400); POLYS 59.2 % (36.0-66.0); RBC 2.93 mil/uL (4.20-5.00); RDW 15.8 % (10.5-14.5); WBC 5.4 thou/uL (4.0-11.0)
[2018-07-28 12:56] LABS: PROTIME 10.2 Seconds (9.3-11.4)
[2018-07-28 13:04] LABS: CALCIUM 7.7 mg/dL (8.5-10.1); CREATININE 4.1 mg/dL (0.6-1.0)
[2018-07-28 13:10] LABS: ALBUMIN 2.2 g/dL (3.4-5.0); DIRECT BILIRUBIN 0.1 mg/dL (<0.1-0.3); TOTAL BILIRUBIN 0.3 mg/dL (<0.1-1.0); TOTAL PROTEIN 7.5 g/dL (6.4-8.2)
[2018-07-28] MEDS ORDERED: NORCO 5-325 TA1 EACH PO ×2 (13:33→16:04)
[2018-07-28] MEDS ORDERED: NORVASC5 MG PO (13:34)
[2018-07-28] MEDS ORDERED: ATORVASTATIN CA40 MG PO (13:34)
[2018-07-28] MEDS ORDERED: MYNEPHRON CAPSUL1 MG PO (13:35)
[2018-07-28] MEDS ORDERED: WELLBUTRIN SR150 MG PO (13:36)
[2018-07-28] MEDS ORDERED: GENTEAL TEARS 015 ML OPHTHALMIC (13:37)
[2018-07-28] MEDS ORDERED: LOMOTIL TABLET1 EACH PO (13:38)
[2018-07-28] MEDS ORDERED: REMERON15 MG PO (13:40)
[2018-07-28] MEDS ORDERED: PAXIL10 MG PO (13:41)
[2018-07-28] MEDS ORDERED: REQUIP 1 MG TABL1 M1 PO (13:42)
[2018-07-28] MEDS ORDERED: GAS RELIEF80 MG PO (13:43)
[2018-07-28] MEDS ORDERED: TRAMADOL 50 MG50 MG PO (13:44)
[2018-07-28] MEDS ORDERED: CHANTIX0.5 MG PO (13:45)
[2018-07-28 16:15] VITALS: BP 152/66
== END 2018-07-28 16:18 | disposition home or self-care (01) ==
LOC: ER 12:07
PROVIDERS: Emergency Medicine
DX: K74.60 Unspecified cirrhosis of liver (principal); R18.8 Other ascites; G89.29 Other chronic pain; K75.9 Inflammatory liver disease, unspecified; F17.210 Nicotine dependence, cigarettes, uncomplicated; E11.9 Type 2 diabetes mellitus without complications; E11.22 Type 2 diabetes mellitus with diabetic chronic kidney disease; N18.6 End stage renal disease; I50.32 Chronic diastolic (congestive) heart failure; E03.9 Hypothyroidism, unspecified; J44.9 Chronic obstructive pulmonary disease, unspecified; E11.40 Type 2 diabetes mellitus with diabetic neuropathy, unspecified; I25.10 Atherosclerotic heart disease of native coronary artery without angina pectoris; Z86.2 Personal history of diseases of the blood and blood-forming organs and certain disorders involving the immune mechanism; Z86.718 Personal history of other venous thrombosis and embolism; Z90.710 Acquired absence of both cervix and uterus; Z86.73 Personal history of transient ischemic attack (TIA), and cerebral infarction without residual deficits; Z88.8 Allergy status to other drugs, medicaments and biological substances; Z90.49 Acquired absence of other specified parts of digestive tract

== ENCOUNTER 2018-07-30 23:22 | Emergency (ER) | payer OTHER ==
[~2018-07-30] VITALS: Ht 157.5 cm; Wt 56.7 kg
[~2018-07-30 23:22] MED LIST changes: +GAS RELIEF80 MG PO; +GENTEAL TEARS 015 ML OPHTHALMIC; +MYNEPHRON CAPSUL1 MG PO; +REQUIP 1 MG TABL1 M1 PO; +WELLBUTRIN SR150 MG PO
[2018-07-30 23:45] LABS: ABSOLUTE NEUTROPHILS 4.1 thou/uL (1.4-8.2); EOSINOPHILS 2.6 % (0.0-3.0); HEMATOCRIT 24.2 % (37.0-47.0); HEMOGLOBIN 7.8 gm/dL (12.0-15.0); LYMPHOCYTES 17.3 % (24.0-44.0); MCH 28.3 pg (26.0-34.0); MCHC 32.2 g/dL (28.0-37.0); MCV 87.9 fL (80.0-100.0); MONOCYTES 9.6 % (1.0-8.0); PLATELET COUNT 195 thou/uL (150-400); POLYS 69.5 % (36.0-66.0); RBC 2.75 mil/uL (4.20-5.00); RDW 15.6 % (10.5-14.5); WBC 5.9 thou/uL (4.0-11.0)
[2018-07-30 23:51] LABS: CALCIUM 7.2 mg/dL (8.5-10.1); CREATININE 3.3 mg/dL (0.6-1.0); POTASSIUM 4.6 mmol/L (3.5-5.1)
[2018-07-30 23:57] LABS: ALBUMIN 2.1 g/dL (3.4-5.0); TOTAL BILIRUBIN 0.3 mg/dL (<0.1-1.0); TOTAL PROTEIN 7.1 g/dL (6.4-8.2)
[2018-07-31 02:25] VITALS: BP 129/77
== END 2018-07-31 02:26 | disposition home or self-care (01) ==
LOC: ER 23:22
PROVIDERS: Emergency Medicine
DX: K59.00 Constipation, unspecified (principal); F17.210 Nicotine dependence, cigarettes, uncomplicated; I50.30 Unspecified diastolic (congestive) heart failure; E11.9 Type 2 diabetes mellitus without complications; N18.6 End stage renal disease; E03.9 Hypothyroidism, unspecified; J44.9 Chronic obstructive pulmonary disease, unspecified; I25.10 Atherosclerotic heart disease of native coronary artery without angina pectoris; Z86.2 Personal history of diseases of the blood and blood-forming organs and certain disorders involving the immune mechanism; Z86.73 Personal history of transient ischemic attack (TIA), and cerebral infarction without residual deficits; Z88.8 Allergy status to other drugs, medicaments and biological substances; Z90.49 Acquired absence of other specified parts of digestive tract; Z86.718 Personal history of other venous thrombosis and embolism; Z90.710 Acquired absence of both cervix and uterus

== ENCOUNTER 2018-08-06 21:29 | Emergency (ER) | payer OTHER ==
[~2018-08-06] VITALS: Ht 160 cm; Wt 56.8 kg
[2018-08-06 23:18] LABS: EOSINOPHILS 2.8 % (0.0-3.0); HEMOGLOBIN 7.9 gm/dL (12.0-15.0); LYMPHOCYTES 20.7 % (24.0-44.0); MCH 28.8 pg (26.0-34.0); MCHC 33.1 g/dL (28.0-37.0); MONOCYTES 11.4 % (1.0-8.0); PLATELET COUNT 258 thou/uL (150-400); POLYS 64.1 % (36.0-66.0); RBC 2.76 mil/uL (4.20-5.00); RDW 16.9 % (10.5-14.5); WBC 6.2 thou/uL (4.0-11.0)
[2018-08-06 23:28] LABS: CALCIUM 8.1 mg/dL (8.5-10.1); CREATININE 2.9 mg/dL (0.6-1.0); POTASSIUM 3.4 mmol/L (3.5-5.1)
[2018-08-06 23:34] LABS: ALBUMIN 2.2 g/dL (3.4-5.0); TOTAL BILIRUBIN 0.3 mg/dL (<0.1-1.0); TOTAL PROTEIN 7.9 g/dL (6.4-8.2)
[2018-08-06 23:38] VITALS: BP 110/46
[2018-08-06] MEDS ORDERED: SENNA8.6 MG PO (23:39)
== END 2018-08-07 00:01 | disposition home or self-care (01) ==
LOC: ER 21:29
PROVIDERS: Student in an Organized Health Care Education/Training Program
DX: K59.00 Constipation, unspecified (principal); G89.29 Other chronic pain; R10.9 Unspecified abdominal pain; F17.210 Nicotine dependence, cigarettes, uncomplicated; I50.30 Unspecified diastolic (congestive) heart failure; E11.22 Type 2 diabetes mellitus with diabetic chronic kidney disease; N18.6 End stage renal disease; K74.60 Unspecified cirrhosis of liver; E03.9 Hypothyroidism, unspecified; J44.9 Chronic obstructive pulmonary disease, unspecified; G62.9 Polyneuropathy, unspecified; I25.10 Atherosclerotic heart disease of native coronary artery without angina pectoris; Z86.73 Personal history of transient ischemic attack (TIA), and cerebral infarction without residual deficits; Z86.2 Personal history of diseases of the blood and blood-forming organs and certain disorders involving the immune mechanism; Z88.8 Allergy status to other drugs, medicaments and biological substances; Z90.49 Acquired absence of other specified parts of digestive tract; Z86.718 Personal history of other venous thrombosis and embolism; Z90.710 Acquired absence of both cervix and uterus

== ENCOUNTER 2018-08-09 10:47 | Emergency (ER) | payer OTHER ==
[~2018-08-09] VITALS: Ht 157.5 cm; Wt 56.7 kg
[2018-08-09 11:39] LABS: HEMATOCRIT 24.1 % (37.0-47.0); HEMOGLOBIN 7.9 gm/dL (12.0-15.0); MCHC 32.6 g/dL (28.0-37.0); MCV 85.8 fL (80.0-100.0); PLATELET COUNT 253 thou/uL (150-400); RBC 2.81 mil/uL (4.20-5.00); RDW 16.5 % (10.5-14.5); WBC 5.7 thou/uL (4.0-11.0)
[2018-08-09 11:51] LABS: APTT 22.1 Seconds (24.5-32.8); PROTIME 10.7 Seconds (9.3-11.4)
[2018-08-09 11:58] LABS: CALCIUM 8.4 mg/dL (8.5-10.1); CREATININE 3.3 mg/dL (0.6-1.0); POTASSIUM 3.3 mmol/L (3.5-5.1)
[2018-08-09 12:03] LABS: ALBUMIN 2.1 g/dL (3.4-5.0); DIRECT BILIRUBIN 0.2 mg/dL (<0.1-0.3); TOTAL BILIRUBIN 0.4 mg/dL (<0.1-1.0); TOTAL PROTEIN 7.5 g/dL (6.4-8.2)
[2018-08-09 12:25] LABS: ABSOLUTE NEUTROPHILS 3.4 thou/uL (1.4-8.2)
[2018-08-09 12:26] LABS: ANISOCYTOSIS 1+
[2018-08-09 13:33] VITALS: BP 113/38
== END 2018-08-09 13:38 | disposition home or self-care (01) ==
LOC: ER 10:47
PROVIDERS: Emergency Medicine
DX: K74.60 Unspecified cirrhosis of liver (principal); G89.29 Other chronic pain; R18.8 Other ascites; J44.9 Chronic obstructive pulmonary disease, unspecified; I25.10 Atherosclerotic heart disease of native coronary artery without angina pectoris; E11.42 Type 2 diabetes mellitus with diabetic polyneuropathy; E11.22 Type 2 diabetes mellitus with diabetic chronic kidney disease; N18.6 End stage renal disease; I50.32 Chronic diastolic (congestive) heart failure; F17.210 Nicotine dependence, cigarettes, uncomplicated; Z88.8 Allergy status to other drugs, medicaments and biological substances; Z90.49 Acquired absence of other specified parts of digestive tract; Z86.73 Personal history of transient ischemic attack (TIA), and cerebral infarction without residual deficits; E03.9 Hypothyroidism, unspecified; Z86.718 Personal history of other venous thrombosis and embolism; Z90.710 Acquired absence of both cervix and uterus; Z86.2 Personal history of diseases of the blood and blood-forming organs and certain disorders involving the immune mechanism

== ENCOUNTER 2018-08-20 07:11 | Emergency (ER) | payer OTHER ==
[~2018-08-20] VITALS: Ht 160 cm; Wt 57.1 kg
[2018-08-20] MEDS ORDERED: ACETAMINOPHEN-1 EAC1 PO (07:25)
[2018-08-20 07:49] LABS: MCH 26.2 pg (26.0-34.0); MCHC 31.8 g/dL (28.0-37.0); MCV 82.6 fL (80.0-100.0); PLATELET COUNT 241 thou/uL (150-400); RBC 2.67 mil/uL (4.20-5.00); RDW 17.3 % (10.5-14.5); WBC 6.8 thou/uL (4.0-11.0)
[2018-08-20 07:58] LABS: CALCIUM 9.1 mg/dL (8.5-10.1); CREATININE 5.3 mg/dL (0.6-1.0); POTASSIUM 4.2 mmol/L (3.5-5.1)
[2018-08-20 08:05] LABS: ALBUMIN 2.2 g/dL (3.4-5.0); TOTAL BILIRUBIN 0.3 mg/dL (<0.1-1.0); TOTAL PROTEIN 7.4 g/dL (6.4-8.2)
[2018-08-20 08:33] LABS: APTT 21.2 Seconds (24.5-32.8); PROTIME 10.7 Seconds (9.3-11.4)
[2018-08-20 08:49] LABS: ABSOLUTE NEUTROPHILS 3.8 thou/uL (1.4-8.2); PLATELET ESTIMATE NORMAL
[2018-08-20 11:22] LABS: CLARITY SLIGHTLY CLOUDY; COLOR YELLOW; SOURCE LEFT PARACENTESIS; TOTAL VOLUME 60 mL
[2018-08-20 11:23] LABS: SOURCE LEFT PARACENTESIS
[2018-08-20 11:54] LABS: BF NUCLEATED CELLS 1232; BF RBC 2143
[2018-08-20 13:07] LABS: BF MACROPHAGE 56; BF NEUTROPHILS 4
[2018-08-20 13:08] LABS: BF COMMENTS MONOCYTES
[2018-08-20 13:25] VITALS: BP 134/53
[2018-08-21 08:14] LABS: BODY FLUID ALBUMIN 1.5 g/dL (()); BODY FLUID AMYLASE 35 U/L (()); BODY FLUID GLUCOSE 149 mg/dL (())
== END 2018-08-20 13:25 | disposition home or self-care (01) ==
LOC: ER 07:11
PROVIDERS: Emergency Medicine
DX: R18.8 Other ascites (principal); D64.9 Anemia, unspecified; K74.60 Unspecified cirrhosis of liver; K59.00 Constipation, unspecified; R06.00 Dyspnea, unspecified; I12.0 Hypertensive chronic kidney disease with stage 5 chronic kidney disease or end stage renal disease; E11.22 Type 2 diabetes mellitus with diabetic chronic kidney disease; N18.6 End stage renal disease; Z99.2 Dependence on renal dialysis; K92.2 Gastrointestinal hemorrhage, unspecified; I11.0 Hypertensive heart disease with heart failure; I50.30 Unspecified diastolic (congestive) heart failure; E03.9 Hypothyroidism, unspecified; J44.9 Chronic obstructive pulmonary disease, unspecified; E11.42 Type 2 diabetes mellitus with diabetic polyneuropathy; I25.10 Atherosclerotic heart disease of native coronary artery without angina pectoris; Z90.710 Acquired absence of both cervix and uterus; F17.210 Nicotine dependence, cigarettes, uncomplicated; Z91.09 Other allergy status, other than to drugs and biological substances

== ENCOUNTER 2018-08-23 16:11 | Emergency (ER) | payer OTHER ==
[~2018-08-23] VITALS: Ht 157.5 cm; Wt 56.7 kg
[~2018-08-23 16:11] MED LIST changes: +ACETAMINOPHEN-1 EAC1 PO
[2018-08-23] MEDS ORDERED: CYCLOPENTOLA1 %/2 M1 OTIC (18:13)
[2018-08-23 18:19] LABS: HEMATOCRIT 24.3 % (37.0-47.0); HEMOGLOBIN 7.6 gm/dL (12.0-15.0); MCH 25.7 pg (26.0-34.0); MCHC 31.5 g/dL (28.0-37.0); MCV 81.5 fL (80.0-100.0); RBC 2.98 mil/uL (4.20-5.00)
[2018-08-23 18:34] LABS: PROTIME 10.3 Seconds (9.3-11.4)
[2018-08-23 18:35] LABS: APTT 22.1 Seconds (24.5-32.8)
[2018-08-23 18:38] VITALS: BP 150/50
== END 2018-08-23 18:20 | disposition home or self-care (01) ==
LOC: ER 16:11
PROVIDERS: Emergency Medicine
DX: H21.01 Hyphema, right eye (principal); I50.30 Unspecified diastolic (congestive) heart failure; E11.22 Type 2 diabetes mellitus with diabetic chronic kidney disease; N18.6 End stage renal disease; E03.9 Hypothyroidism, unspecified; J44.9 Chronic obstructive pulmonary disease, unspecified; E11.42 Type 2 diabetes mellitus with diabetic polyneuropathy; Z90.710 Acquired absence of both cervix and uterus; Z90.49 Acquired absence of other specified parts of digestive tract; F17.210 Nicotine dependence, cigarettes, uncomplicated; Z88.8 Allergy status to other drugs, medicaments and biological substances

== ENCOUNTER 2018-08-26 03:55 | Emergency (ER) | payer OTHER ==
[~2018-08-26] VITALS: Ht 157.5 cm; Wt 54.4 kg
[~2018-08-26 03:55] MED LIST changes: +CYCLOPENTOLA1 %/2 M1 OTIC
[2018-08-26 04:46] LABS: BASOPHILS 0.6 % (0.0-2.0); EOSINOPHILS 3.6 % (0.0-3.0); HEMATOCRIT 21.5 % (37.0-47.0); LYMPHOCYTES 19.2 % (24.0-44.0); MCH 25.6 pg (26.0-34.0); MCHC 32.4 g/dL (28.0-37.0); MCV 79.1 fL (80.0-100.0); MONOCYTES 9.2 % (1.0-8.0); PLATELET COUNT 282 thou/uL (150-400); POLYS 67.4 % (36.0-66.0); RBC 2.72 mil/uL (4.20-5.00); RDW 17.5 % (10.5-14.5); WBC 8.9 thou/uL (4.0-11.0)
[2018-08-26 04:48] LABS: CALCIUM 8.7 mg/dL (8.5-10.1); CREATININE 7.1 mg/dL (0.6-1.0)
[2018-08-26 04:52] LABS: POTASSIUM 5.5 mmol/L (3.5-5.1)
[2018-08-26 09:20] VITALS: BP 132/59
== END 2018-08-26 12:20 | disposition home or self-care (01) ==
LOC: ER 03:55
PROVIDERS: Emergency Medicine
DX: N18.6 End stage renal disease (principal); E87.5 Hyperkalemia; D64.9 Anemia, unspecified; G89.29 Other chronic pain; R10.84 Generalized abdominal pain; Z99.2 Dependence on renal dialysis; F17.210 Nicotine dependence, cigarettes, uncomplicated; I50.30 Unspecified diastolic (congestive) heart failure; E11.22 Type 2 diabetes mellitus with diabetic chronic kidney disease; K74.60 Unspecified cirrhosis of liver; E03.9 Hypothyroidism, unspecified; J44.9 Chronic obstructive pulmonary disease, unspecified; G62.9 Polyneuropathy, unspecified; I25.10 Atherosclerotic heart disease of native coronary artery without angina pectoris; Z86.2 Personal history of diseases of the blood and blood-forming organs and certain disorders involving the immune mechanism; Z86.73 Personal history of transient ischemic attack (TIA), and cerebral infarction without residual deficits; Z88.7 Allergy status to serum and vaccine; Z88.8 Allergy status to other drugs, medicaments and biological substances; Z90.49 Acquired absence of other specified parts of digestive tract; Z86.718 Personal history of other venous thrombosis and embolism; Z90.710 Acquired absence of both cervix and uterus

== ENCOUNTER 2018-08-28 23:51 | Inpatient (IN) | payer OTHER ==
[~2018-08-28] VITALS: Ht 157.5 cm; Wt 53.2 kg
--- NOTE | ~2018-08-28 | HC ---
[facility] [address] [place] [address] CONSULTATION Name: PERNELL PEREZ Room #: 217-P ADM IN M.R.#: [id number] Admission: 08/29/18 ������������������ Attend Phys: Ron Daly MD Discharge: ������������������ Date of : 51 Report #: [id number] THIS REPORT FOR: //name// CC: Ron Boswell DATE OF SERVICE: 08/29/2018 REASON FOR CONSULTATION: End-stage renal disease. HISTORY OF PRESENT ILLNESS: This 62-year-old patient is well known to our service with multiple admissions to this hospital, multiple organ systems chronically failed, dialysis patient, was admitted with chest pain and shortness of air, did not have an elevated troponin, was admitted to the floor, was found to have severe anemia which is more or less chronic with hemoglobin of 6.6. She underwent a blood transfusion this morning. PAST MEDICAL HISTORY: Severe COPD, ongoing cigarette smoking, end-stage renal disease for several years, on dialysis, longstanding diabetes. She has cirrhosis due to hepatitis C, severe peripheral arterial disease, chronic right pleural effusion, chronic ascites, has had multiple code blue arrests, but preserved left ventricular function. She has had ongoing issues with AVMs and GI bleeding. She has had previous coronary artery disease documented with a coronary artery stent as well as the multiple previous code blue episodes. ALLERGIES: REPORTED TO ACYCLOVIR, FLUOXETINE, GABAPENTIN, ROBAXIN AND ESTROGENS. PAST SURGICAL HISTORY: Includes hysterectomy as well as her left upper extremity dialysis fistula, rotator cuff repair. She has had surgery on her right knee. FAMILY HISTORY: Negative for renal disease. SOCIAL HISTORY: Heavy smoker. No alcohol. REVIEW OF SYSTEMS: GENERAL: She has been doing poorly and worse of late. This is complicated by apparent narcotic dependence as well. EYES: Vision is poor. ENT: Hearing okay, swallows okay. No mouth sores. ENDOCRINE: Positive for diabetes and hypothyroidism, on replacement. RESPIRATORY: Easily short-winded, no pleuritic pain. CARDIAC: She has had the recent chest pain that is resolved. No leg swelling. GASTROINTESTINAL: She has had abdominal distention, frequent abdominal pain, occasional diarrhea. [facility] [address] [place] [address] CONSULTATION Name: PERNELL PEREZ Room #: 217-P [facility] IN M.R.#: [id number] Admission: 08/29/18 ������������������ Attend Phys: Ron Daly MD Discharge: ������������������ Date of : 51 Report #: [id number] GENITOURINARY: Makes very little urine. NEUROLOGIC: Generalized weakness. She does walk with a walker. MUSCULOSKELETAL: No arthritis. PHYSICAL EXAMINATION: GENERAL: This is a chronically ill-appearing patient, looking much older than her stated age. SKIN: She has got tattoos. SKELETAL: No amputations or joint deformities. HEENT: Extraocular movements are full. No scleral icterus. She has got a patch over her right eye. Vision otherwise intact. Mucous membranes are moist. NECK: Veins slightly distended. CHEST: Shows diminished breath sounds with bilateral rhonchi. HEART: Regular, but distant. ABDOMEN: Somewhat distended, nontender. EXTREMITIES: No peripheral edema. Peripheral pulses diminished. NEUROLOGIC: Grossly negative. LABORATORY DATA: Potassium is 4.5, creatinine is 6.1. Hemoglobin is 6.6, platelets 287. ASSESSMENT: 1. End-stage renal disease in need of dialysis. She appears to be somewhat volume overloaded. Orders are in. 2. Severe ongoing anemia, possibly will need to start Sandostatin again as she has had progressive anemia despite aggressive support at the dialysis unit. 3. Cirrhosis with ascites. She has been getting some paracentesis of late. 4. Coronary artery disease with previous coronary stent status post multiple code blue arrests. 5. Severe chronic obstructive pulmonary disease with ongoing cigarette smoking. 6. Severe peripheral arterial disease. ��������������������������������������������� ���������������������������������������� By: ��������������������������������������������� 1229 2140 Lucho Rehman MD /nt
[2018-08-28 23:53] VITALS: BP 141/43
[2018-08-29] VITALS (10 sets, daily range): BP systolic 125–173; BP diastolic 53–91
[2018-08-29 00:21] LABS: HEMOGLOBIN 6.6 gm/dL (12.0-15.0); RDW 17.5 % (10.5-14.5)
[2018-08-29 00:23] LABS: ABSOLUTE NEUTROPHILS 4.8 thou/uL (1.4-8.2); EOSINOPHILS 1.6 % (0.0-3.0); HEMATOCRIT 20.5 % (37.0-47.0); LYMPHOCYTES 19.9 % (24.0-44.0); MCH 25.3 pg (26.0-34.0); MCHC 32.1 g/dL (28.0-37.0); MCV 78.8 fL (80.0-100.0); MONOCYTES 10.3 % (1.0-8.0); PLATELET COUNT 287 thou/uL (150-400); POLYS 67.2 % (36.0-66.0); WBC 7.1 thou/uL (4.0-11.0)
[2018-08-29 00:30] LABS: ANION GAP 6 mmol/L (7-16); BUN 121 mg/dL (7-18); CALCIUM 8.2 mg/dL (8.5-10.1); CHLORIDE 98 mmol/L (98-107); CO2 36 mmol/L (21-32); GLUCOSE 214 mg/dL (74-106); POTASSIUM 4.5 mmol/L (3.5-5.1); SODIUM 140 mmol/L (136-145)
[2018-08-29 00:31] LABS: CREATININE 6.1 mg/dL (0.6-1.0)
[2018-08-29 00:39] LABS: TROPONIN-I <0.06 ng/mL (<0.06)
--- NOTE | 2018-08-29 01:45 | NUR ---
REPORT GIVEN TO MARY MILLS RN
--- NOTE | 2018-08-29 06:00 | NUR ---
PATIENT ARRIVED ON UNIT AT 0215 VIS CART FROM ED ACCOMPANIED BY ED PERSONEL. PATIENT ALERT AND ORIENTED X4. C/O PAIN, MED GIVEN. NO SKIN ISSUES. SLEPT OFF AND ON DURING NIGHT.
--- NOTE | 2018-08-29 08:28 | EKG ---
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: [email or web address] : 1955 Requested By: Munir Weiner Order Number: [id number] MD: Stephon Miranda Measurements Intervals [place] Rate: 74 P: 46 IA: 41 QRS: 34 QRSD: 103 T: 26 QT: 445 QTc: 494 Interpretive Statements Sinus rhythm Short IA interval Borderline prolonged QT interval Compared to ECG 07/27/2018 02:54:56 No significant change was found Electronically Signed On 08-29-2018 8:28:18 CDT by Stephon Miranda [email or web address] ��������������������������������������������� <ELECTRONICALLY SIGNED> ���������������������������������������� By: Stephon Miranda MD, [facility] ��������������������������������������������� 08/29/18 0828 Stephon Miranda MD, [facility] /EPI
--- NOTE | 2018-08-29 10:19 | NUR ---
Assess due to high nutrition risk trigger. Newly admitted with anemia. Hx ESRD/dialysis. Multiple admits in past. Usual wt had trended around 125-135 lb, then dropped to low of 115 lb. Now wts back up to 125 lb. Has no renal diet order, just heart healthy-will defer diet order to renal. Pt will usually drink Ensure Enlive-will order until intake trends established and adequate. Low nutrition risk
--- NOTE | 2018-08-29 12:38 | NUR ---
ASSESSMENT-PT LIVES IN AN APT ALONE. SHE USES MEDICAID TRANSPORT TO GO TO [facility] ON -- 2ND SHIFT. PT HAS A MEDICAID HOMEMAKER THAT COMES 3.5 HRS 7 DAYS A WEEK. PT SAYS SHE WAS SUPPOSED TO HAVE [facility] ABOUT A MONTH AGO AFTER HER FALL WHERE SHE BROKE HER LEFT WRIST AND THEY NEVER MADE CONNECTIONS SO SHE DID NOT HAVE ANY VISITS. PT SAYS SHE HAS AN APPT TO FOLLOW-UP WITH HER ORTHO DR ON . PT HAS 2 SISTERS. PT USES A CANE, WALKER OR WC TO GET AROUND. FOLLOWING TO ASSIST WITH DC PLANNING.
--- NOTE | 2018-08-29 13:00 | NUR ---
ASSUMED CARE OF PT AT 0700. ASSESSMENT CHARTED. PT A&O,X4, ANXIETY NOTED. C/O ABD, ARM PAIN, PAIN MEDS GIVEN ORDERED. C/O ITCHING, PHYSICIAN NOTIFIED. LOW HBG, 1 UNIT BLOOD TRANSFUSION STARTED AT 0900. PT REPORTING BURNING, ITCHING, DSYPNEA, CHEST PAIN, RESTLESSNESS AT 11:30. PT IN DISTRESS AND HAVING TROUBLE BREATHING. CODE BLUE CALLED PER CHARGE NURSE AT 11:35. SUSPECTED TRANSFUSION REACTION NOTED. BLOOD TRANSFUSION COMPLETE AT TIME OF REACTION/SYMPTOMS. PHYSICIAN AWARE, PRESENT IN ROOM AT TIME OF CODE. STAT ORDERS COMPLED ORDERED. [address] TO KEEP SATS ABOVE 90%. PT STILL C/O BURNING, TROUBLE BREATHING. PT TRANSFERRED TO [facility] WITH TELE VIA CART AT APPROX 12:45. BELONGINGS SENT WITH PT.
[2018-08-29 15:12] LABS: ALBUMIN 2.3 g/dL (3.4-5.0); CALCIUM 7.9 mg/dL (8.5-10.1); CREATININE 6.6 mg/dL (0.6-1.0)
[2018-08-29 15:15] LABS: POTASSIUM 5.5 mmol/L (3.5-5.1)
[2018-08-29 15:21] LABS: PROTIME 10.6 Seconds (9.3-11.4)
--- NOTE | 2018-08-29 15:58 | EKG ---
[address] [address] ELECTROCARDIOGRAM REPORT Name: PERNELL PEREZ Room #: 217-P ADM IN M.R.#: [id number] ������������������ Admission: 08/29/18 ������������������ Attend Phys: Ron Daly MD Discharge: ������������������ Date of : 51 Report #: [id number] ����������������������������������������������������������������� [id number] THIS REPORT FOR: //name// [facility] Test Date: 2018-08-29 Test Time: 11:43:25 Pat Name: PERNELL PEREZ Department: Room: [facility] Gender: F Beverage Host: Howard FREEMAN : 1955 Requested By: Marlyn James Order Number: [id number] MD: Arnold Leal Measurements Intervals [place] Rate: 70 P: 43 OR: 164 QRS: 36 QRSD: 100 T: 31 QT: 428 QTc: 462 Interpretive Statements Sinus rhythm Poor R-wave progression Compared to ECG 08/29/2018 00:08:06 Short OR interval no longer present Electronically Signed On 08-29-2018 15:58:00 CDT by Arnold Leal [email or web address] ��������������������������������������������� <ELECTRONICALLY SIGNED> ���������������������������������������� By: Arnold Leal MD ��������������������������������������������� 08/29/18 1558 1143 1143 Arnold Leal MD /ANDIE
--- NOTE | 2018-08-29 19:46 | NUR ---
ASSUMED CARE AT 1300, SHIFT ASSESSMENT DONE, RECEIVED PATIENT FROM S/P CODE CRESSEY. PATIENT APPEARED RESTLESS, REPORTING PAIN. FENTANYL GIVEN AT 1400 WITH SOME RELIEF. INITIALLY WAS REFUSING DIALYSIS, BUT LATER AGREED TO DO DIALYSIS. AT 1700, APPEARED RESTLESS AGAIN, ASKING FOR PAIN MEDS. WANTED TO DISCONTINUE DIALYSIS, WHICH WAS DISCONTINUED AND TOOK 1.5 L OFF. FENTANYL GIVEN AT 1800, STARTED REPORTING HEADECHE. WILL CONTINUE TO ASSESS AND ASSIST WITH ADLs NEEDED.
[2018-08-30 05:25] VITALS: BP 172/63
--- NOTE | 2018-08-30 05:45 | NUR ---
ASSUMED PT CARE AT 1900 WITH NO SIGN OF DISTRESS NOTED IN PT. PT IS ALERT AND ORIENTED WITH NO SIGN OF DISTRESS NOTED DURING SHIFT CHANGE PATIENT COMPLAINED OF A HEADACHE IN WHICH TYLENOL WAS ADMINISTERED. SCHEDULED MEDS ADMINISTERED TO PATIENT. PT IS ON ROOM AIR, AND STABLE. NO SIGN OF DISTRESS NOTED PT IS AWAKE FOR MOST OF THE NIGHT. DENIES ANY NEEDS AT THIS.
[2018-08-30 05:58] LABS: HEMATOCRIT 24.9 % (37.0-47.0); HEMOGLOBIN 7.9 gm/dL (12.0-15.0); MCH 25.5 pg (26.0-34.0); MCHC 31.8 g/dL (28.0-37.0); MCV 80.2 fL (80.0-100.0); RBC 3.1 mil/uL (4.20-5.00); RDW 17.3 % (10.5-14.5); WBC 4.8 thou/uL (4.0-11.0)
[2018-08-30 06:13] LABS: CALCIUM 7.8 mg/dL (8.5-10.1); POTASSIUM 5.8 mmol/L (3.5-5.1)
[2018-08-30 06:19] LABS: CREATININE 4.4 mg/dL (0.6-1.0)
[2018-08-30 07:55] VITALS: BP 157/53
[2018-08-30 11:55] VITALS: BP 124/56
[2018-08-30] MEDS ORDERED: PERCOCET PO (15:20)
[2018-08-30 15:38] VITALS: BP 124/56
[2018-08-30 16:05] VITALS: BP 147/55
--- NOTE | 2018-08-30 18:28 | NUR ---
ASSUMED CARE THIS AM, VERY SOB, ON HIGH FLOW O2. REFUSES BIPAP AND INTABATION. SPOKE WITH SISTER AND DOCTOR AND DECIDED TO BE DNR. MORPHINE AND ATIVAN ORDERED FOR COMFORT. RECEIVED DIALYSIS TODAY AND NOW HAS DISCHARGE ORDERS. INSTRUCTIONS DISCUSSSED AND NEW PRESCRIPTION FOR OXYCODONE GIVEN. WAITING ON TRANSPORTATION
== END 2018-08-30 20:00 | disposition home or self-care (01) | DRG 205 ==
LOC: ER 23:51 → EROBS 08-29 01:07 → 4E 08-29 01:07 → 2N 08-29 12:42
PROVIDERS: Emergency Medicine; Hospitalist; Nurse Practitioner; ADMIT Hospitalist
PROC: 30233N1 Transfusion of Nonautologous Red Blood Cells into Peripheral Vein, Percutaneous Approach (ICD-10-PCS; principal; 2018-08-29)
PROC: 5A1D70Z Performance of Urinary Filtration, Intermittent, Less than 6 Hours Per Day (ICD-10-PCS; principal; 2018-08-29)
PROC: 5A1D70Z Performance of Urinary Filtration, Intermittent, Less than 6 Hours Per Day (ICD-10-PCS; 2018-08-30)
DX: M94.0 Chondrocostal junction syndrome [Tietze] (principal); N18.6 End stage renal disease; I50.30 Unspecified diastolic (congestive) heart failure; R18.8 Other ascites; I13.2 Hypertensive heart and chronic kidney disease with heart failure and with stage 5 chronic kidney disease, or end stage renal disease; E87.5 Hyperkalemia; D64.9 Anemia, unspecified; K74.60 Unspecified cirrhosis of liver; E03.9 Hypothyroidism, unspecified; J44.9 Chronic obstructive pulmonary disease, unspecified; E11.42 Type 2 diabetes mellitus with diabetic polyneuropathy; I25.10 Atherosclerotic heart disease of native coronary artery without angina pectoris; E87.70 Fluid overload, unspecified; E11.51 Type 2 diabetes mellitus with diabetic peripheral angiopathy without gangrene; E78.5 Hyperlipidemia, unspecified; G89.29 Other chronic pain; R10.9 Unspecified abdominal pain; E11.22 Type 2 diabetes mellitus with diabetic chronic kidney disease; Z96.659 Presence of unspecified artificial knee joint; Z60.2 Problems related to living alone; Z86.19 Personal history of other infectious and parasitic diseases; Z90.49 Acquired absence of other specified parts of digestive tract; Z86.73 Personal history of transient ischemic attack (TIA), and cerebral infarction without residual deficits; Z86.718 Personal history of other venous thrombosis and embolism; Z90.710 Acquired absence of both cervix and uterus; Z95.5 Presence of coronary angioplasty implant and graft; Z88.8 Allergy status to other drugs, medicaments and biological substances; Z87.81 Personal history of (healed) traumatic fracture; Z83.3 Family history of diabetes mellitus; Z82.49 Family history of ischemic heart disease and other diseases of the circulatory system; Z71.6 Tobacco abuse counseling
CPT/HCPCS: 10081; 32100

== ENCOUNTER 2018-09-03 16:46 | Emergency (ER) | payer OTHER ==
[~2018-09-03] VITALS: Ht 157.5 cm; Wt 56.7 kg
[2018-09-03 17:49] LABS: ABSOLUTE NEUTROPHILS 3.8 thou/uL (1.4-8.2); BASOPHILS 0.4 % (0.0-2.0); EOSINOPHILS 1.6 % (0.0-3.0); HEMATOCRIT 22.9 % (37.0-47.0); HEMOGLOBIN 7.4 gm/dL (12.0-15.0); LYMPHOCYTES 29.1 % (24.0-44.0); MCH 26.1 pg (26.0-34.0); MCHC 32.4 g/dL (28.0-37.0); MCV 80.5 fL (80.0-100.0); MONOCYTES 10.7 % (1.0-8.0); PLATELET COUNT 240 thou/uL (150-400); POLYS 58.2 % (36.0-66.0); RBC 2.84 mil/uL (4.20-5.00); RDW 18.5 % (10.5-14.5); WBC 6.4 thou/uL (4.0-11.0)
[2018-09-03 17:58] LABS: ANION GAP 6 mmol/L (7-16); BUN 41 mg/dL (7-18); CALCIUM 8.6 mg/dL (8.5-10.1); CHLORIDE 99 mmol/L (98-107); CO2 32 mmol/L (21-32); CREATININE 2.2 mg/dL (0.6-1.0); GLUCOSE 181 mg/dL (74-106); POTASSIUM 3.5 mmol/L (3.5-5.1); SODIUM 137 mmol/L (136-145)
[2018-09-03 18:08] LABS: ALBUMIN 2.4 g/dL (3.4-5.0); SGOT 44 U/L (15-37); SGPT 29 U/L (30-65); TOTAL BILIRUBIN 0.3 mg/dL (<0.1-1.0); TOTAL PROTEIN 7.8 g/dL (6.4-8.2); TROPONIN-I <0.06 ng/mL (<0.06)
[2018-09-03 19:00] VITALS: BP 136/51
[2018-09-03] MEDS ORDERED: HYDROXYZINE HCL10 M2 PO (19:12)
--- NOTE | 2018-09-04 07:32 | EKG ---
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: : 1955 Requested By: Carie Whitney Order Number: [id number] MD: Saul Johnson Measurements Intervals [place] Rate: 82 P: 58 FL: 58 QRS: 32 QRSD: 95 T: 18 QT: 396 QTc: 463 Interpretive Statements Sinus rhythm Short FL interval Borderline ST depression, anterolateral leads Compared to ECG 08/29/2018 11:43:25 Short FL interval now present ST (T wave) deviation now present Poor R-wave progression no longer present Electronically Signed On 09-04-2018 7:32:28 CDT by Saul Johnson [email or web address] ��������������������������������������������� <ELECTRONICALLY SIGNED> ���������������������������������������� By: Saul Johnson MD ��������������������������������������������� 09/04/18 0732 1805 1805 Saul Johnson MD /EPI
== END 2018-09-03 19:00 | disposition home or self-care (01) ==
LOC: ER 16:46
PROVIDERS: Physician Assistant
DX: L29.9 Pruritus, unspecified (principal); T40.4X5A Adverse effect of other synthetic narcotics, initial encounter; I13.2 Hypertensive heart and chronic kidney disease with heart failure and with stage 5 chronic kidney disease, or end stage renal disease; E11.22 Type 2 diabetes mellitus with diabetic chronic kidney disease; N18.6 End stage renal disease; I50.30 Unspecified diastolic (congestive) heart failure; Z99.2 Dependence on renal dialysis; B19.20 Unspecified viral hepatitis C without hepatic coma; E03.9 Hypothyroidism, unspecified; J44.9 Chronic obstructive pulmonary disease, unspecified; E11.42 Type 2 diabetes mellitus with diabetic polyneuropathy; I25.10 Atherosclerotic heart disease of native coronary artery without angina pectoris; E78.5 Hyperlipidemia, unspecified; F17.210 Nicotine dependence, cigarettes, uncomplicated; Z86.718 Personal history of other venous thrombosis and embolism; Z90.710 Acquired absence of both cervix and uterus; Z88.8 Allergy status to other drugs, medicaments and biological substances; Y92.89 Other specified places as the place of occurrence of the external cause

== ENCOUNTER 2018-09-04 03:49 | Inpatient (IN) | payer OTHER ==
[~2018-09-04] VITALS: Ht 157.5 cm; Wt 56.7 kg
[~2018-09-04 03:49] MED LIST changes: +HYDROXYZINE HCL10 M2 PO
[2018-09-04 05:05] VITALS: BP 156/54
[2018-09-04 11:06] VITALS: BP 178/59
[2018-09-04 11:58] VITALS: BP 178/59
[2018-09-04 14:08] VITALS: BP 178/59
== END 2018-09-04 14:20 | disposition home or self-care (01) | DRG 432 ==
LOC: 4E 03:49
PROVIDERS: ADMIT Hospitalist
PROC: 0W9G3ZZ Drainage of Peritoneal Cavity, Percutaneous Approach (ICD-10-PCS; principal; 2018-09-04)
DX: K74.60 Unspecified cirrhosis of liver (principal); N18.6 End stage renal disease; I50.30 Unspecified diastolic (congestive) heart failure; I13.2 Hypertensive heart and chronic kidney disease with heart failure and with stage 5 chronic kidney disease, or end stage renal disease; E03.9 Hypothyroidism, unspecified; I25.10 Atherosclerotic heart disease of native coronary artery without angina pectoris; E11.22 Type 2 diabetes mellitus with diabetic chronic kidney disease; E11.42 Type 2 diabetes mellitus with diabetic polyneuropathy; D50.9 Iron deficiency anemia, unspecified; M75.102 Unspecified rotator cuff tear or rupture of left shoulder, not specified as traumatic; Z90.710 Acquired absence of both cervix and uterus; Z79.899 Other long term (current) drug therapy; Z90.49 Acquired absence of other specified parts of digestive tract; Z86.73 Personal history of transient ischemic attack (TIA), and cerebral infarction without residual deficits; Z86.718 Personal history of other venous thrombosis and embolism; Z95.5 Presence of coronary angioplasty implant and graft
CPT/HCPCS: 10084

== ENCOUNTER 2018-09-10 05:31 | Emergency (ER) | payer OTHER ==
[~2018-09-10] VITALS: Ht 157.5 cm; Wt 56.7 kg
[2018-09-10] MEDS ORDERED: KRISTALOSE20 GM PO (11:55)
[2018-09-10] MEDS ORDERED: SENNA-DOCUSATE1 EAC1 PO (11:55)
[2018-09-10 12:12] VITALS: BP 132/62
== END 2018-09-10 12:12 | disposition home or self-care (01) ==
LOC: ER 05:31
DX: K59.03 Drug induced constipation (principal); F17.210 Nicotine dependence, cigarettes, uncomplicated; I50.30 Unspecified diastolic (congestive) heart failure; N18.6 End stage renal disease; E11.22 Type 2 diabetes mellitus with diabetic chronic kidney disease; E03.9 Hypothyroidism, unspecified; J44.9 Chronic obstructive pulmonary disease, unspecified; I25.10 Atherosclerotic heart disease of native coronary artery without angina pectoris; Z86.718 Personal history of other venous thrombosis and embolism; Z88.7 Allergy status to serum and vaccine; Z88.8 Allergy status to other drugs, medicaments and biological substances; Z86.73 Personal history of transient ischemic attack (TIA), and cerebral infarction without residual deficits; Z90.49 Acquired absence of other specified parts of digestive tract; Z90.710 Acquired absence of both cervix and uterus

== ENCOUNTER → 2018-10-01 | Outpatient (CLI) | payer OTHER ==
[~2018-10-01] MED LIST changes: +KRISTALOSE20 GM PO; +SENNA-DOCUSATE1 EAC1 PO
== END | disposition home or self-care (01) ==
LOC: ULTRA 15:31
DX: R18.8 Other ascites (principal); R10.9 Unspecified abdominal pain; G89.29 Other chronic pain; N18.6 End stage renal disease; D64.9 Anemia, unspecified; E11.22 Type 2 diabetes mellitus with diabetic chronic kidney disease; I25.10 Atherosclerotic heart disease of native coronary artery without angina pectoris; I50.9 Heart failure, unspecified; J44.9 Chronic obstructive pulmonary disease, unspecified; E03.9 Hypothyroidism, unspecified; G62.9 Polyneuropathy, unspecified; F17.210 Nicotine dependence, cigarettes, uncomplicated; Z90.710 Acquired absence of both cervix and uterus; Z87.19 Personal history of other diseases of the digestive system; Z86.73 Personal history of transient ischemic attack (TIA), and cerebral infarction without residual deficits; Z98.890 Other specified postprocedural states; Z86.718 Personal history of other venous thrombosis and embolism; Z79.01 Long term (current) use of anticoagulants; Z82.49 Family history of ischemic heart disease and other diseases of the circulatory system; Z86.19 Personal history of other infectious and parasitic diseases; Z83.3 Family history of diabetes mellitus

== ENCOUNTER 2018-10-17 13:57 | Emergency (ER) | payer OTHER ==
[~2018-10-17] VITALS: Ht 157.5 cm; Wt 56.7 kg
[2018-10-17] MEDS ORDERED: ACETAMINOPHEN-1 EAC1 PO (14:36)
[2018-10-17] MEDS ORDERED: TOPICAINE 5113 GM TOP (14:36)
[2018-10-17] MEDS ORDERED: HYDROCORTISONE30 G9 RECTAL (14:36)
[2018-10-17 15:15] VITALS: BP 115/78
== END 2018-10-17 15:22 | disposition home or self-care (01) ==
LOC: ER 13:57
DX: K64.4 Residual hemorrhoidal skin tags (principal); L29.3 Anogenital pruritus, unspecified; F17.210 Nicotine dependence, cigarettes, uncomplicated; I50.30 Unspecified diastolic (congestive) heart failure; E11.9 Type 2 diabetes mellitus without complications; N18.6 End stage renal disease; I25.10 Atherosclerotic heart disease of native coronary artery without angina pectoris; E03.9 Hypothyroidism, unspecified; Z86.73 Personal history of transient ischemic attack (TIA), and cerebral infarction without residual deficits; J44.9 Chronic obstructive pulmonary disease, unspecified; Z86.2 Personal history of diseases of the blood and blood-forming organs and certain disorders involving the immune mechanism; Z86.718 Personal history of other venous thrombosis and embolism; Z88.8 Allergy status to other drugs, medicaments and biological substances; Z90.49 Acquired absence of other specified parts of digestive tract; Z90.710 Acquired absence of both cervix and uterus

== ENCOUNTER 2018-10-19 22:46 | Inpatient (IN) | payer OTHER ==
[~2018-10-19] VITALS: Ht 165.1 cm; Wt 56.0 kg
--- NOTE | ~2018-10-19 | HC ---
[facility] [place] [address] CONSULTATION Name: PERNELL PEREZ Room #: 451-P ADM IN M.R.#: [id number] Admission: 10/19/18 ������������������ Attend Phys: Zhen Guerin MD Discharge: ������������������ Date of : 51 Report #: [id number] THIS REPORT FOR: //name// CC: Shen Guerin DATE OF SERVICE: 10/24/2018 PALLIATIVE CARE CONSULTATION REQUESTING PHYSICIAN: Dr. Torres and Dr. Daly. CHIEF COMPLAINT: End-stage liver disease, end-stage renal disease. HISTORY OF PRESENT ILLNESS: The patient is a 63-year-old female who presented with new subacute right MCA CVA. She presented initially to [facility] and was transferred upon discovery of the CVA. The patient has had a significant history of end-stage renal disease, currently on dialysis. She has not had dialysis since Saturday due to intolerance. Additionally, she has end-stage liver disease and hepatitis C, causative agents are involved in that. The patient has had an overall significant decline in her functional status and apparently had had approximately 1 month ago discussion with daughter and probably son and sisters about her end of life care. The patient on initial admission did not express interest in hospice care, but she has been made DNR; however, she has had worsening overall status, had various times not responsive, unable to take p.o. intake. The patient is not responsive to me at this current point in time, although occasionally will report some pain to her family who are present mostly in the sacral area. The patient additionally has had a history of significant anxiety. Also, pruritus with pain medication. PAST MEDICAL HISTORY: CVA, coronary artery disease, COPD, chronic hypoxic respiratory failure, type 2 diabetes, hypertension, hyperlipidemia, history of DVT, hepatitis C. MEDICATIONS: Fentanyl 50 mcg p.r.n., Xanax 0.5 q.6h. p.r.n., Benadryl, aspirin, Protonix, levothyroxine, [place]. PAST SURGICAL HISTORY: 3 stent placement coronary, multiple cardiac arrests in the past, she has an AVM left upper extremity, hysterectomy, right knee surgery. ALLERGIES: ESTROGEN, ROBAXIN, LISPRO, HUMALOG. FAMILY HISTORY: Noncontributory. [address] [address] CONSULTATION Name: PERNELL PEREZ Room #: [facility] IN M.R.#: [id number] Admission: 10/19/18 ������������������ Attend Phys: Zhen Guerin MD Discharge: ������������������ Date of : 51 Report #: [id number] SOCIAL HISTORY: Son is DPOA, who I have contacted today. Also discussed with daughter and 2 sisters who are present. REVIEW OF SYSTEMS: Unable to obtain due to present medical condition. PHYSICAL EXAMINATION: VITAL SIGNS: These include temperature 37.1, pulse 62, respirations 18, blood pressure 103/42, 100% on nasal cannula. GENERAL: The patient is not alert. She is not oriented or at least able to be assessed for this. No acute distress currently. HEENT: Unable to assess currently. CARDIOVASCULAR: Appears to be regular rate and rhythm at this time. She does have murmur present. It is 3/6. RESPIRATORY: Clear anteriorly currently. ABDOMEN: She is distended moderately so and diminished bowel sounds, but no grimacing to palpation. EXTREMITIES: She does have some coolness to her toes, but she has good palpable pulses 2/4 upper and lower extremities bilaterally. LABORATORY DATA: Included hemoglobin of 5.7. Creatinine was of course 8.2. ASSESSMENT AND PLAN: 1. End-stage renal disease, has not had dialysis since Saturday. I did discuss this with daughter at this time that this would likely worsen her delirium overall and since she is intolerant of this that she would likely benefit greatly from palliative or hospice type care. Daughter and sisters are present and appeared to be amenable to an inpatient hospice referral. I did discuss this with DPOA as well and he is amenable to this at this time and confirmed DNR status. I spent approximately 35 minutes in discussion of advanced care planning. I have gone ahead and changed fentanyl to morphine. Hopefully, this change will cause a longer lasting effect for pain management. The possibility that her itching will continue or worsen is there, but did discuss we can continue Benadryl, although this will worsen her mental status. I did discuss switching to Ativan for anxiety management, which they are amenable to. 2. End-stage liver disease, again as above. Discussed that a lot of these medications are likely to build into her system because of these two factors; however, that overall, we will not give medication just for the sake of getting medication that it is likely she will just need this as needed for management. 3. Cerebrovascular accident. Again, at this point in time, she has delirium, possible that this is the overall effect of her CVA as well significantly affecting her current condition. 4. Hypoxic respiratory failure. Again, this has an effect on her overall care, but we will continue her oxygen for her pain management. Additionally, I have written morphine for respiratory hunger management. 5. Anemia, significant at this time, it affects her overall condition as well [facility] [address] [place] [address] CONSULTATION Name: PERNELL PEREZ Room #: 451-P ADM IN M.R.#: [id number] Admission: 10/19/18 ������������������ Attend Phys: Zhen Guerin MD Discharge: ������������������ Date of : 51 Report #: [id number] and this has not been checked since then if this is any lower. Again, she is likely in a terminal condition. I did discuss this with family today. Thank you very much for this consultation. ��������������������������������������������� ���������������������������������������� By: ��������������������������������������������� 1552 0146 Elbert Shin DO /nt
[~2018-10-19 22:46] MED LIST changes: +HYDROCORTISONE30 G9 RECTAL; +TOPICAINE 5113 GM TOP
[2018-10-19 23:40] VITALS: BP 129/93
[2018-10-20 00:17] LABS: MCH 22.6 pg (26.0-34.0)
[2018-10-20 00:18] LABS: MCHC 30.1 g/dL (28.0-37.0); RBC 2.5 mil/uL (4.20-5.00); RDW 20.3 % (10.5-14.5); WBC 16.4 thou/uL (4.0-11.0)
[2018-10-20 00:22] LABS: CALCIUM 6.3 mg/dL (8.5-10.1)
[2018-10-20 00:23] LABS: POTASSIUM 5.1 mmol/L (3.5-5.1)
[2018-10-20 00:24] LABS: HEMATOCRIT 18.8 % (37.0-47.0); HEMOGLOBIN 5.7 gm/dL (12.0-15.0)
[2018-10-20 00:28] LABS: ALBUMIN 2.1 g/dL (3.4-5.0); TOTAL BILIRUBIN 0.6 mg/dL (<0.1-1.0); TOTAL PROTEIN 7.7 g/dL (6.4-8.2)
--- NOTE | 2018-10-20 00:39 | NUR ---
called in consult to nephrology. reported hemoglobin, creatinine, that one liter of fluid given at [facility], and that her lungs are course. provider asked about pertinent labs and advised no fluids tonight. no further orders tonight. that he will take care of it tomorrow with dialysis.
--- NOTE | 2018-10-20 01:07 | NUR ---
spoke with dtr regarding pts condition and her plan for tonight and in the morning. reassured her that she is safe and that she will want to speak with provider in the morning.
[2018-10-20 01:47] LABS: BE(vivo) -4.2 mmol/L (-2 to +3); HCO3 21.4 mmol/L (22.0-26.0); PCO2 41.9 mmHg (35.0-45.0); PO2 115.7 mmHg (80.0-100.0); pH 7.326 (7.360-7.450); sO2 97.9 % (92.0-98.0)
--- NOTE | 2018-10-20 02:07 | NUR ---
admission note; spoke with dtr, she stated that this is not her mothers baseline. she lives alone and her dtr checks on her. she has multiple areas of open scratches and skins tears to left arm and left hand. her bottom has a striped ghotra accross her that are dark red. she is restless and is groaming and is yelling come on. she is unable to answer questions or follow commands. she is coughing up green sputum. she has been placed on 40% venti mask. to keep oxygen level greater than 94%.
[2018-10-20 04:00] VITALS: BP 118/79
[2018-10-20 05:33] VITALS: BP 118/79
[2018-10-20 06:50] LABS: MCH 23.3 pg (26.0-34.0); MCHC 31.5 g/dL (28.0-37.0); MCV 73.9 fL (80.0-100.0); RBC 2.45 mil/uL (4.20-5.00); RDW 20.4 % (10.5-14.5); WBC 14.5 thou/uL (4.0-11.0)
[2018-10-20 06:56] LABS: HEMATOCRIT 18.1 % (37.0-47.0); HEMOGLOBIN 5.7 gm/dL (12.0-15.0)
[2018-10-20 07:02] LABS: CALCIUM 6.6 mg/dL (8.5-10.1); CREATININE 8.2 mg/dL (0.6-1.0); POTASSIUM 4.7 mmol/L (3.5-5.1)
[2018-10-20 08:36] VITALS: BP 79/44
--- NOTE | 2018-10-20 10:29 | NUR ---
INITIAL ASSESSMENT: Received consult for discharge planning. Pt was admitted from home due to altered mental status. SW met with pt and dtrDaisy, at bedside. Introduced role of SW. Pt was not responding to verbal stimuli during time of SW visit. Pt's dtr states she has been lethargic since Saturday. Pt was brought to the ER on Saturday from dialysis, and then sent home. Per pt's dtr, pt currently lives with her son, Valentino, and his family. 0 steps to enter and 2 steps down to her bedroom. Pt has family that are involved in pt's care. Pt goes to outpatient dialysis at [facility] at 1015. Pt has in-home services through [place] 3.5 hrs/daily. Pt has used [facility] in the past for HH services. Pt's PCP is Dr. Marie Boswell. Pt's son is her DPOA and is currently out of town. Pt's dtr states that one physician has brought up hospice. Pt's dtr states that pt's spouse was on hospice in 1992 and pt's son was on hospice in 2014. Pt's dtr unable to remember name of hospice provider. Pt's dtr states that family would want to take pt home if possible. Neurologist came to see pt during SW visit. Pt to have an MRI today. Pt with hx of CVA in December of 2014. Pt has been to [facility] and [facility] in the past. SW is following to assist as needed with discharge planning.
--- NOTE | 2018-10-20 13:01 | NUR ---
WOUND CONSULT; A LEFT UPPER ARE SKIN TEAR AND A DISTAL ARM SKIN TEAR IDENTIFIED. A LEFT HAND SKIN TEAR IDENTIFIED. LEFT BUTTOCK, HIP AND BUTTOCKS DTI'S IDENTIFIED ALL LINIAR IN PRESENTATION. LEFT HAND PROXIMAL FINGERS, SKIN TEARS/BLISTERED AREAS. A RIGHT HEEL RESOLCING HEMATOMA. RECOMMENDATION; LOW AIR LOSS PUMP, PRAFO BOOT(S), 1- LEFT ARM PROXIMAL AQUACEL AF, COVER WITH A BOARDERED FOAM DAILY/PRN, 2-LEFT HAND; XEROFORM GAUZE BETWEEN FINGERS,GAUZE, SECURE WITH KERLIX. 3-LEFT ARM DISTAL, BOARDERED FOAM, (SACRAL, LEFT HIP BUTTOCKS; BARRIER CREAM, RIGHT HEEL MORGAN DISCUSSED WITH RN
--- NOTE | 2018-10-20 15:46 | NUR ---
LETHARGIC MOANS WITH STERNAL RUB. FAMILY AT BEDSIDE, DAUGHTER WOULD LIKE FOR HER MOTHER TO HAVE DIALYSIS TODAY AND THE BLOOD TRANSFUSION BECAUSE IT IS HER BIRTHDAY. WILL CONSIDER CONFORT CARE TOMORROW. LUNGS DIMINSHED IN BASES AND COARSE UPPERS - SUCTIONED WITH YANKAUR FOR GREENISH THIN SECRETIONS. ABDOMEN SOFT DISTENDED WITH ACITES. WENT TO MRI - MOANED WHEN MOVED TO CART. DIALYSIS AT 1300.
--- NOTE | 2018-10-20 18:31 | NUR ---
RETURNED FROM DIALYSIS MORE ALERT OPENS EYES TO VERBAL COMMANDS. FOLLOWS COMMANDS SQUEEZED RIGHT HAND. FAMILY IN ROOM. REPOSTIONED TO RIGHT SIDE.
[2018-10-20 19:23] VITALS: BP 115/46
[2018-10-20 23:32] VITALS: BP 100/43
[2018-10-21] VITALS (8 sets, daily range): BP systolic 74–130; BP diastolic 38–71
--- NOTE | 2018-10-21 00:42 | NUR ---
PATIENT MOANING, SLIGHTLY RESTLESS. PT'S FAMILY AT BEDSIDE. FENTANYL GIVEN ORDER.
--- NOTE | 2018-10-21 13:27 | NUR ---
DIAN reviewed chart and spoke with nursing and attending physician. Pt received dialysis yesterday and has been made a DNR. Pt on comfort care at this time. No famly at bedside. Palliative care consult ordered. Palliative care physician is not available this week. DIAN left voice messages for pt's son, Valentino, and dtr, Daisy, to discuss hospice referral and discharge disposition. DIAN updated attending physician. DIAN is following to assist as needed with discharge planning.
--- NOTE | 2018-10-21 14:30 | NUR ---
Nutrition: pt admit with AMS, large CVA due to carotid occlusion. RD consulted due to malnutrition-defer dx to physician. Pt has been made comfort care. RD deferring eval at this time.
--- NOTE | 2018-10-21 20:18 | NUR ---
ASSUMED CARE OF PT AT APPROX 0700. PT IS LETHARGIC AND DROWSY AND DOES NOT RESPOND TO NAME WITH EYE OPENING BUT WILL SQUEEZE HAND SOME TIMES WHEN PROMPTED. ASSESSMENT CHARTED. PT DOES HAVE SHALLOW BREATHING BUT NO EPISODES OF APNEA NOTED. PRESSURE ARE BELOW 100 SYSTOLIC. PT BEGINS TO MAON THIS AFTERNOON IN PAIN. CALLED RECIEVED ORDER FOR PRN MORPHINE. AFTER CLEANING AND REPOSITION THE PT THE PT WAS RESTING WELL WITH NO SIGNS OF PAIN. DID NOT ADMINISTER PAIN MEDS DUE TO LOW BP. FAMILY HAS BEEN UPDATED ON POC. HOSPICE HAS BEEN SUGGESTED TO FAMILY BUT THEY STATE THEY WOULD LIKE TO WAIT UNTIL SATURDAY TO MAKE DECISION. PT MAKING POOR PROGRESS TOWARDS POC AT THIS TIME. WILL CONTINUE TO MONITOR.
--- NOTE | 2018-10-21 21:53 | NUR ---
TWO OF PT'S CAME TO VISIT THIS EVENING. THEY STATED PT'S SON/DPOA IS ON VACATION AND DOES NOT RETURN HOME UNTIL THIS COMING SATURDAY (10/25).
[2018-10-22] VITALS (11 sets, daily range): BP systolic 74–91; BP diastolic 34–77
--- NOTE | 2018-10-22 04:45 | NUR ---
ASSUMED PT CARE AROUND 1900. PT IS LETHARGIC, NONVERBAL. OCCASSIONALLY WILL SQUEEZE RIGHT HAND ON COMMAND. PT MOANS WHEN BEING REPOSITIONED. FENTANYL GIVEN FOR PAIN. SOME OF PT'S SISTERS WERE AT BEDSIDE MOST OF THE NIGHT. INSURANCE AGENTS SUPERVISOR GRAVITY PROSPECTING OBSERVER HELPER FOR HOSPITALIST NOTIFIED OF LOW BP. NO NEW ORDERS RECEIVED. ORAL CARE PROVIDED. RESPIRATIONS SHALLOW, BUT EVEN AND UNLABORED. COUGH MORE CONGESTED THIS MORNING. REPOSITIONED TO PREVENT FURTHER SKIN BREAKDOWN AND FOR COMFORT. FALL PRECAUTIONS IN PLACE. NOT PROGRESSING WELL TOWARD POC GOALS. WILL CONTINUE TO MONITOR FURTHER.
--- NOTE | 2018-10-22 10:40 | NUR ---
SW reviewed chart and spoke with nursing and attending physician. Pt remains on comfort care measures. No family present at bedside. Attending physician spoke with pt's dtr this morning to provide update. SW left voice message for pt's dtr, Daisy, to discuss plan of care and discharge plans. Awaiting call back at this time. DIAN is following to assist as needed with discharge planning.
--- NOTE | 2018-10-22 13:51 | NUR ---
Received on bed. Pt non verbal, moans during repositioning, utters incomprehensible words. On O2 at 3lpm via nasal cannula. Bp with low blood pressure- Dr Daly informed during his AM rounds. Pt suctioned regularly, mouth care done every 2 hours. WIth fistula t L upper arm- pt last dialysis on the , a/w next dialysis schedule or decision if to continue with dialysis. Pt on NPO, regular mouth care done. On Accuchecks q shift. Pt turned every 2 hours. With skin tears at L arm- with dressing on, C/D/I, with blisters at toes. Pt a/w rounds from palliative care- with referral to Dr Shin- pt still hasnt seen pt; called in this PM again to follow up but call doesn't go thru, will keep trying to call the doctor. Case management contacted to liase between pt's daughter, pt's son who is DPOA and pt's sister- EMANUEL García informed. Pt seen by Dr Daly this am, aware of pt's status, he called pt's daughter and gave update to her. Pt's daughter talked to me in private and mentioned about issues re: pt's sisters and pt's children- CM informed and asked her to talk to the daughter. Pt's daughter updated that I'll just be completing documentation and will transfer pt to 451; informed her as well to my decision to withold fentanyl earlier as pt's RR is low, and vital signs are down. Pt's daughter agreed, will go home for a while to get DPOA and come back later, notified her re: transfer to [facility]. Dr Daly informed re: pt's transfer.
--- NOTE | 2018-10-22 20:10 | NUR ---
ASSUMED CARE OF PT APPROX 1500. PATIENT CAME IN LETHARGIC. APPROX 1700 PATIENT ALERT AND ORIENTED TO SELF. PATIENT ASKED FOR FAMILY MEMBER TO PUT HER DENTURES IN AND STATED SHE WAS IN PAIN,BUT WASNT ABLE TO SAY WHERE TO THIS NURSE. PAIN MEDICATION GIVEN AND PATIENT RESTING WITHOUT COMPLAINT AND OK GIVEN BY DOCTOR. PATIENT TURNED Q2 HOURS, FALL PRECAUTIONS IN PLACE. WILL CONTINUE TO MONITOR.
[2018-10-23 01:42] VITALS: BP 89/39
--- NOTE | 2018-10-23 03:07 | NUR ---
ASSUMED CARE AROUND 1900. AWAKE AND AGITATED. DNR AND PROVIDING COMFORT AT THIS TIME. LOW BP ADDRESSED TO WILDLIFE CONSERVATION PROFESSOR LOOM OPERATOR APPRENTICE. NNO AT THIS TIME. FAMILY AT BEDSIDE AT ALL TIMES. FREQUENT VISUAL CHECKS RENDERED AND PAIN MANGED PER MD ORDER. WILL CONT TO MONITOR FOR ANY CHANGES IN CONDITION.
[2018-10-23 07:42] VITALS: BP 86/46
--- NOTE | 2018-10-23 16:20 | NUR ---
CHRISTOS NICOLASUGH DEANN PAPERWORK IN AND IT WAS PLACED ON THE CHART LAST NIGHT. MOST RECENT PAPERWORK IS FROM 2018 AND NAMES SON ERIN ALMANZA DEANN AND CHRISTOS MORRIS SECONDARY. PHYSICAIN SPOKE WITH SON AND THEY ARE STILL DISCUSSING PLAN OF CARE. CM TO FOLLOW INDICATED WITH DC PLANNING. PT CONTINUES ON COMFORT CARE.
--- NOTE | 2018-10-23 18:09 | NUR ---
PATIENT RESPONDING TO YES/NO QUESTIONS BY SHAKING HER HEAD YES OR NO. DENIED PAIN. PATIENT'S SISTERS AT BEDSIDE ALL DAY. OPENED EYES ONCE TODAY, WOULD NOT OPEN EYES WHEN ASKED TO THIS AM. TURNING Q2 HOURS. WOUND CARE NURSE ANNELIESE CHANGED ALL DRESSINGS TO WOUNDS. PATIENT RESTLESS AT TIMES. MEDICATED WITH FENTANYL X 2 PER FAMILY REQUEST, STATING SHE IS RUBBING AT HER TUMMY ALOT AND MOANING. NO RESPIRATORY DISTRESS NOTED. WILL NOT LEAVE ON OXYGEN CANNULA. PULLS AT DRESSINGS WITH RIGHT ARM AT TIMES. FALL PRECAUTIONS IN PLACE. PATIENT IS ANURIC. WILL CONTINUE WITH SUPPORTIVE CARE.
[2018-10-23 19:56] VITALS: BP 94/50
[2018-10-24 04:33] VITALS: BP 49/17
--- NOTE | 2018-10-24 07:38 | HC ---
[facility] [place] [address] CONSULTATION Name: PERNELL PEREZ Room #: 451-P ADM IN M.R.#: [id number] Admission: 10/19/18 ������������������ Attend Phys: Zhen Guerin MD Discharge: ������������������ Date of : 51 Report #: [id number] THIS REPORT FOR: //name// CC: Marie Boswell Munir Guerin DATE OF SERVICE: 10/20/2018 REASON FOR CONSULTATION: End-stage renal disease. REASON FOR PRESENTATION: Altered mental status. HISTORY OF PRESENT ILLNESS: Very well-known patient to me. She is on end-stage liver disease, cirrhosis, and end-stage kidney disease, maintained on hemodialysis. She is known to have recurrent GI bleeding. She has terminal COPD. She is status post multiple arrests. She has been feeling weak and tired per her family members who took her to [facility] after she was found to be unresponsive. The details of this are not available as the patient is currently not able to provide me with the details of the history. The patient was taken to [facility] where an investigation had been started there. She had major mental status issues and inability to move her limbs. They could not exclude a stroke and the patient was transferred to our facility for further evaluation and management. The patient is well known to me from the chronic dialysis unit and her health has been deteriorating in the last couple of weeks. PAST MEDICAL HISTORY: 1. End-stage renal disease. 2. End-stage kidney disease. 3. Hemodialysis patient. 4. COPD. 5. Recurrent GI bleeding. 6. Multiple cardiac arrests. 7. Coronary artery disease. 8. Multiple thoracenteses and paracentesis. 9. Hysterectomy. 10. Rotator cuff surgery. FAMILY HISTORY: Significant for diabetes mellitus and hypertension. SOCIAL HISTORY: As per the records, the patient lives with her son. No drug or alcohol abuse. MEDICATIONS: 1. Lactulose. 2. Levothyroxine. [facility] [address] [place] [address] CONSULTATION Name: PERNELL PEREZ Room #: 451-P [facility] IN [facility].#: [id number] Admission: 10/19/18 ������������������ Attend Phys: Zhen Gueirn MD Discharge: ������������������ Date of : 51 Report #: [id number] 3. Atorvastatin. 4. ____. 5. Oxycodone. 6. Victoza. I am not really sure if the patient has been taking any of her medications or not. REVIEW OF SYSTEMS: Completely unobtainable given the patient's mental status. PHYSICAL EXAMINATION: VITAL SIGNS: She is lethargic. She opens eyes to verbal stimuli. She is disoriented x3. Blood pressure is 118/79. HEAD AND NECK: No jugular venous distention. Chest: Decreased air entry bilaterally. CARDIOVASCULAR: No rub detected. ABDOMEN: Soft. LOWER EXTREMITIES: No edema. LABORATORY DATA: Reviewed. White blood cell count is 14.5, hemoglobin is 5.7, and platelet is 360. Chemistry revealed sodium of 141, potassium 4.7, BUN of 112, and creatinine of 8.2. ASSESSMENT, IMPRESSION, PLAN: 1. End-stage renal disease. 2. End-stage liver disease. 3. Mental status changes. 4. Narcotic dependence. 5. Chronic obstructive pulmonary disease. 6. Anemia. 7. Coronary artery disease. 8. Hypothyroidism. The patient's condition has been deteriorating in the last couple of weeks and months. The patient has opted to stop all of her medications. Amongst those medications that she opted to stop is Sandostatin that was helping her with her AV malformations. I do not think the patient has an acute stroke. I will address with the family members regarding the long-term care plans. The patient's condition warrants no code status, palliative and comfort care. However, if the family wants to continue with the current medical plans, we will aim for the usual dialysis today and transfuse her with dialysis today. ��������������������������������������������� <ELECTRONICALLY SIGNED> ���������������������������������������� By: Shen Torres MD ��������������������������������������������� 10/24/18 0738 [id number] Shen Torres MD /nt
[2018-10-24 08:19] VITALS: BP 103/42
--- NOTE | 2018-10-24 08:21 | NUR ---
Assumed care at 1845. Pt resting in bed. AOX1. Had a drop in BP today. Notified COOPER APPRENTICE who suggested to closely monitor since the patient is on palliative care orders. COOPER APPRENTICE orders benadryl cream because the patient was itching all over the body. Dr. Tony boykin also ordered Palliative consult and a onetime benadryl IV. Pt is still NPO. Family at bedside. No identified needs at the moment. Will continue to monitor.
--- NOTE | 2018-10-24 12:40 | NUR ---
WOUND CARE FOLLOW UP; THE SACRAL DTI'S HAVE NOT PRORESSED MUCH ANTICIPATED. MORE BRUISING TO SACRUM. RECOMMENDATIONS; ADD A SACRAL OPTIFOAM TODAY. RN PRESENT
--- NOTE | 2018-10-24 13:15 | NUR ---
CARE TEAM INDICATED THAT PT'S SON AND DTR ARE MORE RECEPTIVE TO HOSPICE SERVICES. HE INDICATED THAT DTR HAD EXPRESSED DESIRE FOR PT TO DC HOME WITH HOSPICE. CM CALLED PT'S SON ERIN THIS AFTERNOON AND INDICATED THAT CARE TEAM HAD CONSULTED DR. PATEL AND ASKED IF HE COULD CALL SON WON'T BE BACK IN [place] UNTIL TOMORROW MORNING HE INDICATED DR. PATEL COULD. CM PROVIDED JORGE GONCALVES WITH ERIN'S NUMBER. CM ASKED IF THEY KNEW OF A HOSPICE PROVIDER THEY WERE INTERESTED IN AND HE INDICATED THAT HE WANTED TO SEE HIS MOM BEFORE HE MADE ANY DECISIONS BUT DIDN'T KNOW OF ANY. CM INDICATED THAT CM WOULD LEAVE BROCHURES. PLAN WOULD BE FOR HOSPICE TO BE INITIATED OVER THE WEEKEND IF FAMILY ELEECTS SERVICES.
--- NOTE | 2018-10-24 15:39 | NUR ---
DR. PATEL VISITED WITH FAMILY AND SPOKE WITH DTR AND SON. ALL AGREEABLE WITH REFERRAL BEING SENT TO HOSPICE FOR EVALUATION FOR POSSIBLE HOSPICE HOUSE ADMISSION. SHOULD THEY ASSESS AND FIND THAT PT IS APPROPRIATE FOR ADMISSION CONTACT FAX .
--- NOTE | 2018-10-24 15:43 | NUR ---
DISCHARGE PLANNING. HOSPICE HOUSE RECOMMENDED FOR PATIENT. REFERRAL FAXED TO [facility] [employer] [employer] [facility], FOR HOSPICE HOUSE ADMISSION THIS WEEKEND. CALL PLACED TO [facility] TO NOTIFY OF REFERRAL AND PLAN FOR PLACEMENT [facility] WEEKEND. [facility] TO NOTIFY INTAKE AND NOTIFY CM. UNIT SW AWARE. FOLLOWING.
[2018-10-24 17:44] VITALS: BP 120/54
[2018-10-24 19:22] VITALS: BP 102/51
--- NOTE | 2018-10-24 20:51 | NUR ---
PATIENT ORIENTED TO SELF AND LOCATION, NO CODE, PALLATIVE CARE WITH SISTERS AT BEDSIDE. DAUGHTER, KAPIL, AT BEDSIDE THIS AFTERNOON AND AGREEABLE TO [facility] TRANSFER. ERIN, PATIENT'S SON WOULD LIKE TO SEE PATIENT BEFORE TRANSFER TO [facility] AND IS EXPECTED TO BE AT THE BEDSIDE SOMETIME TOMORROW. HOSPICE NURSE WOULD LIKE TO KEEP PERPHERAL IV INSERT UPON DISCHARGE IN ORDER TO ADMINISTER IV MEDS AT [facility]. PLEASE CALL REPORT TO [facility] BEFORE TRANSFER AND FAX TRANSPORT PAPERS TO [facility] PRIOR TO DISCHARGE. PAPERWORK IS IN FOUNDER AND CHIEF EXECUTIVE OFFICER OUTSIDE PATIENT ROOM.
--- NOTE | 2018-10-25 06:25 | NUR ---
PATIENT ALERT AND ORIENTED TO SELF. C/O PAIN SEVERAL TIMES TONIGHT. MED GIVEN ALONG WIHT BENADRYL AND/OR LORAZEPAM WHEN TIME. FAMILY MEMBER AT BEDSIDE AT ALL TIMES. DRESSING ON SACRAL WOUND INTACT. SLEPT OFF AND ON DURING NIGHT.
[2018-10-25 07:20] VITALS: BP 89/41
--- NOTE | 2018-10-25 13:27 | NUR ---
Received asleep on bed, patient responding to pain, moaning and able to obey commands. On oxygen at 2lpm via nasal cannula. On clear liquids-patient refusing to eat and drink despite encouragement; mouth care done; pt may have pleasure feeding PO as ordered by Dr Shin. Pt turned regularly. With L fistula at L upper arm, dressing C/D/I. With skin tears at Left upper arm and left hand- dressing changed, photo taken- charted.
[2018-10-25 13:37] VITALS: BP 99/48
--- NOTE | 2018-10-25 14:35 | HC ---
[facility] [place] [place] [place] [address] CONSULTATION Name: PERNELL PEREZ Room #: 451-P ADM IN M.R.#: [id number] Admission: 10/19/18 ������������������ Attend Phys: Zhen Guerin MD Discharge: ������������������ Date of : 51 Report #: [id number] THIS REPORT FOR: //name// CC: Marie Elbert Guerin DATE OF SERVICE: 10/20/2018 HISTORY OF PRESENT ILLNESS: This is a 63-year-old female patient for whom a consultation was requested to evaluate the patient for the possibility of stroke. The patient is unresponsive and unable to provide any history. The daughter is here. She does not live with the patient. The patient lives with the son. It looks like this patient has intractable medical problems. I reviewed the note of her senior loan officer who has known her well and it looks like this patient has significantly deteriorated recently. Daughter tells me that she underwent a dialysis on Saturday. She had some bleeding in her rectal area. She came to Emergency Room and was managed there. She was sent home, but she was never much responsive after that. She was somewhat responsive on Saturday night. Saturday, she was only minimally responsive. Saturday, she became completely unresponsive and she was brought here. Records indicate that she was diagnosed with hemorrhoid and she continued to be unresponsive. It looks like this patient's symptoms started on Saturday and they have continuously progressed. In the meantime, she was noticed to have weakness on the left side, which is profound. REVIEW OF SYSTEMS: Indicate she had a small stroke in 2017 and she was seen by Dr. Manriquez who did the neurological workup on her. MRI did confirm a small stroke, but MRA of the [place] was unremarkable. She needed some therapy and rehabilitation, but after some rehabilitation and therapy, she did reasonably well according to the daughter. Recently, she has deteriorated and she has numerous medical issues and numerous medical conditions for which she has been admitted. REVIEW OF SYSTEMS: Also positive for diabetes, end-stage renal disease, neuropathy, hypothyroidism, CVA, liver cirrhosis, rotator cuff, hysterectomy and it looks like the patient is being considered for hospice or palliative care. She also has multiple metabolic problems, which include very low hemoglobin. This was her relevant 14-point review of system, which is pretty elaborate and extensive. PAST MEDICAL HISTORY: Positive for end-stage renal disease. It is also positive for stroke as summarized in the note above. FAMILY HISTORY: Unremarkable. [address] [address] CONSULTATION Name: PERNELL PEREZ Room #: 451-P ADM IN M.R.#: [id number] Admission: 10/19/18 ������������������ Attend Phys: Zhen Guerin MD Discharge: ������������������ Date of : 51 Report #: [id number] SOCIAL HISTORY: She has a supportive family and I talked to the patient's daughter. PHYSICAL EXAMINATION: The patient's examination is pretty limited. This patient did not respond to me at all, so I cannot carry out rest of the neurological examination. I cannot elicit any reflex. There is no meningeal sign. Cardiac and respiratory examinations appear noncontributory. IMPRESSION: I discussed with the daughter that it is possible that she had extended her stroke that is in addition to multiple other problems she is having including low hemoglobin and may be pretty significant encephalopathy. I discussed her options with her and I talked to the nurse an MRI. It looks like she is going to be on dialysis. They are thinking about comfort care. If she goes for comfort care, we will not do any further workup. If they do not, then I have ordered an MRI. She will need imaging studies of her vessels and she will need an EEG. As I understand, they do not want to make her comfort care on her birthday, which is today, but they are leaning towards that and we will await their decision. A total of about 50 minutes of time was spent taking care of this patient and majority of that time was spent counseling and coordinating this patient's care. ��������������������������������������������� <ELECTRONICALLY SIGNED> ���������������������������������������� By: Pavan Hoyt MD ��������������������������������������������� 10/25/18 1435 [id number] Pavan Hoyt MD /nt
[2018-10-25 19:30] VITALS: BP 88/38
--- NOTE | 2018-10-26 03:42 | NUR ---
ASSUMED CARE AROUND 1900. DROWSY WITH SPONTANEOUS EYE OPENING AND RESPONSIVE TO PAINFUL STIMULI. Q2 TURNS. FAMILY AT BEDSIDE. PUT BACK ON O2 FOR COMFORT. NO S/S ACUTE DISTRESS NOTED OR REPORTED AT THIS TIME. WILL CONT TO MONITOR FOR ANY CHANGES IN CONDITION.
[2018-10-26 07:22] VITALS: BP 93/47
--- NOTE | 2018-10-26 14:45 | NUR ---
TOWARDS POC PT IS FOR DC. PT IS FOR DC HOME WITH HOSPICE. DC DELAYED BECAUSE PT HOUSE HAS NO BED. NEED TO ARRANGE BED FOR PT. TRANSPO ALREADY ARRANGED. WILL LEAVE THE IV IN. PRN MORPHINE GIVEN. WILL CONTINUE TO MONITOR.
== END 2018-10-26 16:32 | disposition hospice, home (50) | DRG 64 ==
LOC: 3W 22:46 → 4W 10-22 14:51
PROVIDERS: Internal Medicine; Nurse Practitioner; ADMIT Internal Medicine
PROC: 5A1D70Z Performance of Urinary Filtration, Intermittent, Less than 6 Hours Per Day (ICD-10-PCS; principal; 2018-10-20)
PROC: 30233N1 Transfusion of Nonautologous Red Blood Cells into Peripheral Vein, Percutaneous Approach (ICD-10-PCS; principal; 2018-10-20)
DX: I63.231 Cerebral infarction due to unspecified occlusion or stenosis of right carotid arteries (principal); N18.6 End stage renal disease; J96.21 Acute and chronic respiratory failure with hypoxia; K92.2 Gastrointestinal hemorrhage, unspecified; F11.20 Opioid dependence, uncomplicated; I50.32 Chronic diastolic (congestive) heart failure; I13.2 Hypertensive heart and chronic kidney disease with heart failure and with stage 5 chronic kidney disease, or end stage renal disease; K72.90 Hepatic failure, unspecified without coma; K74.60 Unspecified cirrhosis of liver; J44.9 Chronic obstructive pulmonary disease, unspecified; I25.10 Atherosclerotic heart disease of native coronary artery without angina pectoris; E03.9 Hypothyroidism, unspecified; E11.22 Type 2 diabetes mellitus with diabetic chronic kidney disease; Z66 Do not resuscitate; R41.0 Disorientation, unspecified; E11.42 Type 2 diabetes mellitus with diabetic polyneuropathy; F17.210 Nicotine dependence, cigarettes, uncomplicated; D63.1 Anemia in chronic kidney disease; B19.20 Unspecified viral hepatitis C without hepatic coma; I27.20 Pulmonary hypertension, unspecified; Z96.659 Presence of unspecified artificial knee joint; B18.2 Chronic viral hepatitis C; Z90.710 Acquired absence of both cervix and uterus; E78.5 Hyperlipidemia, unspecified; Z51.5 Encounter for palliative care; Z83.3 Family history of diabetes mellitus; Z82.49 Family history of ischemic heart disease and other diseases of the circulatory system; Z79.899 Other long term (current) drug therapy; Z86.19 Personal history of other infectious and parasitic diseases; Z79.82 Long term (current) use of aspirin; Z95.5 Presence of coronary angioplasty implant and graft; Z99.2 Dependence on renal dialysis; Z86.718 Personal history of other venous thrombosis and embolism; Z90.49 Acquired absence of other specified parts of digestive tract; Z91.14 Patient's other noncompliance with medication regimen
CPT/HCPCS: 10047; 10080; 10879; 32100